=== PATIENT | male | born 1985 | race Caucasian/White ===

== ENCOUNTER 2016-12-19 21:46 | Observation (INO) | payer OTHER ==
[~2016-12-19] VITALS: Ht 175.3 cm; Wt 110.2 kg
[2016-12-19] MEDS ORDERED: ONDANSETRON 8 MG/54 ML D5W IV STA (22:19)
[2016-12-19] MEDS ORDERED: SODIUM CHLORIDE 0.9% 1000ML 1,000 ML IV STA (22:19)
[2016-12-19] MEDS ORDERED: MoRPHine SULFATE 4 MG/ML 1 ML CARP\\VIAL IV STA (22:19)
--- NOTE | 2016-12-19 22:21 | EMERGENCY ROOM VISIT NOTE ---
History Report prepared by Opal: Leonard Bowens Under the Supervision of: Alber JimenezO. First contact with patient: 22:02 Chief Complaint: ABDOMINAL PAIN Stated Complaint: ABD PAIN, GUARDING, EMESIS X4 History of Present Illness The patient is a 31 year old male who presents to the Emergency Room with complaints of worsening, waxing and waning right lower quadrant abdominal pain that started last night which has become constant today. He states that it is cramping and squeezing, and it feels like a 10/10 in severity. The patient states that he has never had pain like this in the past, and nothing makes it better or worse. The patient states that the pain does not go into his back. The patient denies any history of surgery, urinary symptoms, change in bowel movements, fevers, or chills. He additionally notes that this morning he vomited four times, and he kyle not take any medications. Pt denies headache, change in vision, fevers, chest pain, shortness of breath, diarrhea, and melena. Source of History: patient Onset: last night Position: abdomen (RLQ) Symptom Intensity: Quality: cramping, other (squeezing) Timing: constant Associated Symptoms: + nausea, + vomiting, No urinary symptoms Review of Systems See HPI for pertinent positives & negatives. A total of 10 systems reviewed and were otherwise negative. 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) Current/Historical Medications No Active Prescriptions or Reported Meds Allergies Coded Allergies: No Known Allergies (Unverified , 12/19/16) Physical Exam Vital Signs Date Time Temp Pulse Resp B/P (MAP) Pulse Ox O2 Delivery O2 Flow Rate FiO2 12/20/16 00:37 38.8 104 17 176/86 98 Room Air 12/20/16 00:33 12/19/16 23:50 93 17 151/88 96 Room Air 12/19/16 21:53 37.1 89 18 158/95 94 Room Air Physical Exam GENERAL: alert, well appearing, well nourished, no distress, non-toxic EYE EXAM: normal conjunctiva, PERRL and EOM's grossly intact OROPHARYNX: no exudate, no erythema, lips, buccal mucosa, and tongue normal and mucous membranes are moist NECK: supple, no nuchal rigidity, no adenopathy, non-tender LUNGS: Clear to auscultation. Normal chest wall mechanics HEART: no murmurs, S1 normal and S2 normal ABDOMEN: Right lower quadrant tenderness. \Abdomen soft, normo-active bowel sounds, no masses, no rebound or guarding. BACK: Back is symmetrical on inspection and there is no deformity, no midline tenderness, no CVA tenderness. SKIN: no rashes and no bruising UPPER EXTREMITIES: upper extremities are grossly normal. LOWER EXTREMITIES: No pitting edema. NEURO EXAM: Deaf Normal sensorium, cranial nerves II-XII grossly intact, no gross weakness of arms, no gross weakness of legs. Medical Decision & Procedures ER Provider Diagnostic Interpretation: Radiology results have been interpreted by the radiologist and reviewed by me. CT ABDOMEN & PELVIS: The appendix is dilated to 1.2 cm in caliber. There is wall thickening. Periappendiceal edema is present. A small appendicolith is noted. The combination of findings is compatible with acute appendicitis. No definite evidence for perforation or abscess in this noncontrast examination. Trace free fluid in the pelvis. Questionable 1.3 cm nodule in the first image at the medial right lower lobe. This is incompletely imaged. Follow-up with nonemergent/outpatient CT chest. Remainder of noncontrast study shows no definite evidence for an additional acute inflammatory process. Radiologist: Orlando Delong M.D. Laboratory Results 12/19/16 22:31 Red Blood Count 5.63, Mean Corpuscular Volume 88.3, Mean Corpuscular Hemoglobin 30.2, Mean Corpuscular Hemoglobin Concent 34.2, Mean Platelet Volume 9.7, Neutrophils (%) (Auto) 78.2, Lymphocytes (%) (Auto) 13.4, Monocytes (%) (Auto) 7.7, Eosinophils (%) (Auto) 0.2, Basophils (%) (Auto) 0.1, Neutrophils # (Auto) 14.19, Lymphocytes # (Auto) 2.44, Monocytes # (Auto) 1.40, Eosinophils # (Auto) 0.03, Basophils # (Auto) 0.02 12/19/16 22:31 Test 12/19/16 22:31 White Blood Count 18.16 K/uL (4.8-10.8) Red Blood Count 5.63 M/uL (4.7-6.1) Hemoglobin 17.0 g/dL (14.0-18.0) Hematocrit 49.7 % (42-52) Mean Corpuscular Volume 88.3 fL (80-100) Mean Corpuscular Hemoglobin 30.2 pg (25-34) Mean Corpuscular Hemoglobin Concent 34.2 g/dl (32-36) Platelet Count 290 K/uL (130-400) Mean Platelet Volume 9.7 fL (7.4-10.4) Neutrophils (%) (Auto) 78.2 % Lymphocytes (%) (Auto) 13.4 % Monocytes (%) (Auto) 7.7 % Eosinophils (%) (Auto) 0.2 % Basophils (%) (Auto) 0.1 % Neutrophils # (Auto) 14.19 K/uL (1.4-6.5) Lymphocytes # (Auto) 2.44 K/uL (1.2-3.4) Monocytes # (Auto) 1.40 K/uL (0.11-0.59) Eosinophils # (Auto) 0.03 K/uL (0-0.5) Basophils # (Auto) 0.02 K/uL (0-0.2) RDW Standard Deviation 44.5 fL (36.4-46.3) RDW Coefficient of Variation 13.7 % (11.5-14.5) Immature Granulocyte % (Auto) 0.4 % Immature Granulocyte # (Auto) 0.08 K/uL (0.00-0.02) Anion Gap 6.0 mmol/L (3-11) Estimated GFR () 127.1 Estimated GFR (Non- 109.7 BUN/Creatinine Ratio 8.4 (10-20) Calcium Level 9.8 mg/dl (8.5-10.1) Total Bilirubin 0.8 mg/dl (0.2-1) Aspartate Amino Transf (AST/SGOT) 11 U/L (15-37) Alanine Aminotransferase (ALT/SGPT) 29 U/L (12-78) Alkaline Phosphatase 99 U/L (45-117) Total Protein 8.2 gm/dl (6.4-8.2) Albumin 4.3 gm/dl (3.4-5.0) Globulin 3.9 gm/dl (2.5-4.0) Albumin/Globulin Ratio 1.1 (0.9-2) Lipase 45 U/L (73-393) Laboratory results per my review. Medications Administered Medications (Trade) Dose Ordered Sig/Chau Route Start Time Stop Time Status Last Admin Dose Admin Sodium Chloride 1,000 ml @ 200 mls/hr Q5H STAT IV 12/19/16 22:19 12/20/16 03:18 12/19/16 23:12 200 MLS/HR Morphine Sulfate (MoRPHine SULFATE INJ) 4 mg NOW STAT IV 12/19/16 22:19 12/19/16 22:20 DC 12/19/16 23:12 4 MG Ondansetron HCl (Zofran 8mg Iv) 8 mg NOW STAT IV 12/19/16 22:19 12/19/16 22:21 DC 12/19/16 23:12 8 MG Morphine Sulfate (MoRPHine SULFATE INJ) 4 mg NOW STAT IV 12/20/16 00:01 12/20/16 00:02 DC 12/20/16 00:18 4 MG ED Course 2202: The patient was evaluated in room C5. A complete history and physical exam was performed. 2219: Zofran 8mg IV, Morphine Sulfate 4mg IV, Sodium Chloride 1000 ml @ 200 mls/ hr IV 2345: I reevaluated the patient using the junior designer. I discussed the treatment plan with the patient, and he was agreeable to the plan. 2351: I reviewed the patient's case with Dr. Shaw. He will evaluate the patient for further management. Medical Decision Differential diagnosis: Etiologies such as appendicitis, diverticulitis, PUD, biliary pathology, UTI, pancreatitis, obstruction, mesenteric ischemia, aortic pathology, infections, inflammatory bowel disease, renal colic, as well as others were entertained. Patient well-appearing here, acute appendicitis confirmed on CAT scan, no perforation or abscess. Patient leukocytosis secondary to appendicitis, doubt additional occult infectious etiology. Doubt bacteremia/sepsis. Patient aware of all results was agreeable with plan. Discussed case with Dr. Shaw. I'll bedside discussions performed using junior designer via iPAD. Medication Reconcilliation Current Medication List: was personally reviewed by me Blood Pressure Screening Patient's blood pressure: Elevated blood pressure Blood pressure disposition: Elevated BP felt to be situational Consults Time Called: [phone] Consulting Physician: Dr. Shaw, Surgery Returned Call: [phone] I reviewed the patient's case with Dr. Shaw, Surgery. He will evaluate the patient for further management. Impression Primary Impression: Appendicitis Scribe Attestation The scribe's documentation has been prepared under my direction and personally reviewed by me in its entirety. I confirm that the note above accurately reflects all work, treatment, procedures, and medical decision making performed by me. Departure Information Dispostion Being Evaluated By Surgeon Prescriptions No Active Prescriptions or Reported Meds Patient Instructions My [facility] Problem Qualifiers Primary Impression: Appendicitis Appendicitis type: acute appendicitis Acute appendicitis type: with localized peritonitis Qualified Codes: K35.3 - Acute appendicitis with localized peritonitis
[2016-12-19 23:00] LABS: BASO % 0.1 %; BASO ABS # 0.02 K/uL (0-0.2); COMPLETE YES; EOS % 0.2 %; HEMATOCRIT 49.7 % (42-52); IG% 0.4 %; LYMPH % 13.4 %; LYMPH ABS # 2.44 K/uL (1.2-3.4); MEAN CELL VOLUME 88.3 fL (80-100); MEAN CORPUSCULAR HEMOGLOBIN 30.2 pg (25-34); MEAN CORPUSCULAR HGB CONC 34.2 g/dl (32-36); MEAN PLATELET VOLUME 9.7 fL (7.4-10.4); MONO % 7.7 %; NEUT % 78.2 %; PLATELET COUNT 290 K/uL (130-400); RED BLOOD COUNT 5.63 M/uL (4.7-6.1); WHITE BLOOD COUNT 18.16 K/uL (4.8-10.8)
[2016-12-19 23:20] LABS: ALT/SGPT 29 U/L (12-78); BLOOD UREA NITROGEN 8 mg/dl (7-18); BUN/CREATININE RATIO 8.4 (10-20); CALCIUM 9.8 mg/dl (8.5-10.1); CARBON DIOXIDE 29 mmol/L (21-32); CHLORIDE 103 mmol/L (98-107); CREATININE 0.92 mg/dl (0.60-1.40); GLUCOSE 107 mg/dl (70-99); SODIUM 138 mmol/L (136-145)
[2016-12-19 23:23] LABS: ALB/GLOB RATIO 1.1 (0.9-2); ALKALINE PHOSPHATASE 99 U/L (45-117); AST/SGOT 11 U/L (15-37)
[2016-12-20] VITALS (8 sets, daily range): BP systolic 115–129; BP diastolic 65–74; PULSE 62–116; TEMP 37–38.1; O2SAT 93–96; Ht 175.3 cm; Wt 110.2 kg
[2016-12-20] MEDS ORDERED: MoRPHine SULFATE 4 MG/ML 1 ML CARP\\VIAL IV STA (00:01)
[2016-12-20] MEDS ORDERED: BUPIVACAINE 0.5 % 5 MG/1 ML MPF 30ML VIAL ONE (00:27)
--- NOTE | 2016-12-20 00:31 | History and Physical ---
History & Physical Date & Time of Service: Dec 20, 2016 at 00:26 Chief Complaint: Abd Pain, Guarding, Emesis X4 Primary Care Physician: No Doctor, Assigned History of Present Illness Source: patient 31 yr old inmate presents with right lower quadrant pain of 1 days duration. Crampy, sharp, very severe (10/10), no radiation. Started earlier today, constant, worsening. No relation to activity. No relieving factors. Vomited earlier today. No fevers. Last meal was a small amount of rice at dinner, not hungry. No prior similar symptoms. Pt is deaf and a page designer was used. Past Medical/Surgical History Deaf. No other medical issues. No prior surgical procedures. 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 (prisoner) Allergies Coded Allergies: No Known Allergies (Unverified , 12/19/16) Home Medications No Active Prescriptions or Reported Meds Review of Systems Constitutional: No problem reported Eyes: No problem reported ENT: + hearing loss (pt is deaf), + problem reported Respiratory: No problem reported Cardiovascular: No problem reported Abdomen: + pain, + vomiting Musculoskeletal: No problem reported Genitourinary - Male: No problem reported Neurologic: No problem reported Endocrine: No problem reported Hematologic / Lymphatic: No problem reported Integumentary: No problem reported Allergic / Immunologic: No problem reported Physical Exam Vital Signs Date Time Temp Pulse Resp B/P (MAP) Pulse Ox O2 Delivery O2 Flow Rate FiO2 12/19/16 23:50 93 17 151/88 96 Room Air 12/19/16 21:53 37.1 89 18 158/95 94 Room Air General Appearance: WD/WN, no apparent distress Head: normocephalic, atraumatic Eyes: normal inspection, PERRL ENT: normal ENT inspection Neck: supple, no JVD Respiratory/Chest: lungs clear, normal breath sounds, no respiratory distress Cardiovascular: regular rate, rhythm, no JVD, no murmur Abdomen/GI: normal bowel sounds, soft, no organomegaly, + tenderness (over McBurney's point), + guarding Back: normal inspection, no muscle spasm Extremities/Musculoskelatal: no calf tenderness, no pedal edema Neurologic/Psych: alert, normal mood/affect, normal reflexes, oriented x 3 Skin: normal color, warm/dry Diagnostics Laboratory Results Results Past 24 Hours Test 9/8/17 22:31 Range/Units White Blood Count 18.16 4.8-10.8 K/uL Red Blood Count 5.63 4.7-6.1 M/uL Hemoglobin 17.0 14.0-18.0 g/dL Hematocrit 49.7 42-52 % Mean Corpuscular Volume 88.3 80-100 fL Mean Corpuscular Hemoglobin 30.2 25-34 pg Mean Corpuscular Hemoglobin Concent 34.2 32-36 g/dl Platelet Count 290 130-400 K/uL Mean Platelet Volume 9.7 7.4-10.4 fL Neutrophils (%) (Auto) 78.2 % Lymphocytes (%) (Auto) 13.4 % Monocytes (%) (Auto) 7.7 % Eosinophils (%) (Auto) 0.2 % Basophils (%) (Auto) 0.1 % Neutrophils # (Auto) 14.19 1.4-6.5 K/uL Lymphocytes # (Auto) 2.44 1.2-3.4 K/uL Monocytes # (Auto) 1.40 0.11-0.59 K/uL Eosinophils # (Auto) 0.03 0-0.5 K/uL Basophils # (Auto) 0.02 0-0.2 K/uL RDW Standard Deviation 44.5 36.4-46.3 fL RDW Coefficient of Variation 13.7 11.5-14.5 % Immature Granulocyte % (Auto) 0.4 % Immature Granulocyte # (Auto) 0.08 0.00-0.02 K/uL Sodium Level 138 136-145 mmol/L Potassium Level 4.0 3.5-5.1 mmol/L Chloride Level 103 98-107 mmol/L Carbon Dioxide Level 29 21-32 mmol/L Anion Gap 6.0 3-11 mmol/L Blood Urea Nitrogen 8 7-18 mg/dl Creatinine 0.92 0.60-1.40 mg/dl Estimated GFR () 127.1 Estimated GFR (Non- 109.7 BUN/Creatinine Ratio 8.4 10-20 Random Glucose 107 70-99 mg/dl Calcium Level 9.8 8.5-10.1 mg/dl Total Bilirubin 0.8 0.2-1 mg/dl Aspartate Amino Transf (AST/SGOT) 11 15-37 U/L Alanine Aminotransferase (ALT/SGPT) 29 12-78 U/L Alkaline Phosphatase 99 45-117 U/L Total Protein 8.2 6.4-8.2 gm/dl Albumin 4.3 3.4-5.0 gm/dl Globulin 3.9 2.5-4.0 gm/dl Albumin/Globulin Ratio 1.1 0.9-2 Lipase 45 73-393 U/L Diagnostic Radiology CT scan showed a 1.3 cm dilated appendix with periappendiceal stranding and appendicolith c/w acute appendicitis Impression Assessment and Plan 31 yr old man with acute appendicitis. Discussed laparoscopic appendectomy with risks of bleeding, infection, conversion to open, postop abscess. Expected overnight hospital stay and 1-2 wk recovery period reviewed. Postop instructions reviewed. Consent signed. For OR tonight.
[2016-12-20] MEDS ORDERED: CEFOXITIN 2000MG/60 ML D5W IV STA (00:44)
[2016-12-20] MEDS ORDERED: FENTANYL CITRATE INJ 50 MCG/1 ML 2 ML VIAL ONE ×3 (01:03→02:33)
[2016-12-20] MEDS ORDERED: PROPOFOL IV EMULSION 10 MG/ML 20 ML VIAL IV ONE (01:38)
[2016-12-20] MEDS ORDERED: LIDOCAINE HCL 2% 2 ML VIAL (20MG/ML) ONE (01:39)
[2016-12-20] MEDS ORDERED: DEXAMETHASONE SOD INJ 4 MG/ML VIAL ONE (01:40)
[2016-12-20] MEDS ORDERED: ONDANSETRON INJ 2 MG/ML 2 ML VIAL ONE ×2 (01:40→02:33)
[2016-12-20] MEDS ORDERED: ROCURONIUM BROMIDE 10 MG/ML 5 ML VIAL IV ONE (01:40)
[2016-12-20] MEDS ORDERED: CEFOXITIN SOD 1 GM VIAL ONE (01:43)
--- NOTE | 2016-12-20 02:13 | [facility] Post Operative Brief Note ---
Immediate Operative Summary Operative Date Dec 20, 2016. Pre-Operative Diagnosis Acute Appendicitis Post-Operative Diagnosis Acute Appendicitis Procedure(s) Performed Laparoscopic Appendectomy Surgeon Dr. Marie Shaw Quotation Checker Surgeon(s) None Estimated Blood Loss 5 cc Findings very dilated inflamed appendix with inflammation very difficult to enter abdomen - air was insufflated into the preperitoneal space Fluids (cc crystalloids) 1000 cc Specimens Per Surgeon A: Appendix Drains none Anesthesia GET Complication(s) None Disposition Recovery Room / PACU
[2016-12-20] MEDS ORDERED: MoRPHine SULFATE 2 MG/ML CARP IV PRN ×2 (02:15)
[2016-12-20] MEDS ORDERED: ACETAMINOPHEN 325 MG TAB PO PRN (02:15)
[2016-12-20] MEDS ORDERED: ONDANSETRON INJ 2 MG/ML 2 ML VIAL IV PRN ×2 (02:15→02:45)
[2016-12-20] MEDS ORDERED: OXYCODONE/ACETAMINOPHEN 5-325 TAB PO PRN ×2 (02:15)
[2016-12-20] MEDS ORDERED: IV FLUIDS COMPLETED PRN (02:30)
[2016-12-20] MEDS ORDERED: MEPERIDINE HCL 25 MG/ML CARP IV PRN (02:45)
[2016-12-20] MEDS ORDERED: HYDROmorphone INJ 1 MG/ML SYR IV PRN (02:45)
[2016-12-20] MEDS ORDERED: FENTANYL CITRATE INJ 50 MCG/1 ML 2 ML VIAL IV PRN (02:45)
[2016-12-20] MEDS ORDERED: EpHEDrine SULFATE INJ 50 MG/ML AMP IV PRN (02:45)
[2016-12-20] MEDS ORDERED: LABETALOL HCL IV 5 MG/ML 20ML IV PRN (02:45)
[2016-12-20] MEDS ORDERED: ATROPINE SULFATE 0.1 MG/ML 5ML SYR IV PRN (02:45)
--- NOTE | 2016-12-20 02:55 | Anesthesiology Progress Note ---
Anesthesia Post Op Note Date & Time Dec 20, 2016 at 02:54 Vital Signs Pain Intensity: 0 Vital Signs Past 12 Hours Date Time Temp Pulse Resp B/P (MAP) Pulse Ox O2 Delivery O2 Flow Rate FiO2 12/20/16 02:45 100 15 146/80 98 Nasal Cannula 2 12/20/16 02:35 99 15 160/87 99 Oxymask 10 12/20/16 02:25 86 18 161/79 99 Oxymask 10 12/20/16 02:17 36.4 86 17 156/90 100 Oxymask 10 12/20/16 00:37 38.8 104 17 176/86 98 Room Air 12/20/16 00:33 12/19/16 23:50 93 17 151/88 96 Room Air 12/19/16 21:53 37.1 89 18 158/95 94 Room Air Notes Mental Status: alert / awake / arousable, participated in evaluation Pt Amnestic to Procedure: Yes Nausea / Vomiting: adequately controlled Pain: adequately controlled Airway Patency, RR, SpO2: stable & adequate BP & HR: stable & adequate Hydration State: stable & adequate Anesthetic Complications: no major complications apparent
[2016-12-20] MEDS: D5W AND 1/2NSS + 20MEQ KCL 1,000 ML IV SCH ×2 (04:08→11:41)
[2016-12-20] MEDS: MoRPHine SULFATE 4 MG/ML 1 ML CARP\\VIAL IV PRN ×3 (05:13→09:10)
--- NOTE | 2016-12-20 05:49 | OPERATIVE REPORT ---
DATE OF OPERATION: 12/20/2016 PREOPERATIVE DIAGNOSIS: Acute appendicitis. POSTOPERATIVE DIAGNOSIS: Acute suppurative appendicitis. PROCEDURE: Laparoscopic appendectomy. SURGEON: Dr. Marie Shaw. COLORIST: None. ANESTHESIA: General endotracheal anesthesia. ESTIMATED BLOOD LOSS: 5 mL IV FLUIDS: 1000 mL SPECIMENS: Appendix. COMPLICATIONS: None. OPERATIVE FINDINGS: Suppurative inflamed appendix, very difficult to enter abdomen. Air was injected into the preperitoneal space on 3 separate attempts and this led to subcutaneous air tracking into his groin and scrotum. INDICATIONS: Mr. Cheema is a 31-year-old gentleman, who presented with acute appendicitis. He was consented regarding laparoscopic appendectomy. He had no prior surgical procedures. OPERATION AND FINDINGS: The patient received cefoxitin preoperatively. After the induction of general endotracheal anesthesia, he had placement of sequential compression devices. His abdomen was clipped and then sterilely prepped and draped. A supraumbilical incision was made. A Veress needle was attempted to be placed into the peritoneal cavity. This was tested with the saline drop test and pneumoperitoneum was attached. Initial pressure was 6 mmHg. For this reason, the Veress needle was removed and another attempt was made to reinsert the Veress again. This was tested with the saline drop test. Pneumoperitoneum was again connected. The pressure at this point was 7. The Veress needle was removed and the incision extended. An attempt was made to grasp the fascia. He had a significant amount of subcutaneous tissue over this with unusual elasticity to it. Again, a Veress needle was inserted. Attempt was made at insufflation after the saline drop test, appeared to be okay, but the pressure was again too high. Thus, the incision was again extended and carried all the way down. The fascia was finally visualized directly and grasped and the Veress needle placed into the peritoneal cavity and pneumoperitoneum taken to 15 mmHg and a 5 mm trocar placed. Inspection of the abdomen revealed that all the other attempts had never actually entered the abdominal cavity. He did have evidence of air in the abdominal wall. A 5 mm was placed in the left lower quadrant. The 5 mm at the umbilicus was changed to a 12 mm and another 5 mm placed in the midline pubic area. The appendix was noted to have suppurative changes and was attached to the sidewall. Inflammatory adhesions to it were taken down. The appendix was peeled off the sidewall. A window was created at the base of the appendix on the cecum and the appendix was divided off the cecum with a firing of the ASHLEY 45 purple load stapler. The appendiceal mesentery was taken with a second firing of the ASHLEY vascular load stapler. The appendix was placed in an Endobag and removed through the umbilical incision. The abdomen was irrigated and suctioned clear. The pneumoperitoneum was released. 30 mL of 0.5% Marcaine had been used for local anesthesia throughout the procedure. The fascia of the umbilicus was closed with 0 Vicryl stitches placed anteriorly. The skin of all 3 incisions was closed with running subcuticular 4-0 Vicryl sutures. Steri-Strips and sterile dressings were applied. At this point, it was noted that the patient's scrotum appeared to be swollen. This was inspected and it was just consistent with air within the subcutaneous spaces and his groin and scrotum. He was awakened from anesthesia and taken to recovery in stable condition. I attest to the content of the Intraoperative Record and any orders documented therein. Any exception s are noted below.
--- NOTE | 2016-12-20 06:01 | DIAGNOSTIC IMAGING REPORT ---
ABD/PELVIS NO IV OR ORAL CONT CT DOSE: 958.96 mGy.cm HISTORY: Pain. Nausea. RLA pain TECHNIQUE: Multiaxial CT images of the abdomen and pelvis were performed without contrast. A dose lowering technique was utilized adhering to the principles of ALARA. COMPARISON STUDY: None. FINDINGS: Lung bases are clear. Liver spleen and pancreas appear unremarkable. Kidneys negative for hydronephrosis. Spleen is uniform. The appendix is distended to 12 mm. There is moderate periappendiceal infiltrative change. There is no evidence for abscess collection or obstruction. There is a small 5 mm appendicolith. No evidence for drainable abscess or collection. Small amount of free fluid within the pelvic cul-de-sac. IMPRESSION: Acute appendicitis. No evidence for abscess collection or obstruction change. The above report was generated using voice recognition software. It may contain grammatical, syntax or spelling errors. Electronically signed by: Ángel Ignacio M.D. 12/20/2016 6:00 AM Dictated Date/Time: 12/20/2016 5:50 AM
--- NOTE | 2016-12-20 08:27 | Surgery Progress Note ---
Surgery Progress Note Date of Service Dec 20, 2016. Subjective Post OP Day: 1 + feeling well, + pain controlled (but is sore), No nausea Objective Vital Signs: Date Time Temp Pulse Resp B/P (MAP) Pulse Ox O2 Delivery O2 Flow Rate FiO2 12/20/16 06:15 37.4 104 18 115/65 (82) 93 Room Air 12/20/16 05:23 94 Room Air 12/20/16 05:15 37.6 116 18 123/72 (89) 96 Room Air 12/20/16 04:15 37.9 111 18 119/70 (86) 96 Room Air 12/20/16 03:45 37.4 62 16 129/69 (89) 94 Nasal Cannula 2.0 12/20/16 03:15 Nasal Cannula 2.0 12/20/16 03:15 95 Nasal Cannula 2.0 12/20/16 03:15 38.1 116 16 126/74 95 Nasal Cannula 2.0 12/20/16 03:05 113 16 133/70 96 Nasal Cannula 2 12/20/16 02:55 37.8 109 17 128/68 96 Nasal Cannula 2 12/20/16 02:45 100 15 146/80 98 Nasal Cannula 2 12/20/16 02:35 99 15 160/87 99 Oxymask 10 12/20/16 02:25 86 18 161/79 99 Oxymask 10 12/20/16 02:17 36.4 86 17 156/90 100 Oxymask 10 12/20/16 00:37 38.8 104 17 176/86 98 Room Air 12/20/16 00:33 12/19/16 23:50 93 17 151/88 96 Room Air 12/19/16 21:53 37.1 89 18 158/95 94 Room Air General Appearance: WD/WN, no apparent distress Respiratory/Chest: no respiratory distress, no accessory muscle use Abdomen: normal bowel sounds, non distended, soft, + tenderness (RLQ) Incision(s): clean, dry, intact Laboratory Results: Results Past 24 Hours Test 12/19/16 22:31 Range/Units White Blood Count 18.16 4.8-10.8 K/uL Red Blood Count 5.63 4.7-6.1 M/uL Hemoglobin 17.0 14.0-18.0 g/dL Hematocrit 49.7 42-52 % Mean Corpuscular Volume 88.3 80-100 fL Mean Corpuscular Hemoglobin 30.2 25-34 pg Mean Corpuscular Hemoglobin Concent 34.2 32-36 g/dl Platelet Count 290 130-400 K/uL Mean Platelet Volume 9.7 7.4-10.4 fL Neutrophils (%) (Auto) 78.2 % Lymphocytes (%) (Auto) 13.4 % Monocytes (%) (Auto) 7.7 % Eosinophils (%) (Auto) 0.2 % Basophils (%) (Auto) 0.1 % Neutrophils # (Auto) 14.19 1.4-6.5 K/uL Lymphocytes # (Auto) 2.44 1.2-3.4 K/uL Monocytes # (Auto) 1.40 0.11-0.59 K/uL Eosinophils # (Auto) 0.03 0-0.5 K/uL Basophils # (Auto) 0.02 0-0.2 K/uL RDW Standard Deviation 44.5 36.4-46.3 fL RDW Coefficient of Variation 13.7 11.5-14.5 % Immature Granulocyte % (Auto) 0.4 % Immature Granulocyte # (Auto) 0.08 0.00-0.02 K/uL Sodium Level 138 136-145 mmol/L Potassium Level 4.0 3.5-5.1 mmol/L Chloride Level 103 98-107 mmol/L Carbon Dioxide Level 29 21-32 mmol/L Anion Gap 6.0 3-11 mmol/L Blood Urea Nitrogen 8 7-18 mg/dl Creatinine 0.92 0.60-1.40 mg/dl Estimated GFR () 127.1 Estimated GFR (Non- 109.7 BUN/Creatinine Ratio 8.4 10-20 Random Glucose 107 70-99 mg/dl Calcium Level 9.8 8.5-10.1 mg/dl Total Bilirubin 0.8 0.2-1 mg/dl Aspartate Amino Transf (AST/SGOT) 11 15-37 U/L Alanine Aminotransferase (ALT/SGPT) 29 12-78 U/L Alkaline Phosphatase 99 45-117 U/L Total Protein 8.2 6.4-8.2 gm/dl Albumin 4.3 3.4-5.0 gm/dl Globulin 3.9 2.5-4.0 gm/dl Albumin/Globulin Ratio 1.1 0.9-2 Lipase 45 73-393 U/L Microbiology Results 12/20/16 MRSA DNA Surveillance Screen, Received Pending Assessment & Plan s/p lap appendectomy. Doing well. [facility] if he can tolerate diet.
--- NOTE | 2016-12-20 08:30 | Discharge Instructions ---
Discharge Instructions Date of Service Dec 20, 2016. Admission Reason for Admission: Appendicitis Discharge Discharge Diagnosis / Problem: acute appendicitis Discharge Goals Goal(s): Decrease discomfort Activity Recommendations Activity Limitations: resume your previous activity (walking/ stairs are OK) Lifting Limitations: no more than 10 pounds (for 2 wks) Exercise/Sports Limitations: gradually increase as tolerated (limit for 2 wks) Shower/Bathe: tomorrow (remove outer gauze dressings first, leave steristrips x 7-10 days) . Current Hospital Diet Patient's current hospital diet: Clear Liquid Diet Discharge Diet Recommended Diet: Regular Diet (soups/ liquids if bloating persists) Procedures Procedures Performed: Laparoscopic Appendectomy Pending Studies Studies pending at discharge: no Medical Emergencies . Who to Call and When: Medical Emergencies: If at any time you feel your situation is an emergency, please call 911 immediately. . Non-Emergent Contact Non-Emergency issues call your: Surgeon Contact Number: [phone] Call Non-Emergent contact if: temperature is above 101.5, your pain is not controlled, your pain is worsening . "Provider Documentation" section prepared by Marie Shaw. . VTE Core Measure Inpt VTE Proph given/why not?: SCD's [place] Drug Monitoring Program Search Results: patient reviewed within database
--- NOTE | 2016-12-20 08:32 | Discharge Summary ---
Discharge Summary Date of Service Dec 20, 2016. Admission Date/Reason Dec 20, 2016 at 02:15 Appendicitis. Discharge Date/Disposition Dec 20, 2016 Home (correctional facility) Diagnosis Principal Diagnosis: acute appendicitis Procedure(s) Performed laparoscopic appendectomy Medication Reconciliation Medication Profile: No Active Prescriptions or Reported Meds Admission Physical Exam As per Admitting History & Physical. Hospital Course Underwent an uncomplicated laparoscopic appendectomy. Diet advanced. Discharged back to correctional facility. Discharge Instructions Please refer to the electronic Patient Visit Report (Discharge Instructions) for additional information.
[2016-12-20] MEDS: CEFOXITIN IV 1,000 MG in DEXTROSE 5% 50ML 50 ML IV SCH ×2 (09:09→13:48)
[2016-12-21] MEDS ORDERED: TYLOTC500 PO (11:43)
[2017-01-18] MEDS ORDERED: IBUP-1459 PO (13:37)
== END 2016-12-20 14:42 | disposition home or self-care (01) ==
LOC: C.EDB 21:48 → C.MSW 12-20 02:15 → ENRESERV 12-20 03:10
PROVIDERS: ADMIT Surgery; ATTEND Surgery
DX: K35.80 Unspecified acute appendicitis (principal); H91.90 Unspecified hearing loss, unspecified ear; F17.200 Nicotine dependence, unspecified, uncomplicated

== ENCOUNTER 2016-12-21 10:08 | Inpatient (IN) | payer OTHER ==
[2016-12-21] VITALS (7 sets, daily range): BP systolic 129–149; BP diastolic 79–91; PULSE 97–119; TEMP 36.8–38.1; O2SAT 90–95; Ht 175.3 cm; Wt 110.0 kg
[~2016-12-21] VITALS: Ht 175.3 cm; Wt 110.0 kg
[2016-12-21] MEDS ORDERED: SODIUM CHLORIDE 0.9% 1000ML 1,000 ML IV STA (10:42)
[2016-12-21] MEDS ORDERED: SODIUM CHLORIDE 0.9% 1000ML 2,000 ML IV STA (10:42)
[2016-12-21] MEDS ORDERED: ONDANSETRON INJ 2 MG/ML 2 ML VIAL IV STA (10:42)
[2016-12-21] MEDS ORDERED: OPTIRAY 320 IV PRN (10:45)
[2016-12-21 11:04] LABS: BASO ABS # 0.01 K/uL (0-0.2); COMPLETE YES; HEMATOCRIT 42.7 % (42-52); IG% 0.4 %; LYMPH % 7.6 %; LYMPH ABS # 1.57 K/uL (1.2-3.4); MEAN CORPUSCULAR HEMOGLOBIN 30.5 pg (25-34); MEAN CORPUSCULAR HGB CONC 34.7 g/dl (32-36); MEAN PLATELET VOLUME 9.6 fL (7.4-10.4); MONO % 8.3 %; NEUT % 83.7 %; PLATELET COUNT 215 K/uL (130-400); RED BLOOD COUNT 4.85 M/uL (4.7-6.1); WHITE BLOOD COUNT 20.73 K/uL (4.8-10.8)
[2016-12-21] MEDS: HYDROmorphone INJ 1 MG/ML SYR IV PRN ×2 (11:05→11:46)
[2016-12-21 11:22] LABS: BLOOD UREA NITROGEN 7 mg/dl (7-18); CREATININE 0.83 mg/dl (0.60-1.40); GLUCOSE 99 mg/dl (70-99)
[2016-12-21 11:23] LABS: ALT/SGPT 19 U/L (12-78); BUN/CREATININE RATIO 8.6 (10-20); CALCIUM 9.4 mg/dl (8.5-10.1); CARBON DIOXIDE 29 mmol/L (21-32); CHLORIDE 103 mmol/L (98-107); POTASSIUM 3.7 mmol/L (3.5-5.1); SODIUM 138 mmol/L (136-145)
[2016-12-21 11:25] LABS: ALKALINE PHOSPHATASE 72 U/L (45-117); AST/SGOT 8 U/L (15-37)
[2016-12-21] MEDS ORDERED: TYLOTC500 PO (11:43)
[2016-12-21] MEDS ORDERED: OXYCODONE/ACETAMINOPHEN 5-325 TAB PO PRN (11:45)
[2016-12-21] MEDS ORDERED: MoRPHine SULFATE 2 MG/ML CARP IV PRN (11:45)
[2016-12-21] MEDS ORDERED: ACETAMINOPHEN 325 MG TAB PO PRN (11:45)
--- NOTE | 2016-12-21 11:47 | History and Physical ---
History & Physical Date & Time of Service: Dec 21, 2016 at 11:38 Chief Complaint: Appendectomy Yesterday - Possible Infection Primary Care Physician: [facility] History of Present Illness Source: patient 31 yr old man s/p lap appy early Sat am. Intraoperatively, it was difficult to access abdomen and a significant amount of air had been insufflated into the subcutaneous space. Once abdomen was entered, the appendectomy was uncomplicated. He was discharged back to the skilled nursing the same day but presents today with diffuse abdominal pain, worse if he lays down, feels it difficult to take a deep breath, nauseated. No vomiting. Did have a bowel movement. Pain is 10/10 in severity, radiates up to his diaphragm, right shoulder, arm. [place] chilled. Unable to get any sleep or rest. Past Medical/Surgical History deafness Social History Smoking Status: Unknown if Ever Smoked Marital Status: single Occupational Status: other Allergies Coded Allergies: No Known Allergies (Unverified , 12/19/16) Home Medications No Active Prescriptions or Reported Meds Review of Systems ROS otherwise negative Physical Exam Vital Signs Date Time Temp Pulse Resp B/P (MAP) Pulse Ox O2 Delivery O2 Flow Rate FiO2 12/21/16 11:19 98 12/21/16 11:08 94 20 140/89 94 Room Air 12/21/16 10:12 37.2 115 18 144/88 96 Room Air General Appearance: WD/WN, no apparent distress Head: normocephalic, atraumatic Eyes: normal inspection ENT: + 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, 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) Respiratory/Chest: lungs clear, normal breath sounds Cardiovascular: + tachycardia Abdomen/GI: normal bowel sounds (hypoactive), soft, + tenderness (diffusely with guarding), + distended (mild), + pertinent finding (incisions clean and intact) Extremities/Musculoskelatal: no pedal edema Neurologic/Psych: alert, oriented x 3 Skin: normal color, warm/dry Diagnostics Laboratory Results Results Past 24 Hours Test 12/21/16 10:55 Range/Units White Blood Count 20.73 4.8-10.8 K/uL Red Blood Count 4.85 4.7-6.1 M/uL Hemoglobin 14.8 14.0-18.0 g/dL Hematocrit 42.7 42-52 % Mean Corpuscular Volume 88.0 80-100 fL Mean Corpuscular Hemoglobin 30.5 25-34 pg Mean Corpuscular Hemoglobin Concent 34.7 32-36 g/dl Platelet Count 215 130-400 K/uL Mean Platelet Volume 9.6 7.4-10.4 fL Neutrophils (%) (Auto) 83.7 % Lymphocytes (%) (Auto) 7.6 % Monocytes (%) (Auto) 8.3 % Eosinophils (%) (Auto) 0.0 % Basophils (%) (Auto) 0.0 % Neutrophils # (Auto) 17.33 1.4-6.5 K/uL Lymphocytes # (Auto) 1.57 1.2-3.4 K/uL Monocytes # (Auto) 1.72 0.11-0.59 K/uL Eosinophils # (Auto) 0.01 0-0.5 K/uL Basophils # (Auto) 0.01 0-0.2 K/uL RDW Standard Deviation 46.4 36.4-46.3 fL RDW Coefficient of Variation 14.3 11.5-14.5 % Immature Granulocyte % (Auto) 0.4 % Immature Granulocyte # (Auto) 0.09 0.00-0.02 K/uL Sodium Level 138 136-145 mmol/L Potassium Level 3.7 3.5-5.1 mmol/L Chloride Level 103 98-107 mmol/L Carbon Dioxide Level 29 21-32 mmol/L Anion Gap 6.0 3-11 mmol/L Blood Urea Nitrogen 7 7-18 mg/dl Creatinine 0.83 0.60-1.40 mg/dl Estimated GFR () 134.9 Estimated GFR (Non- 116.4 BUN/Creatinine Ratio 8.6 10-20 Random Glucose 99 70-99 mg/dl Calcium Level 9.4 8.5-10.1 mg/dl Total Bilirubin 1.1 0.2-1 mg/dl Direct Bilirubin 0.4 0-0.2 mg/dl Aspartate Amino Transf (AST/SGOT) 8 15-37 U/L Alanine Aminotransferase (ALT/SGPT) 19 12-78 U/L Alkaline Phosphatase 72 45-117 U/L Total Protein 7.1 6.4-8.2 gm/dl Albumin 3.3 3.4-5.0 gm/dl Lipase 41 73-393 U/L Impression Assessment and Plan 31 yr old man s/p lap appy early Sat am presents with poor pain control likely due to extensive subcutaneous air insufflated during the multiple attempts to access his abdomen. He will require IV pain medications, IVF. Will give IV abx given his persistent leukocytosis. Explained that the subcutaneous air will resolve but this will take a few days. They are going to find out if it is possible to do narcotics for oral pain control in the skilled nursing. Await CT results but expectation is of a significant amount of subcutaneous emphysema. VTE Prophylaxis VTE Risk Assessment Done? Y/N: Yes Risk Level: Low
[2016-12-21 12:03] LABS: URINE APPEARANCE CLEAR (CLEAR); URINE BILIRUBIN NEG (NEG); URINE COLOR DK YELLOW; URINE EPITHELIAL CELL AUTO >30 /lpf (0-5); URINE NITRITE NEG (NEG); URINE PH 7.5 (4.5-7.5); URINE SPECIFIC GRAVITY 1.018 (1.000-1.030); UROBILINOGEN NEG (NEG); ZZUR CULT IF INDIC CLEAN CATCH YES
[2016-12-21 12:04] LABS: MANUAL MICROSCOPIC REQUIRED? NO; REVIEW REQ? NO
[2016-12-21 12:06] LABS: SULFASALICYLIC ACID NEG (NEG)
[2016-12-21] MEDS ORDERED: PATIENT'S HEIGHT AND/OR WEIGHT NEEDED SCH (12:45)
[2016-12-21 13:39] LABS: INR 1.1 (0.9-1.1); PARTIAL THROMBOPLASTIN RATIO 1.2; PROTHROMBIN TIME (PATIENT) 11.9 SECONDS (9.0-12.0)
[2016-12-21] MEDS: LACTATED RINGER'S 1000ML 1,000 ML IV SCH ×2 (13:50→21:35)
[2016-12-21] MEDS: CEFOXITIN IV 2,000 MG in DEXTROSE 5% 50ML 50 ML IV SCH ×3 (13:50→23:41)
[2016-12-21] MEDS ORDERED: IV FLUIDS COMPLETED PRN (14:00)
--- NOTE | 2016-12-21 14:02 | DIAGNOSTIC IMAGING REPORT ---
ABD/PELVIS IV AND ORAL CONT CT DOSE: 1115.11 mGy.cm HISTORY: Pain severe abd pain, recent appy TECHNIQUE: Multiaxial CT images of the abdomen and pelvis were performed following the use of intravenous and oral contrast. A dose lowering technique was utilized adhering to the principles of ALARA. COMPARISON STUDY: 12/19/2016 FINDINGS: interval segmental atelectasis right base. Minimal dependent bibasilar atelectasis. Free intra-abdominal air scattered throughout the abdomen and pelvis. Trace amount of retroperitoneal air as well as retroperitoneal areas distribution. Liver spleen and pancreas remain unremarkable. Postoperative changes involving the subcutaneous fat left lower anterior abdominal wall as well as periumbilical region. Air is scattered throughout the abdominal and pelvic as well as left inguinal regions regions most likely a postoperative basis. Interval appendectomy. Minimal infiltrative change in the region of the appendiceal location most likely postoperative. No evidence for abscess collection or obstruction. Trace free fluid within the pelvic cul-de-sac. Slight infiltrative change of the perirectal region again most likely postoperative. Bowel pattern again is nonobstructive. Mild/moderate small bowel distention possibly on the basis of a post operative ileus. Mild nonobstructive reactive colonic ileus. IMPRESSION: 1. Interval surgical appendectomy with minimal infiltrative/fibrotic change at the appendiceal resection site. This appears to be unremarkable on a postoperative basis. 2. No evidence for abscess collection or obstruction. 3. Scattered air within the abdomen, pelvic, left inguinal, and incisional site, . This appears to be postoperative. 4. Reactive small bowel as well as colonic ileus. 5. Segmental atelectasis right base with mild bibasilar dependent atelectasis. The above report was generated using voice recognition software. It may contain grammatical, syntax or spelling errors. Electronically signed by: Ángel Ignacio M.D. 12/21/2016 2:01 PM Dictated Date/Time: 12/21/2016 1:52 PM
[2016-12-21] MEDS: ENOXAPARIN 40 MG/0.4 ML SYR SQ SCH (14:14)
[2016-12-21] MEDS: OXYCODONE/ACETAMINOPHEN 5-325 TAB PO PRN ×3 (14:15→23:40)
[2016-12-21] MEDS: KETOROLAC TROMETHAMINE 15 MG/ML VIAL IV PRN (16:00)
--- NOTE | 2016-12-21 16:19 | EMERGENCY ROOM VISIT NOTE ---
History Report prepared by Opal: Dianne Narayan Under the Supervision of: Dr. Jacob Patton M.D. First contact with patient: 10:20 Chief Complaint: INFECTION Stated Complaint: APPENDECTOMY YESTERDAY - POSSIBLE INFECTION Nursing Triage Summary: Appendectomy yesterday performed at [facility], D/C'd yesterday at 1430, last night around 2140 diffuse abdominal pain started 12/21. History of Present Illness The patient is a 31 year old male who presents to the Emergency Room with complaints of an infection today. The patient reports having an appendectomy yesterday. He also complains of right-sided abdominal pain and back pain. He states that he was unable to sleep last night due to the pain and that laying down and deep breathing exacerbate the pain. The patient also has had dysuria, fevers, and chills. The patient reports taking Tylenol today which did not help. Pt denies LOC, headache, diaphoresis, visual changes, neck pain, chest pain, breathing difficulties, nausea, vomiting, melena, hematochezia, numbness, weakness, lymphadenopathy, rash, or other complaints. Source of History: patient Onset: today Position: abdomen Quality: other (infection ) Modifying Factors (Worsening): other (laying down , deep breathing ) Associated Symptoms: + fevers, + chills, + abdominal pain, + back pain, + urinary symptoms (dysuria), No chest pain Review of Systems See HPI for pertinent positives and negatives. A total of ten systems were reviewed and were otherwise negative. Past Medical & Surgical Medical Problems: (1) Abdominal pain (2) Deaf Family History No pertinent family history stated. Social History Smoking Status: Unknown if Ever Smoked Marital Status: single Housing Status: other Occupation Status: other Current/Historical Medications Scheduled Acetaminophen (Tylenol), 1,000 MG PO TID Allergies Coded Allergies: NO KNOWN DRUG ALLERGIES (Verified Allergy, Unknown, none, 12/21/16) Physical Exam Vital Signs Date Time Temp Pulse Resp B/P (MAP) Pulse Ox O2 Delivery O2 Flow Rate FiO2 12/21/16 11:19 98 12/21/16 11:08 94 20 140/89 94 Room Air 12/21/16 10:12 37.2 115 18 144/88 96 Room Air Physical Exam GENERAL: Awake, alert, uncomfortable appearing, in no distress HENT: Normocephalic, atraumatic. Oropharynx unremarkable. EYES: Normal conjunctiva. Sclera non-icteric. NECK: Supple. No nuchal rigidity. FROM. No JVD. RESPIRATORY: Clear to auscultation. CARDIAC: Regular rate, normal rhythm. Extremities warm and well perfused. Pulses equal. ABDOMEN: Diffuse tenderness that is worse on the right. Rebound and guarding present. Tenderness to percussion. RECTAL: Deferred. MUSCULOSKELETAL: Chest examination reveals no tenderness. The back is symmetrical on inspection without obvious abnormality. There is no CVA tenderness to palpation. No joint edema. LOWER EXTREMITIES: Calves are equal size bilaterally and non-tender. No edema. No discoloration. NEURO: Normal sensorium. No sensory or motor deficits noted. SKIN: No rash or jaundice noted. Medical Decision & Procedures ER Provider Diagnostic Interpretation: Radiology results as stated below per my review and radiologist interpretation: ABD/PELVIS IV AND ORAL CONT CT DOSE: 1115.11 mGy.cm HISTORY: Pain severe abd pain, recent appy TECHNIQUE: Multiaxial CT images of the abdomen and pelvis were performed following the use of intravenous and oral contrast. A dose lowering technique was utilized adhering to the principles of ALARA. COMPARISON STUDY: 12/19/2016 FINDINGS: interval segmental atelectasis right base. Minimal dependent bibasilar atelectasis. Free intra-abdominal air scattered throughout the abdomen and pelvis. Trace amount of retroperitoneal air as well as retroperitoneal areas distribution. Liver spleen and pancreas remain unremarkable. Postoperative changes involving the subcutaneous fat left lower anterior abdominal wall as well as periumbilical region. Air is scattered throughout the abdominal and pelvic as well as left inguinal regions regions most likely a postoperative basis. Interval appendectomy. Minimal infiltrative change in the region of the appendiceal location most likely postoperative. No evidence for abscess collection or obstruction. Trace free fluid within the pelvic cul-de-sac. Slight infiltrative change of the perirectal region again most likely postoperative. Bowel pattern again is nonobstructive. Mild/moderate small bowel distention possibly on the basis of a post operative ileus. Mild nonobstructive reactive colonic ileus. IMPRESSION: 1. Interval surgical appendectomy with minimal infiltrative/fibrotic change at the appendiceal resection site. This appears to be unremarkable on a postoperative basis. 2. No evidence for abscess collection or obstruction. 3. Scattered air within the abdomen, pelvic, left inguinal, and incisional site, . This appears to be postoperative. 4. Reactive small bowel as well as colonic ileus. 5. Segmental atelectasis right base with mild bibasilar dependent atelectasis. The above report was generated using voice recognition software. It may contain grammatical, syntax or spelling errors. Electronically signed by: Ángel Ignacio M.D. 12/21/2016 2:01 PM Dictated Date/Time: 12/21/2016 1:52 PM Laboratory Results 12/21/16 10:55 Red Blood Count 4.85, Mean Corpuscular Volume 88.0, Mean Corpuscular Hemoglobin 30.5, Mean Corpuscular Hemoglobin Concent 34.7, Mean Platelet Volume 9.6, Neutrophils (%) (Auto) 83.7, Lymphocytes (%) (Auto) 7.6, Monocytes (%) (Auto) 8.3, Eosinophils (%) (Auto) 0.0, Basophils (%) (Auto) 0.0, Neutrophils # (Auto) 17.33, Lymphocytes # (Auto) 1.57, Monocytes # (Auto) 1.72, Eosinophils # (Auto) 0.01, Basophils # (Auto) 0.01 12/21/16 10:55 Test 12/21/16 10:55 White Blood Count 20.73 K/uL (4.8-10.8) Red Blood Count 4.85 M/uL (4.7-6.1) Hemoglobin 14.8 g/dL (14.0-18.0) Hematocrit 42.7 % (42-52) Mean Corpuscular Volume 88.0 fL (80-100) Mean Corpuscular Hemoglobin 30.5 pg (25-34) Mean Corpuscular Hemoglobin Concent 34.7 g/dl (32-36) Platelet Count 215 K/uL (130-400) Mean Platelet Volume 9.6 fL (7.4-10.4) Neutrophils (%) (Auto) 83.7 % Lymphocytes (%) (Auto) 7.6 % Monocytes (%) (Auto) 8.3 % Eosinophils (%) (Auto) 0.0 % Basophils (%) (Auto) 0.0 % Neutrophils # (Auto) 17.33 K/uL (1.4-6.5) Lymphocytes # (Auto) 1.57 K/uL (1.2-3.4) Monocytes # (Auto) 1.72 K/uL (0.11-0.59) Eosinophils # (Auto) 0.01 K/uL (0-0.5) Basophils # (Auto) 0.01 K/uL (0-0.2) RDW Standard Deviation 46.4 fL (36.4-46.3) RDW Coefficient of Variation 14.3 % (11.5-14.5) Immature Granulocyte % (Auto) 0.4 % Immature Granulocyte # (Auto) 0.09 K/uL (0.00-0.02) Anion Gap 6.0 mmol/L (3-11) Estimated GFR () 134.9 Estimated GFR (Non- 116.4 BUN/Creatinine Ratio 8.6 (10-20) Calcium Level 9.4 mg/dl (8.5-10.1) Total Bilirubin 1.1 mg/dl (0.2-1) Direct Bilirubin 0.4 mg/dl (0-0.2) Aspartate Amino Transf (AST/SGOT) 8 U/L (15-37) Alanine Aminotransferase (ALT/SGPT) 19 U/L (12-78) Alkaline Phosphatase 72 U/L (45-117) Total Protein 7.1 gm/dl (6.4-8.2) Albumin 3.3 gm/dl (3.4-5.0) Lipase 41 U/L (73-393) Laboratory results reviewed by me Medications Administered Medications (Trade) Dose Ordered Sig/Chau Route Start Time Stop Time Status Last Admin Dose Admin Sodium Chloride 1,000 ml @ 125 mls/hr Q8H STAT IV 12/21/16 10:42 12/21/16 11:53 DC 12/21/16 11:00 125 MLS/HR Sodium Chloride 2,000 ml @ 999 mls/hr Q2H1M STAT IV 12/21/16 10:42 12/21/16 12:35 DC 12/21/16 10:59 999 MLS/HR Hydromorphone HCl (Dilaudid Inj) 1 mg Q15M PRN IV 12/21/16 10:45 12/21/16 11:54 DC 12/21/16 11:46 1 MG Ondansetron HCl (Zofran Inj) 4 mg NOW STAT IV 12/21/16 10:42 12/21/16 10:44 DC 12/21/16 11:04 4 MG Lactated Ringer's 1,000 ml @ 100 mls/hr Q10H IV 12/21/16 11:34 01/20/17 11:33 12/21/16 13:50 100 MLS/HR ED Course 1029: The patient was evaluated in room A11B. A complete history and physical exam was performed. 1042: Ordered Ondansetron HCl 4 mg IV, Sodium Chloride 2,000 ml @ 999 mls/hr IV , Sodium Chloride 1,000 ml @ 125 mls/hr IV. 1045: Ordered Dilaudid Inj 1 mg IV. 1100: Dr. Shaw agreed with the imaging and she noted that he had a lot of error insufflated for the procedure. She tried to prescribe pain medication for him, but the long-term wouldn't accept the prescription. 1150: Upon reexamination, the patient was resting. I discussed the test results and treatment plan with him. The patient will be evaluated for further management. Medical Decision Triage Nursing notes reviewed. The patient's presentation and history were concerning for Postoperative abdominal pain. Etiologies such as postoperative pain, perforation, diverticulitis, obstruction , inflammatory bowel disease, renal colic, PUD, biliary pathology, pancreatitis , mesenteric ischemia, aortic pathology, infections, genitourinary, UTI, perforated viscus, as well as others were entertained. The patient was evaluated. A transiting service was utilized as the patient is deaf and uses sign language. This went smoothly. The patient was treated with normal saline, Zofran, and Dilaudid. He was quite uncomfortable. The patient was prepped for CT imaging. He had a fairly significant leukocytosis. Chemistries and urinalysis were unremarkable otherwise. Consultation was made shortly after arrival with general surgery. The patient was evaluated by Dr. Shaw in the emergency department and she will admit him for further management. Please see her notes for further details. Medication Reconcilliation Current Medication List: was personally reviewed by me Blood Pressure Screening Patient's blood pressure: Elevated blood pressure Blood pressure disposition: Elevated BP felt to be situational Consults Time Called: 1050 Consulting Physician: Dr. Oleary Returned Call: 1100 Dr. Shaw agreed with the imaging and she noted that he had a lot of air insufflated for the procedure. She tried to prescribe pain medication for him, but the long-term wouldn't accept the prescription. Given the finding she will admit him to the hospital for further management. Impression Primary Impression: Generalized abdominal pain Scribe Attestation The scribe's documentation has been prepared under my direction and personally reviewed by me in its entirety. I confirm that the note above accurately reflects all work, treatment, procedures, and medical decision making performed by me. Departure Information Dispostion Being Evaluated By Surgeon Referrals [facility] (PCP) Patient Instructions [facility]
[2016-12-21] MEDS: ONDANSETRON INJ 2 MG/ML 2 ML VIAL IV PRN (20:55)
[2016-12-21] MEDS: MoRPHine SULFATE 2 MG/ML CARP IV PRN (20:55)
[2016-12-22 00:33] VITALS: BP 140/92; PULSE 108; TEMP 37
[2016-12-22] MEDS: OXYCODONE/ACETAMINOPHEN 5-325 TAB PO PRN ×4 (04:37→23:50)
[2016-12-22] MEDS: CEFOXITIN IV 2,000 MG in DEXTROSE 5% 50ML 50 ML IV SCH ×3 (05:40→19:18)
[2016-12-22 07:06] LABS: HEMATOCRIT 41.8 % (42-52); MEAN CELL VOLUME 88.4 fL (80-100); MEAN CORPUSCULAR HEMOGLOBIN 30.4 pg (25-34); MEAN CORPUSCULAR HGB CONC 34.4 g/dl (32-36); PLATELET COUNT 219 K/uL (130-400); RED BLOOD COUNT 4.73 M/uL (4.7-6.1); WHITE BLOOD COUNT 18.67 K/uL (4.8-10.8)
[2016-12-22 07:07] VITALS: BP 136/85; PULSE 96; TEMP 37; O2SAT 94
[2016-12-22 07:32] LABS: BUN/CREATININE RATIO 5.4 (10-20); CALCIUM 8.7 mg/dl (8.5-10.1); CREATININE 1.4 mg/dl (0.60-1.40); POTASSIUM 3.9 mmol/L (3.5-5.1)
[2016-12-22] MEDS: MoRPHine SULFATE 2 MG/ML CARP IV PRN ×3 (07:58→22:11)
[2016-12-22] MEDS: LACTATED RINGER'S 1000ML 1,000 ML IV SCH ×2 (08:09→18:13)
--- NOTE | 2016-12-22 09:35 | Surgery Progress Note ---
Surgery Progress Note Date of Service Dec 22, 2016. Subjective Post OP Day: 2 + complaints (pain about the same), + flatus, + diet (regular), No nausea, No vomiting Objective Vital Signs: Date Time Temp Pulse Resp B/P (MAP) Pulse Ox O2 Delivery O2 Flow Rate FiO2 12/22/16 08:00 Room Air 12/22/16 07:07 37.0 96 19 136/85 (102) 94 Room Air 12/22/16 00:33 37.0 108 18 140/92 (108) 12/21/16 23:45 Nasal Cannula 1.5 12/21/16 23:00 37.4 118 16 131/84 (100) 95 Nasal Cannula 2.0 12/21/16 22:04 36.9 117 18 149/91 (110) 90 Room Air 12/21/16 20:49 38.1 119 18 146/87 (106) 92 Room Air 12/21/16 20:00 94 Room Air 12/21/16 15:49 36.8 97 16 129/79 94 Room Air 12/21/16 15:46 Room Air 12/21/16 15:00 36.8 117 16 133/79 (97) 95 Room Air 12/21/16 12:30 36.8 97 16 129/79 (96) 94 Room Air 12/21/16 12:13 98 20 140/89 94 12/21/16 11:19 98 12/21/16 11:08 94 20 140/89 94 Room Air 12/21/16 10:12 37.2 115 18 144/88 96 Room Air General Appearance: WD/WN, no apparent distress Head: normocephalic, atraumatic Neck: supple, trachea midline Respiratory/Chest: chest non-tender, lungs clear Cardiovascular: regular rate, rhythm Abdomen: normal bowel sounds, non distended, soft, + tenderness (incisional) Incision(s): clean, dry, intact Extremities: non-tender, no pedal edema Laboratory Results: Results Past 24 Hours Test 12/21/16 10:55 12/21/16 11:50 12/21/16 12:48 12/22/16 06:23 Range/Units White Blood Count 20.73 18.67 4.8-10.8 K/uL Red Blood Count 4.85 4.73 4.7-6.1 M/uL Hemoglobin 14.8 14.4 14.0-18.0 g/dL Hematocrit 42.7 41.8 42-52 % Mean Corpuscular Volume 88.0 88.4 80-100 fL Mean Corpuscular Hemoglobin 30.5 30.4 25-34 pg Mean Corpuscular Hemoglobin Concent 34.7 34.4 32-36 g/dl Platelet Count 215 219 130-400 K/uL Mean Platelet Volume 9.6 10.0 7.4-10.4 fL Neutrophils (%) (Auto) 83.7 % Lymphocytes (%) (Auto) 7.6 % Monocytes (%) (Auto) 8.3 % Eosinophils (%) (Auto) 0.0 % Basophils (%) (Auto) 0.0 % Neutrophils # (Auto) 17.33 1.4-6.5 K/uL Lymphocytes # (Auto) 1.57 1.2-3.4 K/uL Monocytes # (Auto) 1.72 0.11-0.59 K/uL Eosinophils # (Auto) 0.01 0-0.5 K/uL Basophils # (Auto) 0.01 0-0.2 K/uL RDW Standard Deviation 46.4 47.0 36.4-46.3 fL RDW Coefficient of Variation 14.3 14.4 11.5-14.5 % Immature Granulocyte % (Auto) 0.4 % Immature Granulocyte # (Auto) 0.09 0.00-0.02 K/uL Sodium Level 138 137 136-145 mmol/L Potassium Level 3.7 3.9 3.5-5.1 mmol/L Chloride Level 103 103 98-107 mmol/L Carbon Dioxide Level 29 29 21-32 mmol/L Anion Gap 6.0 5.0 3-11 mmol/L Blood Urea Nitrogen 7 7 7-18 mg/dl Creatinine 0.83 1.40 0.60-1.40 mg/dl Estimated GFR () 134.9 76.5 Estimated GFR (Non- 116.4 66.0 BUN/Creatinine Ratio 8.6 5.4 10-20 Random Glucose 99 134 70-99 mg/dl Calcium Level 9.4 8.7 8.5-10.1 mg/dl Total Bilirubin 1.1 0.2-1 mg/dl Direct Bilirubin 0.4 0-0.2 mg/dl Aspartate Amino Transf (AST/SGOT) 8 15-37 U/L Alanine Aminotransferase (ALT/SGPT) 19 12-78 U/L Alkaline Phosphatase 72 45-117 U/L Total Protein 7.1 6.4-8.2 gm/dl Albumin 3.3 3.4-5.0 gm/dl Lipase 41 73-393 U/L Urine Color DK YELLOW Urine Appearance CLEAR CLEAR Urine pH 7.5 4.5-7.5 Urine Specific [place] 1.018 1.000-1.030 Urine Protein NEG NEG Urine Glucose (UA) NEG NEG Urine Ketones NEG NEG Urine Occult Blood TRACE NEG Urine Nitrite NEG NEG Urine Bilirubin NEG NEG Urine Urobilinogen NEG NEG Urine Leukocyte Esterase MODERATE NEG Urine WBC (Auto) >30 0-5 /hpf Urine RBC (Auto) 0-4 0-4 /hpf Urine Hyaline Casts (Auto) 1-5 0-5 /lpf Urine Epithelial Cells (Auto) >30 0-5 /lpf Urine Bacteria (Auto) NEG NEG Prothrombin Time 11.9 9.0-12.0 SECONDS Prothromb Time International Ratio 1.1 0.9-1.1 Activated Partial Thromboplast Time 29.9 21.0-31.0 SECONDS Partial Thromboplastin Ratio 1.2 Est Creatinine Clear Calc Drug Dose 92.6 ml/min Microbiology Results 12/21/16 MRSA DNA Surveillance Screen - Final, Complete Specimen Negative for MRSA by DNA Probe 12/21/16 Urine Culture, Received Pending Assessment & Plan s/p lap appendectomy with poor pain control -WBC down to 18 -taking po well -vitals stable -con't IV abx till tomorrow or Thursday
[2016-12-22] MEDS: KETOROLAC TROMETHAMINE 15 MG/ML VIAL IV PRN (10:05)
[2016-12-22] MEDS: ENOXAPARIN 40 MG/0.4 ML SYR SQ SCH (14:24)
[2016-12-22 15:32] VITALS: BP 141/83; PULSE 93; TEMP 37.1; O2SAT 91
[2016-12-22] MEDS: ONDANSETRON INJ 2 MG/ML 2 ML VIAL IV PRN (20:29)
[2016-12-22 22:57] VITALS: BP 141/95; PULSE 107; TEMP 36.8; O2SAT 92
[2016-12-23] MEDS: CEFOXITIN IV 2,000 MG in DEXTROSE 5% 50ML 50 ML IV SCH ×4 (01:27→19:29)
[2016-12-23] MEDS: MoRPHine SULFATE 2 MG/ML CARP IV PRN ×2 (02:42→05:13)
[2016-12-23] MEDS: LACTATED RINGER'S 1000ML 1,000 ML IV SCH ×3 (03:15→23:01)
[2016-12-23] MEDS: ONDANSETRON INJ 2 MG/ML 2 ML VIAL IV PRN ×3 (05:12→16:44)
[2016-12-23 06:31] LABS: BASO % 0.1 %; BASO ABS # 0.01 K/uL (0-0.2); COMPLETE YES; EOS % 0.5 %; HEMATOCRIT 42.4 % (42-52); IG% 0.5 %; LYMPH % 5.2 %; LYMPH ABS # 0.79 K/uL (1.2-3.4); MEAN CORPUSCULAR HEMOGLOBIN 29.9 pg (25-34); MEAN PLATELET VOLUME 9.9 fL (7.4-10.4); MONO % 7.1 %; NEUT % 86.6 %; PLATELET COUNT 235 K/uL (130-400); RED BLOOD COUNT 4.82 M/uL (4.7-6.1); WHITE BLOOD COUNT 15.25 K/uL (4.8-10.8)
[2016-12-23 07:10] VITALS: BP 145/89; PULSE 95; TEMP 36.9; O2SAT 94
[2016-12-23] MEDS: MoRPHine SULFATE 4 MG/ML 1 ML CARP\\VIAL IV PRN ×3 (07:57→19:25)
--- NOTE | 2016-12-23 08:16 | Surgery Progress Note ---
Surgery Progress Note Date of Service Dec 23, 2016. Subjective Continued pain. Feels like he has to have a bowel movement but it hurts to push. Vomited last night. Objective Vital Signs: Date Time Temp Pulse Resp B/P (MAP) Pulse Ox O2 Delivery O2 Flow Rate FiO2 12/23/16 07:10 36.9 95 18 145/89 (107) 94 Room Air 12/23/16 00:00 Room Air 12/22/16 22:57 36.8 107 16 141/95 (110) 92 Room Air 12/22/16 15:40 Room Air 12/22/16 15:32 37.1 93 17 141/83 (102) 91 Room Air General Appearance: WD/WN, no apparent distress Respiratory/Chest: lungs clear, normal breath sounds Cardiovascular: regular rate, rhythm Abdomen: normal bowel sounds, soft, + distended (mild), + tenderness (diffusely ) Incision(s): clean, dry, intact Laboratory Results: Results Past 24 Hours Test 12/23/16 05:59 Range/Units White Blood Count 15.25 4.8-10.8 K/uL Red Blood Count 4.82 4.7-6.1 M/uL Hemoglobin 14.4 14.0-18.0 g/dL Hematocrit 42.4 42-52 % Mean Corpuscular Volume 88.0 80-100 fL Mean Corpuscular Hemoglobin 29.9 25-34 pg Mean Corpuscular Hemoglobin Concent 34.0 32-36 g/dl Platelet Count 235 130-400 K/uL Mean Platelet Volume 9.9 7.4-10.4 fL Neutrophils (%) (Auto) 86.6 % Lymphocytes (%) (Auto) 5.2 % Monocytes (%) (Auto) 7.1 % Eosinophils (%) (Auto) 0.5 % Basophils (%) (Auto) 0.1 % Neutrophils # (Auto) 13.22 1.4-6.5 K/uL Lymphocytes # (Auto) 0.79 1.2-3.4 K/uL Monocytes # (Auto) 1.09 0.11-0.59 K/uL Eosinophils # (Auto) 0.07 0-0.5 K/uL Basophils # (Auto) 0.01 0-0.2 K/uL RDW Standard Deviation 47.0 36.4-46.3 fL RDW Coefficient of Variation 14.4 11.5-14.5 % Immature Granulocyte % (Auto) 0.5 % Immature Granulocyte # (Auto) 0.07 0.00-0.02 K/uL Assessment & Plan s/p lap appy with persistent pain, leukocytosis, mild ileus. CT with postop changes only. Will continue IV abx, start laxatives. Back diet off to full liquids until bowels are functioning.
[2016-12-23] MEDS: POLYETHYLENE (MIRALAX) 17 GM PACK PO SCH (10:39)
[2016-12-23] MEDS: ENOXAPARIN 40 MG/0.4 ML SYR SQ SCH (14:50)
[2016-12-23 14:54] VITALS: BP 143/91; PULSE 104; TEMP 37.6; O2SAT 92
[2016-12-23 23:03] VITALS: BP 162/93; PULSE 90; TEMP 37; O2SAT 93
[2016-12-24] MEDS: CEFOXITIN IV 2,000 MG in DEXTROSE 5% 50ML 50 ML IV SCH ×2 (01:05→07:51)
[2016-12-24] MEDS: MoRPHine SULFATE 4 MG/ML 1 ML CARP\\VIAL IV PRN ×3 (02:09→09:11)
[2016-12-24 04:00] VITALS: BP 148/92
[2016-12-24 06:52] VITALS: BP 139/89; PULSE 92; TEMP 37; O2SAT 90
[2016-12-24 07:36] LABS: HEMATOCRIT 42.2 % (42-52); MEAN CELL VOLUME 88.8 fL (80-100); MEAN CORPUSCULAR HEMOGLOBIN 30.5 pg (25-34); MEAN CORPUSCULAR HGB CONC 34.4 g/dl (32-36); MEAN PLATELET VOLUME 9.6 fL (7.4-10.4); PLATELET COUNT 253 K/uL (130-400); RED BLOOD COUNT 4.75 M/uL (4.7-6.1); WHITE BLOOD COUNT 10.31 K/uL (4.8-10.8)
[2016-12-24] MEDS: POLYETHYLENE (MIRALAX) 17 GM PACK PO SCH (09:00)
[2016-12-24] MEDS: ONDANSETRON INJ 2 MG/ML 2 ML VIAL IV PRN (09:10)
[2016-12-24] MEDS: LACTATED RINGER'S 1000ML 1,000 ML IV SCH ×2 (09:14→19:31)
--- NOTE | 2016-12-24 12:07 | Surgery Progress Note ---
Surgery Progress Note Date of Service Dec 24, 2016. Subjective Post OP Day: 4 (s/p lap appy) Not feeling to well today, feels bloated and abdominal pain still rated an 8/10 Not passing flatus or bowel movement Slight nausea today, had small emesis less than 20 cc Per nursing staff, had burning on urination this morning and cloudy murky urine Objective Vital Signs: Date Time Temp Pulse Resp B/P (MAP) Pulse Ox O2 Delivery O2 Flow Rate FiO2 12/24/16 08:00 Room Air 12/24/16 06:52 37.0 92 18 139/89 (106) 90 Room Air 12/24/16 04:00 148/92 (110) 12/23/16 23:03 37.0 90 16 162/93 (116) 93 Room Air 12/23/16 19:45 Room Air 12/23/16 14:54 37.6 104 18 143/91 (108) 92 Room Air General Appearance: no apparent distress (sleeping on encounter), + obese Head: normocephalic, atraumatic Neck: trachea midline Respiratory/Chest: no respiratory distress, no accessory muscle use Abdomen: soft, + distended (mildy distended), + tenderness (tenderness to lower abdomen bilaterally, appropriate post op, no peritonitis, rigidity, or involuntary guarding) Incision(s): clean, dry, intact, erythema (around supraumbilical incision however no signs of infection) Laboratory Results: Results Past 24 Hours Test 12/24/16 07:05 Range/Units White Blood Count 10.31 4.8-10.8 K/uL Red Blood Count 4.75 4.7-6.1 M/uL Hemoglobin 14.5 14.0-18.0 g/dL Hematocrit 42.2 42-52 % Mean Corpuscular Volume 88.8 80-100 fL Mean Corpuscular Hemoglobin 30.5 25-34 pg Mean Corpuscular Hemoglobin Concent 34.4 32-36 g/dl RDW Standard Deviation 47.2 36.4-46.3 fL RDW Coefficient of Variation 14.3 11.5-14.5 % Platelet Count 253 130-400 K/uL Mean Platelet Volume 9.6 7.4-10.4 fL Assessment & Plan POD # 4 s/p Laparoscopic Appendectomy, Post operative Ileus -Leukocytosis resolved -NGT with 700 cc in 8 hour shift, bilious - abdomen distended, soft, tender, no peritonitis - Urine cloudy/murky with dysuria Plan: Continue Pain management as needed IV Morphine Continue NPO and NGT to LIS until return of bowel function Encouraged OOB to chair and ambulation in the room, may clamp NGT for short periods to allow ambulation, resume to suction if nauseated Continue IV fluids UA and culture if indicated repeat am labs Continue Lovenox and SCDs Pt seen and examined. Leukocytosis is resolved. Has a profound ileus - likely due to large doses of narcotics. Explained the need to minimize narcotics, increase ambulation. Will try toradol and cut morphine dose down to 2 mg.
[2016-12-24 12:54] LABS: URINE APPEARANCE TURBID (CLEAR); URINE COLOR DK YELLOW; URINE EPITHELIAL CELL AUTO 0-5 /lpf (0-5); URINE NITRITE NEG (NEG); URINE PH >= 9.0 (4.5-7.5); URINE SPECIFIC GRAVITY 1.022 (1.000-1.030); UROBILINOGEN NEG (NEG); ZZUR CULT IF INDIC CLEAN CATCH YES
[2016-12-24 13:04] LABS: MANUAL MICROSCOPIC REQUIRED? NO; REVIEW REQ? NO
[2016-12-24 13:15] LABS: SULFASALICYLIC ACID NEG (NEG); URINE BILIRUBIN NEG (NEG)
[2016-12-24] MEDS: ENOXAPARIN 40 MG/0.4 ML SYR SQ SCH (14:30)
[2016-12-24] MEDS: KETOROLAC TROMETHAMINE 15 MG/ML VIAL IV PRN (14:59)
[2016-12-24 16:07] VITALS: BP 133/76; PULSE 102; TEMP 37.2; O2SAT 90
[2016-12-24] MEDS: MoRPHine SULFATE 2 MG/ML CARP IV PRN ×3 (19:32→23:56)
[2016-12-24] MEDS: OXYCODONE/ACETAMINOPHEN 5-325 TAB PO PRN (22:21)
[2016-12-24 23:50] VITALS: BP 131/82; PULSE 109; TEMP 37.6; O2SAT 92
[2016-12-25] MEDS: LACTATED RINGER'S 1000ML 1,000 ML IV SCH ×2 (04:36→15:31)
[2016-12-25] MEDS: POLYETHYLENE (MIRALAX) 17 GM PACK PO SCH (07:11)
[2016-12-25 07:18] VITALS: BP 148/87; PULSE 105; TEMP 37.4; O2SAT 91
[2016-12-25] MEDS: KETOROLAC TROMETHAMINE 15 MG/ML VIAL IV PRN (07:34)
[2016-12-25 08:06] LABS: HEMATOCRIT 41.7 % (42-52); MEAN CELL VOLUME 89.3 fL (80-100); MEAN CORPUSCULAR HEMOGLOBIN 29.6 pg (25-34); MEAN CORPUSCULAR HGB CONC 33.1 g/dl (32-36); MEAN PLATELET VOLUME 9.5 fL (7.4-10.4); PLATELET COUNT 234 K/uL (130-400); RED BLOOD COUNT 4.67 M/uL (4.7-6.1); WHITE BLOOD COUNT 7.25 K/uL (4.8-10.8)
[2016-12-25 08:41] LABS: BUN/CREATININE RATIO 23.7 (10-20); CALCIUM 8.7 mg/dl (8.5-10.1); CREATININE 0.68 mg/dl (0.60-1.40); POTASSIUM 3.6 mmol/L (3.5-5.1)
--- NOTE | 2016-12-25 10:46 | Surgery Progress Note ---
Surgery Progress Note Date of Service Dec 25, 2016. Subjective Post OP Day: 5 (s/p lap appendectomy) Feeling slightly better today, less bloated, passing gas (per information security architect pt had bowel movement after walking hallways however nurse states she did not see) , Pain still moderate 8 1/2 on a scale of 10, per nursing staff he is ringing every hour for pain medication Walked some this morning Objective Vital Signs: Date Time Temp Pulse Resp B/P (MAP) Pulse Ox O2 Delivery O2 Flow Rate FiO2 12/25/16 07:30 Room Air 12/25/16 07:18 37.4 105 19 148/87 (107) 91 Room Air 12/25/16 00:00 Room Air 12/24/16 23:50 37.6 109 16 131/82 (98) 92 Room Air 12/24/16 20:00 Room Air 12/24/16 16:07 37.2 102 18 133/76 (95) 90 Room Air Physical Exam: nasogastric drainage (dark changed from bilious to dark brown to red.) General Appearance: no apparent distress (sleeping on encounter), + obese Head: normocephalic, atraumatic Neck: trachea midline Respiratory/Chest: no respiratory distress, no accessory muscle use Abdomen: soft, + distended (less distended today, very minimal), + tenderness ( moderate and generalized on light palpation) Incision(s): clean, dry, intact, no drainage, erythema (midline supraumbilical incision, no signs of infection) Laboratory Results: Results Past 24 Hours Test 12/24/16 12:30 12/25/16 07:08 Range/Units Urine Color DK YELLOW Urine Appearance TURBID CLEAR Urine pH >= 9.0 4.5-7.5 Urine Specific [place] 1.022 1.000-1.030 Urine Protein NEG NEG Urine Glucose (UA) NEG NEG Urine Ketones 1+ NEG Urine Occult Blood NEG NEG Urine Nitrite NEG NEG Urine Bilirubin NEG NEG Urine Urobilinogen NEG NEG Urine Leukocyte Esterase MODERATE NEG Urine WBC (Auto) >30 0-5 /hpf Urine RBC (Auto) 0-4 0-4 /hpf Urine Hyaline Casts (Auto) 5-10 0-5 /lpf Urine Epithelial Cells (Auto) 0-5 0-5 /lpf Urine Bacteria (Auto) NEG NEG White Blood Count 7.25 4.8-10.8 K/uL Red Blood Count 4.67 4.7-6.1 M/uL Hemoglobin 13.8 14.0-18.0 g/dL Hematocrit 41.7 42-52 % Mean Corpuscular Volume 89.3 80-100 fL Mean Corpuscular Hemoglobin 29.6 25-34 pg Mean Corpuscular Hemoglobin Concent 33.1 32-36 g/dl RDW Standard Deviation 47.2 36.4-46.3 fL RDW Coefficient of Variation 14.3 11.5-14.5 % Platelet Count 234 130-400 K/uL Mean Platelet Volume 9.5 7.4-10.4 fL Sodium Level 137 136-145 mmol/L Potassium Level 3.6 3.5-5.1 mmol/L Chloride Level 100 98-107 mmol/L Carbon Dioxide Level 30 21-32 mmol/L Anion Gap 7.0 3-11 mmol/L Blood Urea Nitrogen 16 7-18 mg/dl Creatinine 0.68 0.60-1.40 mg/dl Est Creatinine Clear Calc Drug Dose 190.7 ml/min Estimated GFR () 146.5 Estimated GFR (Non- 126.4 BUN/Creatinine Ratio 23.7 10-20 Random Glucose 68 70-99 mg/dl Calcium Level 8.7 8.5-10.1 mg/dl Microbiology Results 12/24/16 Urine Culture, Received Pending Assessment & Plan POD # 5 s/p Laparoscopic Appendectomy, Post operative Ileus -Leukocytosis resolved -NGT with 250 cc since 11 pm, output dark and red - H&H stable - abdomen distended but vastly improved compared to yesterday, soft, tender, no peritonitis Plan: Pain management, will change Toradol to 30 IV q 6 hours, try to reduce amount of narcotics Continue NPO and NGT to LIS until return of bowel function gastric Hemoccult NGT output, may need to start IV PPI based on Hemoccult results Encouraged OOB to chair and ambulation in the room, may clamp NGT for short periods to allow ambulation, resume to suction if nauseated Continue IV fluids Urine culture pending Continue Lovenox and SCDs Pt seen and examined. Still with narcotic induced ileus although guard reports bowel movement. He is resting comfortably. NG in place. Abdomen less distended. Will decrease narcotics. Likely d/c ng tomorrow. Encourage ambulation.
[2016-12-25 13:10] LABS: GASTRIC OCCULT BLOOD NEG (NEG)
[2016-12-25 13:11] LABS: GASTRIC OCCULT BLOOD PH 3
[2016-12-25] MEDS: PANTOprazole INJ 40 MG in SYRINGE 0 ML IV SCH (13:44)
[2016-12-25] MEDS: KETOROLAC TROMETHAMINE 30 MG/ML VIAL IV PRN ×2 (13:44→20:55)
[2016-12-25] MEDS: ENOXAPARIN 40 MG/0.4 ML SYR SQ SCH (13:45)
[2016-12-25 14:59] VITALS: BP 141/84; PULSE 108; TEMP 37.1; O2SAT 94
[2016-12-25 21:57] VITALS: BP 143/85; PULSE 102; TEMP 36.7; O2SAT 91
[2016-12-25 23:27] VITALS: BP 135/74; PULSE 86; TEMP 37.2; O2SAT 92
[2016-12-25] MEDS: MoRPHine SULFATE 2 MG/ML CARP IV PRN (23:28)
[2016-12-26] MEDS: LACTATED RINGER'S 1000ML 1,000 ML IV SCH ×3 (01:26→20:33)
[2016-12-26] MEDS: ONDANSETRON INJ 2 MG/ML 2 ML VIAL IV PRN (03:47)
[2016-12-26] MEDS: KETOROLAC TROMETHAMINE 30 MG/ML VIAL IV PRN ×2 (03:48→20:33)
[2016-12-26 07:03] VITALS: BP 119/72; PULSE 90; TEMP 36.6; O2SAT 92
[2016-12-26] MEDS: POLYETHYLENE (MIRALAX) 17 GM PACK PO SCH (08:03)
[2016-12-26] MEDS: MoRPHine SULFATE 2 MG/ML CARP IV PRN ×5 (08:09→23:53)
[2016-12-26] MEDS: PANTOprazole INJ 40 MG in SYRINGE 0 ML IV SCH (10:32)
--- NOTE | 2016-12-26 12:22 | Surgery Progress Note ---
Surgery Progress Note Date of Service Dec 26, 2016. Subjective Post OP Day: POD # 6 s/p emmanuel eason States he did not feel well last night dizziness and abdominal pain Abdominal pain still rated 8/10 Had bowel movements yesterday and passed flatus Belly less bloated Walking the hallways Objective Vital Signs: Date Time Temp Pulse Resp B/P (MAP) Pulse Ox O2 Delivery O2 Flow Rate FiO2 12/26/16 08:15 Room Air 12/26/16 07:03 36.6 90 16 119/72 (88) 92 Room Air 12/25/16 23:45 Room Air 12/25/16 23:27 37.2 86 16 135/74 (94) 92 Room Air 12/25/16 21:57 36.7 102 18 143/85 (104) 91 Room Air 12/25/16 15:15 Room Air 12/25/16 14:59 37.1 108 18 141/84 (103) 94 Room Air General Appearance: WD/WN, no apparent distress (sleeping on encounter) Head: normocephalic, atraumatic Neck: trachea midline Respiratory/Chest: no respiratory distress, no accessory muscle use Abdomen: non distended, soft, + tenderness (there is tenderness in the RLQ and LLQ on palpation, no rigidity, peritionitis, or rebound) Incision(s): clean, dry, intact, no drainage, erythema (no change in erythema of supraumbilical incision) Assessment & Plan POD # 6 s/p Laparoscopic Appendectomy, Post operative Ileus -Leukocytosis resolved -NGT with 50 cc since 11 pm - abdomen soft and nondistended, vastly improved - urine culture negative - gastric occult negative Plan: Pain management, continue Toradol to 30 IV q 6 hours, try to reduce amount of narcotics Remove NGT and start sips of clears and ice chips Change IV Protonix to PO daily Encouraged OOB to chair and ambulation in the room Continue IV fluids 100 mls/hr Continue Lovenox and SCDs Dr. Roberts to cover this weekend Dr. Camara has seen and examined patient, agrees with above
[2016-12-26] MEDS: ENOXAPARIN 40 MG/0.4 ML SYR SQ SCH (14:18)
[2016-12-26 15:03] VITALS: BP 143/82; PULSE 78; TEMP 37; O2SAT 94
--- NOTE | 2016-12-26 15:32 | Discharge Instructions ---
Discharge Instructions Date of Service Dec 26, 2016. Admission Reason for Admission: Abdominal Pain Discharge Discharge Diagnosis / Problem: Post op Ileus Discharge Goals Goal(s): Decrease discomfort, Improve function Activity Recommendations Activity Limitations: as noted below No heavy lifting over 10 pounds for 2 weeks No strenuous activity until cleared by surgeon Walking and light activity is encouraged No submerging incisions underwater for 2 weeks (no bathing) . Instructions / Follow-Up Instructions / Follow-Up You may shower You do not need to keep incisions covered, if steri strips are still present in 3 more days you may remove them Follow-up in surgical office in 1-2 weeks, please call office at [phone] to make an appointment Current Hospital Diet Patient's current hospital diet: Clear Liquid Diet Discharge Diet Recommended Diet: Regular Diet Pending Studies Studies pending at discharge: no Medical Emergencies . Who to Call and When: Medical Emergencies: If at any time you feel your situation is an emergency, please call 911 immediately. . Non-Emergent Contact Non-Emergency issues call your: Primary Care Provider, Surgeon Call Non-Emergent contact if: you have a fever, temperature is above 101.5, your pain is not controlled, your pain is worsening, wound has increased drainage, wound has increased redness, wound has increased pain . "Provider Documentation" section prepared by Savannah Melendez. . Water Pump Servicer Recommendations Water Pump Servicer Recommendations: OK to use tylenol #3 or ultram for pain control. VTE Core Measure Inpt VTE Proph given/why not?: Enoxaparin (Lovenox)SQ, SCD's [place] Drug Monitoring Program Search Results: patient reviewed within database, no issues identified
[2016-12-26] MEDS ORDERED: TRAM-10 PO (17:37)
[2016-12-26 23:26] VITALS: BP 141/75; PULSE 81; TEMP 37.1; O2SAT 92
[2016-12-27] MEDS: MoRPHine SULFATE 2 MG/ML CARP IV PRN ×4 (04:33→16:07)
[2016-12-27] MEDS: LACTATED RINGER'S 1000ML 1,000 ML IV SCH ×2 (05:49→16:01)
[2016-12-27 08:10] VITALS: BP 135/78; PULSE 79; TEMP 36.7; O2SAT 93
[2016-12-27] MEDS: POLYETHYLENE (MIRALAX) 17 GM PACK PO SCH (09:00)
[2016-12-27] MEDS: PANTOprazole SOD 40 MG TAB PO SCH (09:44)
--- NOTE | 2016-12-27 12:27 | Surgery Progress Note ---
Surgery Progress Note Date of Service Dec 27, 2016. Subjective Status post laparoscopic appendectomy with post operative ileus. Patient hard of hearing and communicates with writing. Some bowel movements and flatus this morning. Nausea last night and some scant emesis. Feels a little better, still with pain. Objective Vital Signs: Date Time Temp Pulse Resp B/P (MAP) Pulse Ox O2 Delivery O2 Flow Rate FiO2 12/27/16 08:10 36.7 79 16 135/78 (97) 93 Room Air 12/27/16 08:00 Room Air 12/26/16 23:47 Room Air 12/26/16 23:26 37.1 81 16 141/75 (97) 92 Room Air 12/26/16 15:30 Room Air 12/26/16 15:03 37.0 78 17 143/82 (102) 94 Room Air General Appearance: WD/WN, no apparent distress Head: normocephalic, atraumatic Neck: supple, no adenopathy, thyroid normal, no JVD, no carotid bruits, trachea midline Respiratory/Chest: chest non-tender, lungs clear, normal breath sounds, no respiratory distress, no accessory muscle use Cardiovascular: regular rate, rhythm, no edema, no gallop, no JVD, no murmur Abdomen: normal bowel sounds, non distended, soft, no organomegaly, no pulsatile mass, + tenderness (RLQ) Incision(s): clean, dry, intact, no erythema, no drainage Extremities: normal range of motion, non-tender, normal inspection, no pedal edema, no calf tenderness, normal capillary refill, pelvis stable Assessment & Plan s/p lap appendectomy with post op ileus, resolving. Plan: advance diet to clear liquids keep IV TKO promote oral meds, avoid IV if possible. Alber Roberts, DO
[2016-12-27] MEDS: ENOXAPARIN 40 MG/0.4 ML SYR SQ SCH (13:42)
[2016-12-27 16:00] VITALS: BP 137/82; PULSE 77; TEMP 36.8; O2SAT 94
[2016-12-27] MEDS: OXYCODONE/ACETAMINOPHEN 5-325 TAB PO PRN (19:00)
[2016-12-27 23:33] VITALS: BP 114/73; PULSE 68; TEMP 37.3; O2SAT 95
[2016-12-28] MEDS: OXYCODONE/ACETAMINOPHEN 5-325 TAB PO PRN ×3 (00:31→22:08)
[2016-12-28] MEDS: LACTATED RINGER'S 1000ML 1,000 ML IV SCH ×2 (02:12→13:11)
[2016-12-28 07:01] LABS: HEMATOCRIT 38.3 % (42-52); MEAN CELL VOLUME 88.7 fL (80-100); MEAN CORPUSCULAR HEMOGLOBIN 29.6 pg (25-34); MEAN CORPUSCULAR HGB CONC 33.4 g/dl (32-36); MEAN PLATELET VOLUME 9.2 fL (7.4-10.4); PLATELET COUNT 269 K/uL (130-400); RED BLOOD COUNT 4.32 M/uL (4.7-6.1); WHITE BLOOD COUNT 11.76 K/uL (4.8-10.8)
[2016-12-28 07:25] LABS: CREATININE 0.69 mg/dl (0.60-1.40)
[2016-12-28 07:30] VITALS: BP 131/86; PULSE 84; TEMP 37.1; O2SAT 92
[2016-12-28] MEDS: ONDANSETRON INJ 2 MG/ML 2 ML VIAL IV PRN (08:12)
[2016-12-28] MEDS: MoRPHine SULFATE 2 MG/ML CARP IV PRN ×3 (08:13→20:19)
[2016-12-28] MEDS: PANTOprazole SOD 40 MG TAB PO SCH (10:15)
[2016-12-28] MEDS: POLYETHYLENE (MIRALAX) 17 GM PACK PO SCH (10:16)
--- NOTE | 2016-12-28 10:46 | Surgery Progress Note ---
Surgery Progress Note Date of Service Dec 28, 2016. Subjective Status post laparoscopic appendectomy with post operative ileus. Patient hard of hearing and communicates with writing. Some bowel movements and flatus yesterday, but denies flatus this AM. Still with nausea but no emesis, appears to tolerate clears. Still with pain. Objective Vital Signs: Date Time Temp Pulse Resp B/P (MAP) Pulse Ox O2 Delivery O2 Flow Rate FiO2 12/28/16 07:30 37.1 84 16 131/86 (101) 92 Room Air 12/28/16 00:30 Room Air 12/27/16 23:33 37.3 68 16 114/73 (87) 95 Room Air 12/27/16 16:40 Room Air 12/27/16 16:00 36.8 77 16 137/82 (100) 94 Room Air General Appearance: WD/WN, no apparent distress Head: normocephalic, atraumatic Neck: supple, no adenopathy, thyroid normal, no JVD, no carotid bruits, trachea midline Respiratory/Chest: chest non-tender, lungs clear, normal breath sounds, no respiratory distress, no accessory muscle use Cardiovascular: regular rate, rhythm, no edema, no gallop, no JVD, no murmur Abdomen: normal bowel sounds, non distended, soft, no organomegaly, no pulsatile mass, + tenderness (RLQ tenderness, voluntary guarding) Incision(s): clean, dry, intact, no erythema, no drainage Extremities: normal range of motion, non-tender, normal inspection, no pedal edema, no calf tenderness, normal capillary refill, pelvis stable Laboratory Results: Results Past 24 Hours Test 12/28/16 06:33 Range/Units White Blood Count 11.76 4.8-10.8 K/uL Red Blood Count 4.32 4.7-6.1 M/uL Hemoglobin 12.8 14.0-18.0 g/dL Hematocrit 38.3 42-52 % Mean Corpuscular Volume 88.7 80-100 fL Mean Corpuscular Hemoglobin 29.6 25-34 pg Mean Corpuscular Hemoglobin Concent 33.4 32-36 g/dl RDW Standard Deviation 46.3 36.4-46.3 fL RDW Coefficient of Variation 14.2 11.5-14.5 % Platelet Count 269 130-400 K/uL Mean Platelet Volume 9.2 7.4-10.4 fL Creatinine 0.69 0.60-1.40 mg/dl Est Creatinine Clear Calc Drug Dose 187.9 ml/min Estimated GFR () 145.6 Estimated GFR (Non- 125.6 Assessment & Plan s/p lap appendectomy with post op ileus, appeared to be resolving but leukocytosis this AM. Plan: advance diet to full liquids keep IV TKO promote oral meds, avoid IV if possible. Repeat WBC in AM, if continues to rise then may need CT to rule out abscess Dr. Shaw/[facility] surgery will resume care tomorrow D. Sebastian Roberts, DO
[2016-12-28] MEDS: ENOXAPARIN 40 MG/0.4 ML SYR SQ SCH ×2 (14:00→14:42)
[2016-12-28 15:17] VITALS: BP 137/81; PULSE 74; TEMP 36.8; O2SAT 94
[2016-12-28 23:18] VITALS: BP 128/81; PULSE 73; TEMP 36.9; O2SAT 94
[2016-12-29] MEDS: MoRPHine SULFATE 2 MG/ML CARP IV PRN ×2 (02:02→08:13)
[2016-12-29] MEDS: OXYCODONE/ACETAMINOPHEN 5-325 TAB PO PRN ×3 (06:23→23:34)
[2016-12-29 07:12] VITALS: BP 126/75; PULSE 67; TEMP 36.8; O2SAT 92
[2016-12-29 07:49] LABS: HEMATOCRIT 40.1 % (42-52); MEAN CELL VOLUME 90.7 fL (80-100); MEAN CORPUSCULAR HEMOGLOBIN 29.9 pg (25-34); MEAN CORPUSCULAR HGB CONC 32.9 g/dl (32-36); MEAN PLATELET VOLUME 9.1 fL (7.4-10.4); PLATELET COUNT 325 K/uL (130-400); RED BLOOD COUNT 4.42 M/uL (4.7-6.1); WHITE BLOOD COUNT 12.34 K/uL (4.8-10.8)
[2016-12-29] MEDS: POLYETHYLENE (MIRALAX) 17 GM PACK PO SCH (08:09)
[2016-12-29] MEDS: PANTOprazole SOD 40 MG TAB PO SCH (08:13)
--- NOTE | 2016-12-29 11:29 | Surgery Progress Note ---
Surgery Progress Note Date of Service Dec 29, 2016. Subjective Post OP Day: POD # 9 s/p lap appendectomy, post op ileus patient deaf, communicates via writing When asked about how he is feeling states he is not feeling good, but looks comfortable. Slight Nausea no vomiting Having diarrhea, loose, explosive stools Pain still an 8/10 more on the right side and right lower quadrant Tolerating full liquids Objective Vital Signs: Date Time Temp Pulse Resp B/P (MAP) Pulse Ox O2 Delivery O2 Flow Rate FiO2 17 07:15 Room Air 17 07:12 36.8 67 17 126/75 (92) 92 Room Air 12/29/16 00:45 Room Air 12/28/16 23:18 36.9 73 16 128/81 (97) 94 Room Air 12/28/16 15:50 Room Air 12/28/16 15:17 36.8 74 18 137/81 (99) 94 Room Air General Appearance: WD/WN, no apparent distress (sitting comfortably in bed on encounter) Head: normocephalic, atraumatic Neck: trachea midline Respiratory/Chest: no respiratory distress, no accessory muscle use Abdomen: non distended, soft, + tenderness (RLQ on mild palpation, slight guarding, no peritonitis, or rigidity) Incision(s): clean, dry, intact, no erythema, no drainage Laboratory Results: Results Past 24 Hours Test 17 07:26 Range/Units White Blood Count 12.34 4.8-10.8 K/uL Red Blood Count 4.42 4.7-6.1 M/uL Hemoglobin 13.2 14.0-18.0 g/dL Hematocrit 40.1 42-52 % Mean Corpuscular Volume 90.7 80-100 fL Mean Corpuscular Hemoglobin 29.9 25-34 pg Mean Corpuscular Hemoglobin Concent 32.9 32-36 g/dl RDW Standard Deviation 48.3 36.4-46.3 fL RDW Coefficient of Variation 14.6 11.5-14.5 % Platelet Count 325 130-400 K/uL Mean Platelet Volume 9.1 7.4-10.4 fL Assessment & Plan POD # 9 s/p Laparoscopic Appendectomy, Post operative Ileus - slight increase in Leukocytosis 12.34K today (11.76K yesterday) - has been afebrile, vitals stable - abdomen soft and nondistended, RLQ tenderness on palpation, still rating pain 8/ - urine culture negative - gastric occult negative Plan: Pain management, continue Toradol to 30 IV q 6 hours, try to reduce amount of narcotics, advised nurse and patient to take only Oral pain medication and not IV morphine Continue PO Protonix daily Encouraged OOB to chair and ambulation in the room Will test for C. diff given diarrhea and leukocytosis Advance diet to low fiber diet Ct scan of abd/pelvis with IV and oral contrast, rule out post op abscess given increasing leukocytosis and continued pain Continue Lovenox and SCDs Will wait to restart IV antibiotics based on CT scan results If CT scan unremarkable, hopeful discharge tomorrow Dr. Nye has seen and examined patient, agrees with above
[2016-12-29] MEDS ORDERED: TRAMADOL HCL 50 MG TAB PO PRN (11:30)
[2016-12-29] MEDS ORDERED: OPTIRAY 320 IV PRN (12:30)
[2016-12-29] MEDS: ENOXAPARIN 40 MG/0.4 ML SYR SQ SCH (13:40)
[2016-12-29 14:50] VITALS: BP 143/83; PULSE 83; TEMP 36.7; O2SAT 93
--- NOTE | 2016-12-29 16:01 | DIAGNOSTIC IMAGING REPORT ---
ADDENDUM Addendum: Upon further review, note is made of a tiny rim-enhancing central pelvic fluid collection that measures 2.5 x 1.1 cm. This may reflect a tiny developing abscess. This is not amenable to percutaneous drainage given its small size and central location within the pelvis. Electronically signed by: Ernesto Rdz M.D. 12/30/2016 8:47 AM Dictated Date/Time: 12/30/2016 8:[address] OF THE ABDOMEN AND PELVIS WITH CONTRAST CLINICAL HISTORY: POD # 9 laparoscopic appendectomy, increasing leukocytosis, continuous abdominal pain. COMPARISON STUDY: CT of the abdomen and pelvis December 21, 2016. TECHNIQUE: Following IV administration of 94 mL of Optiray-[id number], axial images of the abdomen and pelvis were obtained from the lung bases to the proximal femurs. Images were reviewed in the axial, sagittal, and coronal planes. IV contrast was administered without complication. A dose lowering technique was utilized adhering to the principles of ALARA. CT DOSE: 1193.33 mGycm FINDINGS: Visualized portions of the lower chest demonstrate bilateral lower lobe opacities which favor atelectasis. There are multiple small indeterminate pulmonary nodules within the lungs. A small amount of pneumoperitoneum is noted. This has decreased since CT of December 21, 2016. There is gas within the left inguinal canal which has decreased. Anasarca is noted. A small amount of abdominal and pelvic ascites is noted. There is no fluid collection to suggest an abscess. The liver, spleen, adrenal glands, kidneys and pancreas are normal. There is no biliary or pancreatic ductal dilatation. Small bowel is fluid-filled and moderately dilated. The terminal ileum is decompressed. However, the colon is not decompressed. A possible transition point within the terminal ileum shown on image 389 of 546 is noted. Major vasculature of the abdomen and pelvis is patent. IMPRESSION: 1. Moderate small bowel dilatation with possible transition point within the distal ileum and decompressed terminal ileum. The colon is not decompressed and therefore a postoperative ileus is favored. However, a small bowel obstruction would be difficult to exclude and could appear similar. 2. Small amount of ascites and generalized anasarca with mesenteric infiltration. No rim-enhancing fluid collection to suggest abscess. 3. Small amount of pneumoperitoneum which has decreased since exam of December 21, 2016. This is slightly more than expected 9 days following appendectomy but is probably postsurgical. Electronically signed by: Ernesto Rdz M.D. 12/29/2016 4:00 PM Dictated Date/Time: 12/29/2016 3:47 PM
[2016-12-29] MEDS: KETOROLAC TROMETHAMINE 30 MG/ML VIAL IV PRN (19:06)
[2016-12-29 23:02] VITALS: BP 140/88; PULSE 79; TEMP 36.8; O2SAT 97
[2016-12-30 06:59] LABS: HEMATOCRIT 41.3 % (42-52); MEAN CELL VOLUME 90.2 fL (80-100); MEAN CORPUSCULAR HEMOGLOBIN 29.9 pg (25-34); MEAN CORPUSCULAR HGB CONC 33.2 g/dl (32-36); MEAN PLATELET VOLUME 9.2 fL (7.4-10.4); PLATELET COUNT 346 K/uL (130-400); RED BLOOD COUNT 4.58 M/uL (4.7-6.1); WHITE BLOOD COUNT 15.09 K/uL (4.8-10.8)
[2016-12-30 07:01] VITALS: BP 117/75; PULSE 86; TEMP 37.3; O2SAT 94
[2016-12-30] MEDS: OXYCODONE/ACETAMINOPHEN 5-325 TAB PO PRN ×3 (07:46→21:08)
[2016-12-30] MEDS: PANTOprazole SOD 40 MG TAB PO SCH (07:46)
--- NOTE | 2016-12-30 09:11 | Surgery Progress Note ---
Surgery Progress Note Date of Service Dec 30, 2016. Subjective Post OP Day: POD # 10 s/p lap appy, post op ileus Communication via writing Patient states he is still not feeling good, pain still a 7-8/10, controlled with oral pain pills however, has not received dose of IV Morphine since yesterday morning Still having some loose stools Slight nausea, no vomiting tolerated regular diet Objective Vital Signs: Date Time Temp Pulse Resp B/P (MAP) Pulse Ox O2 Delivery O2 Flow Rate FiO2 12/30/16 07:01 37.3 86 17 117/75 (89) 94 Room Air 12/29/16 23:40 Room Air 12/29/16 23:02 36.8 79 18 140/88 (105) 97 Room Air 12/29/16 16:34 Room Air 12/29/16 14:50 36.7 83 18 143/83 (103) 93 Room Air General Appearance: WD/WN, no apparent distress Head: normocephalic, atraumatic Neck: trachea midline Respiratory/Chest: no respiratory distress, no accessory muscle use Abdomen: non distended, soft, + guarding (voluntary in RLQ), + tenderness (RLQ and LUQ, improving, no rigidity, rebound, or peritonitis) Incision(s): clean, dry, intact, no drainage, ecchymosis (of the abdominal wall at site of Lovenox injection) Laboratory Results: Results Past 24 Hours Test 12/30/16 06:26 Range/Units White Blood Count 15.09 4.8-10.8 K/uL Red Blood Count 4.58 4.7-6.1 M/uL Hemoglobin 13.7 14.0-18.0 g/dL Hematocrit 41.3 42-52 % Mean Corpuscular Volume 90.2 80-100 fL Mean Corpuscular Hemoglobin 29.9 25-34 pg Mean Corpuscular Hemoglobin Concent 33.2 32-36 g/dl RDW Standard Deviation 47.8 36.4-46.3 fL RDW Coefficient of Variation 14.5 11.5-14.5 % Platelet Count 346 130-400 K/uL Mean Platelet Volume 9.2 7.4-10.4 fL Microbiology Results 12/29/16 C.difficile Toxin B Gene (PCR) - Final, Complete No C. difficile toxin B gene detected Diagnostic Interpretation: ADDENDUM Addendum: Upon further review, note is made of a tiny rim-enhancing central pelvic fluid collection that measures 2.5 x 1.1 cm. This may reflect a tiny developing abscess. This is not amenable to percutaneous drainage given its small size and central location within the pelvis. Electronically signed by: Ernesto Rdz M.D. 12/30/2016 8:47 AM Dictated Date/Time: 12/30/2016 8:[address] OF THE ABDOMEN AND PELVIS WITH CONTRAST CLINICAL HISTORY: POD # 9 laparoscopic appendectomy, increasing leukocytosis, continuous abdominal pain. COMPARISON STUDY: CT of the abdomen and pelvis December 21, 2016. TECHNIQUE: Following IV administration of 94 mL of Optiray-320, axial images of the abdomen and pelvis were obtained from the lung bases to the proximal femurs. Images were reviewed in the axial, sagittal, and coronal planes. IV contrast was administered without complication. A dose lowering technique was utilized adhering to the principles of ALARA. CT DOSE: 1193.33 mGycm FINDINGS: Visualized portions of the lower chest demonstrate bilateral lower lobe opacities which favor atelectasis. There are multiple small indeterminate pulmonary nodules within the lungs. A small amount of pneumoperitoneum is noted. This has decreased since CT of December 21, 2016. There is gas within the left inguinal canal which has decreased. Anasarca is noted. A small amount of abdominal and pelvic ascites is noted. There is no fluid collection to suggest an abscess. The liver, spleen, adrenal glands, kidneys and pancreas are normal. There is no biliary or pancreatic ductal dilatation. Small bowel is fluid-filled and moderately dilated. The terminal ileum is decompressed. However, the colon is not decompressed. A possible transition point within the terminal ileum shown on image 389 of 546 is noted. Major vasculature of the abdomen and pelvis is patent. IMPRESSION: 1. Moderate small bowel dilatation with possible transition point within the distal ileum and decompressed terminal ileum. The colon is not decompressed and therefore a postoperative ileus is favored. However, a small bowel obstruction would be difficult to exclude and could appear similar. 2. Small amount of ascites and generalized anasarca with mesenteric infiltration. No rim-enhancing fluid collection to suggest abscess. 3. Small amount of pneumoperitoneum which has decreased since exam of December 21, 2016. This is slightly more than expected 9 days following appendectomy but is probably postsurgical. Assessment & Plan POD # 10 s/p Laparoscopic Appendectomy, Post operative Ileus - slight increase in Leukocytosis 15.09K today (12.34K yesterday) - has been afebrile, vitals stable - abdomen soft and nondistended, RLQ tenderness on palpation, still rating pain 8/10 - urine culture negative - gastric occult negative - c.diff negative - Repeat CT scan with oral and IV contrast showing no evidence of intra- abdominal abscess post op. There is some small bowel dilatation and some free air most likely post operative. Addendum to CT scan just reviewed: tiny rim-enhancing central pelvic fluid collection that measures 2.5 x 1.1 cm. This may reflect a tiny developing abscess. This is not amenable to percutaneous drainage given its small size and central location within the pelvis. Plan: Pain management, continue Toradol to 30 IV q 6 hours, try to reduce amount of narcotics, advised nurse and patient to take only Oral pain medication and not IV morphine Will start on IV Zosyn 3.375 gm IV q 6 hours to cover for possible intra- abdominal infection Repeat labs in am to trend WBC Continue PO Protonix daily Encouraged OOB to chair and ambulation in the room Continue low fiber diet Continue Lovenox and SCDs Dr. Shirley has seen and examined patient, agrees with above
[2016-12-30] MEDS ORDERED: PIPERACILL/TAZOBAC IV 3.375 GM in DEXTROSE 5% 100ML 100 ML IV SCH (09:15)
[2016-12-30] MEDS ORDERED: PIPERACILL/TAZOBAC IV 3.375 GM in DEXTROSE 5% 100ML IV ONE (09:30)
[2016-12-30] MEDS ORDERED: PIPERACILL/TAZOBAC CONSULT ACTIVE PRN (09:30)
[2016-12-30] MEDS: ENOXAPARIN 40 MG/0.4 ML SYR SQ SCH (13:22)
[2016-12-30 15:50] VITALS: BP 120/73; PULSE 75; TEMP 36.8; O2SAT 93
[2016-12-30] MEDS: PIPERACILL/TAZOBAC IV 4.5 GM in DEXTROSE 5% 100ML 100 ML IV SCH ×2 (16:20→23:53)
[2016-12-30] MEDS: MoRPHine SULFATE 2 MG/ML CARP IV PRN ×2 (16:21→23:57)
[2016-12-30 23:50] VITALS: BP 114/75; PULSE 60; TEMP 36.7; O2SAT 95
[2016-12-31] MEDS ORDERED: AMOX1TAB42 PO (00:31)
[2016-12-31 07:06] VITALS: BP 130/77; PULSE 76; TEMP 36.8; O2SAT 94
[2016-12-31 07:08] LABS: HEMATOCRIT 38.1 % (42-52); MEAN CELL VOLUME 89.9 fL (80-100); MEAN CORPUSCULAR HEMOGLOBIN 29.7 pg (25-34); MEAN CORPUSCULAR HGB CONC 33.1 g/dl (32-36); MEAN PLATELET VOLUME 9.1 fL (7.4-10.4); PLATELET COUNT 338 K/uL (130-400); RED BLOOD COUNT 4.24 M/uL (4.7-6.1)
[2016-12-31] MEDS: PANTOprazole SOD 40 MG TAB PO SCH (07:34)
[2016-12-31] MEDS: OXYCODONE/ACETAMINOPHEN 5-325 TAB PO PRN (07:34)
[2016-12-31] MEDS: PIPERACILL/TAZOBAC IV 4.5 GM in DEXTROSE 5% 100ML 100 ML IV SCH (07:34)
[2016-12-31 07:41] LABS: CREATININE 0.7 mg/dl (0.60-1.40)
--- NOTE | 2016-12-31 10:58 | Surgery Progress Note ---
Surgery Progress Note Date of Service Dec 31, 2016. Subjective Still complaining of pain - sharp, crampy, diffuse, worse in lower abdomen. However, was resting comfortably. No nausea or vomiting. Eating OK. Bowels are functioning. Objective Vital Signs: Date Time Temp Pulse Resp B/P (MAP) Pulse Ox O2 Delivery O2 Flow Rate FiO2 12/31/16 07:35 Room Air 12/31/16 07:06 36.8 76 17 130/77 (94) 94 Room Air 12/31/16 00:05 Room Air 12/30/16 23:50 36.7 60 18 114/75 (88) 95 Room Air 12/30/16 15:50 36.8 75 16 120/73 (89) 93 Room Air 12/30/16 15:45 Room Air General Appearance: WD/WN, no apparent distress Respiratory/Chest: no respiratory distress Cardiovascular: regular rate, rhythm, no murmur Abdomen: normal bowel sounds, non distended, soft, + tenderness Incision(s): clean, dry, intact Laboratory Results: Results Past 24 Hours Test 12/31/16 06:22 Range/Units White Blood Count 10.80 4.8-10.8 K/uL Red Blood Count 4.24 4.7-6.1 M/uL Hemoglobin 12.6 14.0-18.0 g/dL Hematocrit 38.1 42-52 % Mean Corpuscular Volume 89.9 80-100 fL Mean Corpuscular Hemoglobin 29.7 25-34 pg Mean Corpuscular Hemoglobin Concent 33.1 32-36 g/dl RDW Standard Deviation 48.1 36.4-46.3 fL RDW Coefficient of Variation 14.5 11.5-14.5 % Platelet Count 338 130-400 K/uL Mean Platelet Volume 9.1 7.4-10.4 fL Creatinine 0.70 0.60-1.40 mg/dl Est Creatinine Clear Calc Drug Dose 185.2 ml/min Estimated GFR () 144.7 Estimated GFR (Non- 124.9 Assessment & Plan s/p lap appy with postop ileus (narcotic related) and now with small 2 cm abscess in pelvis. Responded to IV antibiotics with normal WBC count today. Ileus has resolved. His pain may linger for a while longer - unclear why he still has such a high narcotic requirement. OK to discharge today on oral antibiotics and oral pain medications. Pt seen and examined. Still with narcotic induced ileus although guard reports bowel movement. He is resting comfortably. NG in place. Abdomen less distended. Will decrease narcotics. Likely d/c ng tomorrow. Encourage ambulation.
[2016-12-31] MEDS ORDERED: CDN15 PO (11:01)
[2016-12-31] MEDS ORDERED: AMOX875T PO (11:01)
[2016-12-31 11:31] VITALS: BP 130/77; PULSE 76; TEMP 36.8; O2SAT 94
--- NOTE | 2017-01-02 12:12 | Discharge Summary ---
Discharge Summary Dates Admission Date / Time: Dec 23, 2016 at 08:40 Discharge Date: Dec 31, 2016 Dispostion / Condition [facility]position: [facility] Condition at Discharge: Fair Principal Diagnosis (1) Postoperative ileus (2) S/P laparoscopic appendectomy (3) Abdominal pain Problem List (1) Abdominal pain (2) Postoperative ileus (3) S/P laparoscopic appendectomy Consultations / Procedures Consultations: None Procedures: None Medication Reconciliation New Medications: Amoxicillin & Pot Clavulanate (Augmentin 875-125 mg) 1 Tab Tab 875 MG PO BID, #14 TAB Codeine Sulfate (Codeine) 15 Mg Tab 15 MG PO Q4 PRN for Pain, #30 TAB Tramadol (Ultram) 50 Mg Tab 50 MG PO Q4H PRN for Pain, #30 TAB Continued Medications: Acetaminophen (Tylenol) 500 Mg Tab 1000 MG PO TID, TAB Admission HPI Per the Admitting provider: 31 yr old man s/p lap appy early Sat am. Intraoperatively, it was difficult to access abdomen and a significant amount of air had been insufflated into the subcutaneous space. Once abdomen was entered, the appendectomy was uncomplicated. [facility] but presents today with diffuse abdominal pain, worse if he lays down, feels it difficult to take a deep breath, nauseated. No vomiting. Did have a bowel movement. Pain is 10/10 in severity, radiates up to his diaphragm, right shoulder, arm. [place] chilled. Unable to get any sleep or rest. 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 He was started on IV antibiotics, IV fluids, Regular diet, IV pain management in form of Morphine, PO Percocet, and IV Toradol as needed for pain, Lovenox daily, activity as tolerated, and repeat in labs. Hospital day #1 and POD # 2 patients WBC decreased to 18k. He was tolerated regular diet without any issues. IV antibiotics were continued. POD # 3/HD # 2, abdominal pain persisted with some vomiting and resolving leukocytosis (15.25) Diet was decreased to Full liquids given vomiting and mild ileus. NGT was placed given nausea and vomiting. POD #4/HD # 3, leukocytosis resolved, still had no bowel function, small emesis, and slightly distended. NGT was continued and IV Morphine was decreased and limited narcotics. POD #5/HD # 4 , patient had a bowel movement with less distention. NGT with dark brown output, gastric occult collected and negative, IV Protonix was started and again IV Morphine dosage and frequency was decreased. POD # 6/HD # 5, patient had positive bowel function, less distention, NGT was removed and started on sips of clears and ice chips. POD # 7/HD # 6, diet was advanced to clear liquids, IV fluids TKO, slight nausea, recommended oral medications and avoid IV narcotics. POD # 8/HD # 7, slight nausea, tolerating clear liquids. Diet advanced to full liquids. Slight leukocytosis of 11.76k. POD # 9/HD # 8, patient had diarrhea and loose explosive stools. Pain persistent at 8/10, tolerating full liquids. Plan was to repeat CT scan with PO and IV contrast, test stool for c.diff, and advance diet to low fiber diet. POD # 10/HD #9 WBC 15.09. Patient was tolerating regular diet, still having nausea and having bowel movements. C. diff was negative. CT scan showed a tiny rim enhancing central pelvic fluid collection measuring 2.5 x 1.1 cm, may reflect tiny developing abscess, not amenable to drainage given size. Patient was started on IV Zosyn. POD # 11/HD # 10 patient was tolerating regular diet, pain still present but controlled, regular bowel function, and leukocytosis resolved on IV antibiotics. He was discharged on POD # 11/HD # 10 in stable condition back to [facility] facility with PO tramadol and Codeine and PO Antibiotics. (2) Postoperative ileus please refer to above (3) Abdominal pain please refer to above Discharge Instructions as given to patient Copies To Primary Care Provider: Hussein Barboza.
[2017-01-18] MEDS ORDERED: IBUP-1459 PO (13:37)
== END 2016-12-31 13:20 | DRG 388 ==
LOC: C.EDB 10:11 → C.MSN 11:38 → ENRESERV 12:00 → OBSVTOIN 12-23 08:40
PROVIDERS: ADMIT Surgery; ATTEND Surgery
DX: K56.7 Ileus, unspecified (principal); K65.1 Peritoneal abscess; H91.93 Unspecified hearing loss, bilateral; Z98.890 Other specified postprocedural states; D72.829 Elevated white blood cell count, unspecified; T40.605A Adverse effect of unspecified narcotics, initial encounter

== ENCOUNTER 2017-01-02 23:00 | Emergency (ER) | payer OTHER ==
[~2017-01-02] VITALS: Ht 172.7 cm; Wt 109.9 kg
[~2017-01-02 23:00] MED LIST: AMOX1TAB42 PO; AMOX875T PO; CDN15 PO; TRAM-10 PO; TYLOTC500 PO
[2017-01-02 23:07] VITALS: TEMP 36.8; Ht 172.7 cm; Wt 109.9 kg
[2017-01-02] MEDS ORDERED: ONDANSETRON INJ 2 MG/ML 2 ML VIAL IV STA (23:15)
[2017-01-02] MEDS ORDERED: SODIUM CHLORIDE 0.9% 1000ML 1,000 ML IV STA (23:15)
[2017-01-02] MEDS ORDERED: OPTIRAY 320 IV PRN (23:30)
[2017-01-02 23:47] LABS: BASO % 0.3 %; BASO ABS # 0.03 K/uL (0-0.2); COMPLETE YES; EOS % 1.6 %; HEMATOCRIT 43.5 % (42-52); IG% 0.8 %; LYMPH % 34.2 %; LYMPH ABS # 3.64 K/uL (1.2-3.4); MEAN CELL VOLUME 90.2 fL (80-100); MEAN CORPUSCULAR HEMOGLOBIN 29.5 pg (25-34); MEAN CORPUSCULAR HGB CONC 32.6 g/dl (32-36); MEAN PLATELET VOLUME 8.9 fL (7.4-10.4); MONO % 7.9 %; NEUT % 55.2 %; PLATELET COUNT 472 K/uL (130-400); RED BLOOD COUNT 4.82 M/uL (4.7-6.1); WHITE BLOOD COUNT 10.63 K/uL (4.8-10.8)
[2017-01-03 00:09] LABS: URINE APPEARANCE CLEAR (CLEAR); URINE BILIRUBIN NEG (NEG); URINE COLOR YELLOW; URINE EPITHELIAL CELL AUTO 0-5 /lpf (0-5); URINE NITRITE NEG (NEG); URINE PH 6.5 (4.5-7.5); URINE SPECIFIC GRAVITY 1.011 (1.000-1.030); UROBILINOGEN NEG (NEG); ZZUR CULT IF INDIC CLEAN CATCH NO
[2017-01-03 00:13] LABS: MANUAL MICROSCOPIC REQUIRED? NO; REVIEW REQ? NO
[2017-01-03 00:25] LABS: ALKALINE PHOSPHATASE 95 U/L (45-117); ALT/SGPT 42 U/L (12-78); AST/SGOT 28 U/L (15-37); BLOOD UREA NITROGEN 6 mg/dl (7-18); BUN/CREATININE RATIO 7.9 (10-20); CALCIUM 9.1 mg/dl (8.5-10.1); CARBON DIOXIDE 30 mmol/L (21-32); CHLORIDE 104 mmol/L (98-107); CREATININE 0.81 mg/dl (0.60-1.40); GLUCOSE 89 mg/dl (70-99); POTASSIUM 3.9 mmol/L (3.5-5.1); SODIUM 140 mmol/L (136-145)
[2017-01-03] MEDS ORDERED: TRAM-10 PO (00:30)
[2017-01-03] MEDS ORDERED: CDN15 PO (00:32)
[2017-01-03] MEDS ORDERED: KETOROLAC TROMETHAMINE 30 MG/ML VIAL IV STA (03:07)
--- NOTE | 2017-01-03 03:40 | EMERGENCY ROOM VISIT NOTE ---
History Report prepared by Opal: Aidan Horner Under the Supervision of: Dr. Kvng Peter D.O. First contact with patient: 23:10 Chief Complaint: ABDOMINAL PAIN Stated Complaint: ABD PAIN History of Present Illness The patient is a 31 year old male who presents to the Emergency Room with complaints of intermittent right-sided abdominal pain beginning last evening. He currently rates his discomfort an 8/10 in severity. The patient states he went to bed with his discomfort, and when he woke, his discomfort was still there. He reports it went away, and then it returned around 3.5 hours ago. The patient notes he has a history of an appendectomy 2 weeks ago, and his pain feels similar to before his procedure. He states last night he thought he was going to vomit, but he did not. The patient reports he is not sleeping well, and it hurts to breath in. He denies nausea, diarrhea, and fever. Source of History: patient Onset: last night Position: abdomen (right-sided) Symptom Intensity: 8/10 Timing: intermittent Modifying Factors (Worsening): breathing Associated Symptoms: No fevers, No nausea, No vomiting, No diarrhea Review of Systems See HPI for pertinent positives & negatives. A total of 10 systems reviewed and were otherwise negative. Past Medical & Surgical Medical Problems: (1) Abdominal pain (2) Deaf (3) Postoperative ileus Surgical Problems: (1) S/P laparoscopic appendectomy Family History Patient reports no known family medical history. Social History Smoking Status: Current Every Day Smoker Marital Status: single Housing Status: other Occupation Status: other Current/Historical Medications Scheduled Acetaminophen (Tylenol), 1,000 MG PO TID Amoxicillin & Pot Clavulanate (Amoxicillin/Clavulanate P), 1 TAB PO BID Scheduled PRN Codeine Sulfate (Codeine), 15 MG PO Q4 PRN for Pain Tramadol (Ultram), 50 MG PO Q4H PRN for Pain Allergies Coded Allergies: NO KNOWN DRUG ALLERGIES (Verified Allergy, Unknown, none, 01/03/17) Physical Exam Vital Signs Date Time Temp Pulse Resp B/P (MAP) Pulse Ox O2 Delivery O2 Flow Rate FiO2 01/03/17 03:42 71 18 142/80 99 Room Air 01/03/17 01:00 78 19 141/72 97 Room Air 01/02/17 23:07 36.8 73 18 171/104 97 Room Air Physical Exam CONSTITUTIONAL/VITAL SIGNS: Reviewed / noted above. GENERAL: Non-toxic in appearance. INTEGUMENTARY: Warm, dry, and [place]. HEAD: Normocephalic. EYES: without scleral icterus or trauma. ENT/OROPHARYNX: clear and moist. LYMPHADENOPATHY/NECK: Is supple without lymphadenopathy or meningismus. RESPIRATORY: Lungs clear and equal. CARDIOVASCULAR: Regular rate and rhythm. GI/ABDOMEN: Soft and tender to palpation the right side with an inconsistent exam noted during distraction. No organomegaly or pulsatile mass. No rebound or guarding. Normal bowel sounds. Post-surgical wounds are healing without signs of infection. EXTREMITIES: Warm and well perfused. BACK: No CVA tenderness. NEUROLOGICAL: Intact without focal deficits. PSYCHIATRIC: normal affect. MUSCULOSKELETAL: Normally developed with good muscle tone. Medical Decision & Procedures ER Provider Diagnostic Interpretation: Radiology results as stated below per my review and radiologist interpretation: One view chest x-ray: no pneumothorax, no pneumonia, no acute disease. CT ABDOMEN & PELVIS: Compared with 12/29/16 No obstructive uropathy. Normal renal cortical perfusion. Evidence of appendectomy. No free air, free fluid, or abscess. Mild soft tissue stranding at the right abdominal subcutaneous wall and umbilicus may be due to recent procedure. Distended small bowel loops without obstruction. Oral contrast reaches the cecum. Moderate stool in the ascending and transverse colon. Mild thickening of the descending and rectosigmoid colon may be due to underdistention, cannot exclude a mild colitis. Scattered colonic tics. Distended gallbladder. No CT evidence of pancreatitis. Mild bibasilar lung atelectasis. Radiologist: Estee Aguilar MD Study ready at 0227 and initial results transmitted at 9330. Laboratory Results 01/02/17 23:33 Red Blood Count 4.82, Mean Corpuscular Volume 90.2, Mean Corpuscular Hemoglobin 29.5, Mean Corpuscular Hemoglobin Concent 32.6, Mean Platelet Volume 8.9, Neutrophils (%) (Auto) 55.2, Lymphocytes (%) (Auto) 34.2, Monocytes (%) (Auto) 7.9, Eosinophils (%) (Auto) 1.6, Basophils (%) (Auto) 0.3, Neutrophils # (Auto) 5.87, Lymphocytes # (Auto) 3.64, Monocytes # (Auto) 0.84, Eosinophils # (Auto) 0.17, Basophils # (Auto) 0.03 01/02/17 23:33 Test 01/02/17 23:33 01/02/17 23:51 White Blood Count 10.63 K/uL (4.8-10.8) Red Blood Count 4.82 M/uL (4.7-6.1) Hemoglobin 14.2 g/dL (14.0-18.0) Hematocrit 43.5 % (42-52) Mean Corpuscular Volume 90.2 fL (80-100) Mean Corpuscular Hemoglobin 29.5 pg (25-34) Mean Corpuscular Hemoglobin Concent 32.6 g/dl (32-36) Platelet Count 472 K/uL (130-400) Mean Platelet Volume 8.9 fL (7.4-10.4) Neutrophils (%) (Auto) 55.2 % Lymphocytes (%) (Auto) 34.2 % Monocytes (%) (Auto) 7.9 % Eosinophils (%) (Auto) 1.6 % Basophils (%) (Auto) 0.3 % Neutrophils # (Auto) 5.87 K/uL (1.4-6.5) Lymphocytes # (Auto) 3.64 K/uL (1.2-3.4) Monocytes # (Auto) 0.84 K/uL (0.11-0.59) Eosinophils # (Auto) 0.17 K/uL (0-0.5) Basophils # (Auto) 0.03 K/uL (0-0.2) RDW Standard Deviation 48.1 fL (36.4-46.3) RDW Coefficient of Variation 14.5 % (11.5-14.5) Immature Granulocyte % (Auto) 0.8 % Immature Granulocyte # (Auto) 0.08 K/uL (0.00-0.02) Anion Gap 6.0 mmol/L (3-11) Est Creatinine Clear Calc Drug Dose 157.4 ml/min Estimated GFR () 136.3 Estimated GFR (Non- 117.6 BUN/Creatinine Ratio 7.9 (10-20) Calcium Level 9.1 mg/dl (8.5-10.1) Total Bilirubin 0.5 mg/dl (0.2-1) Direct Bilirubin mg/dl (0-0.2) Aspartate Amino Transf (AST/SGOT) 28 U/L (15-37) Alanine Aminotransferase (ALT/SGPT) 42 U/L (12-78) Alkaline Phosphatase 95 U/L (45-117) Total Protein 8.0 gm/dl (6.4-8.2) Albumin 3.5 gm/dl (3.4-5.0) Lipase 104 U/L (73-393) Chemistry Specimen Hemolysis Urine Color YELLOW Urine Appearance CLEAR (CLEAR) Urine pH 6.5 (4.5-7.5) Urine Specific [place] 1.011 (1.000-1.030) Urine Protein NEG (NEG) Urine Glucose (UA) NEG (NEG) Urine Ketones NEG (NEG) Urine Occult Blood NEG (NEG) Urine Nitrite NEG (NEG) Urine Bilirubin NEG (NEG) Urine Urobilinogen NEG (NEG) Urine Leukocyte Esterase TRACE (NEG) Urine WBC (Auto) 5-10 /hpf (0-5) Urine RBC (Auto) 0-4 /hpf (0-4) Urine Hyaline Casts (Auto) 0 /lpf (0-5) Urine Epithelial Cells (Auto) 0-5 /lpf (0-5) Urine Bacteria (Auto) NEG (NEG) Laboratory results as stated above per my review. Medications Administered Medications (Trade) Dose Ordered Sig/Chau Route Start Time Stop Time Status Last Admin Dose Admin Sodium Chloride 1,000 ml @ 999 mls/hr Q1H1M STAT IV 01/02/17 23:15 01/03/17 00:15 DC 01/02/17 23:29 999 MLS/HR Ondansetron HCl (Zofran Inj) 4 mg NOW STAT IV 01/02/17 23:15 01/02/17 23:18 DC 01/02/17 23:28 4 MG Ketorolac Tromethamine (Toradol Inj) 30 mg NOW STAT IV 01/03/17 03:07 01/03/17 03:08 DC 01/03/17 03:25 30 MG ED Course 2315: Ordered Ondansetron HCl 4mg IV, Sodium Chloride 1000 ml @ 999 mls/hr IV 2320: Previous medical records were reviewed. The patient was evaluated in room A03. A complete history and physical examination was performed. 0306: The nurse informed me the patient's symptoms are still present. 0307: Ordered Toradol Inj 30mg IV 0343: On reevaluation, the patient is feeling better. I discussed the results and findings with the patient. He verbalized agreement of the treatment plan. The patient was discharged. Medical Decision Differential considered: pancreatitis, hepatitis, or acute cholecystitis, AAA, UTI, pyelonephritis, kidney stones, appendicitis, diverticulitis, shingles, bowel obstruction mesenteric ischemia, intussusception, hernia, testicular torsion. Blood pressure Screening: Patient was found to have an elevated blood pressure and was referred to their primary doctor for recheck and further treatment. Medication Reconciliation: I attest that I have personally reviewed the patient' s current medication list. This is a 31-year-old male who presents to the ED with a chief complaint of abdominal pain. The patient had appendectomy earlier this month. He was admitted between the on the for postsurgical infection. The patient states that he was doing fine but developed pain last night and then seemed better today but the pain came back around 8 PM tonight. He came in for evaluation. His initial blood pressure was elevated. His physical exam revealed some tenderness on the right although with distraction his pain was inconsistent. His CBC is normal, urine did not show infection, chest x-ray was negative for acute disease, complete metabolic panel was unremarkable, CT scan of the abdomen and pelvis reveals some mild soft tissue stranding at the right abdominal subcutaneous wall and umbilicus that may be due to recent procedure. There is no clinical findings on physical exam to suggest cellulitis in that region. There is some mild thickening of the descending and rectosigmoid colon that may be due to under distention or and cannot exclude mild colitis. There is no tenderness on exam in that area. No other abnormal findings were noted. The patient was told results the test. The patient is felt to be stable for discharge. He was given IV Toradol, IV fluids and IV Zofran for his symptoms. Impression Primary Impression: Abdominal pain Scribe Attestation The scribe's documentation has been prepared under my direction and personally reviewed by me in its entirety. I confirm that the note above accurately reflects all work, treatment, procedures, and medical decision making performed by me. Departure Information Dispostion Home / Self-Care Referrals [facility] (PCP) Forms Call Back Authorization, HOME CARE DOCUMENTATION FORM, IMPORTANT VISIT INFORMATION Patient Instructions Abdominal Pain, My [facility] Additional Instructions Follow-up with your doctor for further care and evaluation in 1-2 days. Return to the emergency department for worsening or new symptoms or any concerns. You have been examined and treated today on an emergency basis only. This is not a substitute for, or an effort to provide, complete comprehensive medical care. It is impossible to recognize and treat all injuries or illnesses in a single emergency department visit. It is therefore important that you follow up closely with your doctor. Call as soon as possible for an appointment.
[2017-01-03 03:42] VITALS: BP 142/80; PULSE 71; O2SAT 99
--- NOTE | 2017-01-03 06:50 | DIAGNOSTIC IMAGING REPORT ---
ABDOMEN AND PELVIS CT WITH IV AND ORAL CONTRAST CT DOSE: 1173.95 mGy.cm HISTORY: Right-sided abdominal pain. TECHNIQUE: Multiaxial CT images of the abdomen and pelvis were performed following the use of intravenous and oral contrast. A dose lowering technique was utilized adhering to the principles of ALARA. COMPARISON STUDY: Abdomen and pelvis CT 12/29/2016. FINDINGS: Right basilar linear densities consistent with subsegmental atelectasis. A few punctate foci of pneumoperitoneum have improved. This is consistent with resolving postoperative change. The liver, spleen, gallbladder, adrenal glands, and pancreas are unremarkable. The kidneys enhance normally. No hydronephrosis. Prior appendectomy. Normal bladder. Mildly distended contrast-filled loops of small bowel have improved. Contrast reaches the cecum. Therefore, there is no evidence for bowel obstruction. No retroperitoneal lymphadenopathy. Mild fat stranding and small focal areas of phlegmon/resolving abscesses within the deep pelvis inferior to the sigmoid colon also slightly improved. This is best seen on image 82. Periumbilical fat stranding has slightly improved. IMPRESSION: 1. Overall, improvement in the expected postoperative changes as described above including improvement in the postoperative ileus and small areas of phlegmon/resolving abscesses within the deep pelvis. 2. Prior appendectomy. 3. No evidence for bowel obstruction. Electronically signed by: Arnaldo Trejo M.D. 01/03/2017 6:49 AM Dictated Date/Time: 01/03/2017 6:42 AM
--- NOTE | 2017-01-03 07:16 | DIAGNOSTIC IMAGING REPORT ---
CHEST ONE VIEW PORTABLE HISTORY: Generalized abdominal pain. COMPARISON: None. FINDINGS: The left lung is clear. A right midlung zone linear density. The heart is normal in size. No pleural effusions. No pneumothorax. IMPRESSION: Right midlung zone linear density favors atelectasis. Otherwise, the lungs are clear. Electronically signed by: Arnaldo Trejo M.D. 01/03/2017 7:15 AM Dictated Date/Time: 01/03/2017 7:14 AM
[2017-01-18] MEDS ORDERED: IBUP-1459 PO (13:37)
== END 2017-01-03 04:00 | disposition home or self-care (01) ==
LOC: C.EDB 23:01 → C.EDA 01-03 04:00
DX: R10.9 Unspecified abdominal pain (principal); H91.3 Deaf nonspeaking, not elsewhere classified; F17.200 Nicotine dependence, unspecified, uncomplicated

== ENCOUNTER 2017-01-16 14:32 | Observation (INO) | payer OTHER ==
[~2017-01-16] VITALS: Ht 175.3 cm; Wt 105.2 kg
[~2017-01-16 14:32] MED LIST changes: -AMOX875T PO
[2017-01-16] MEDS ORDERED: SODIUM CHLORIDE 0.9% 1000ML 1,000 ML IV STA (15:04)
[2017-01-16] MEDS ORDERED: MoRPHine SULFATE 4 MG/ML 1 ML CARP\\VIAL IV STA ×3 (15:04→20:44)
[2017-01-16] MEDS ORDERED: ONDANSETRON INJ 2 MG/ML 2 ML VIAL IV STA (15:04)
--- NOTE | 2017-01-16 15:26 | EMERGENCY ROOM VISIT NOTE ---
History First contact with patient: 14:43 Chief Complaint: ABDOMINAL PAIN Stated Complaint: HEART PAIN, STOMACH PAIN History of Present Illness The patient is a 31 year old male who presents to the Emergency Room from [facility] accompanied by 2 guards with complaints of abdominal pain and nausea that started 2 days ago. Patient states that the abdominal pain is in his lower abdomen, intermittent, but very severe when he has it, worse with movement, better with rest, currently 9/10. He has associated heart palpitations and nausea with the pain, as well as some occasional dizziness. He has had some dysuria, but denies urinary frequency, hesitancy, foul smelling urine, pain or swelling in the penis or scrotum. Patient had an appendectomy performed on December 21 at [facility] by Dr. Shaw, he states he has been doing well since the surgery until the past 2 days. He did complete a course of Augmentin for one week post surgery area. He denies any headache, shortness of breath, back pain , fevers or chills, changes in his bowel movements, and he has had a normal appetite. Review of Systems A complete 10 point review of systems was reviewed with the patient with pertinent positives and negatives as per history of present illness. All else were negative. Past Medical/Surgical History Medical Problems: (1) Abdominal pain (2) Deaf (3) Postoperative ileus Surgical Problems: (1) S/P laparoscopic appendectomy Family History Patient reports no known family medical history. Social History Smoking Status: Current Every Day Smoker Marital Status: single Housing Status: other Occupation Status: other Current/Historical Medications Scheduled PRN Ibuprofen (Motrin), 800 MG PO TID PRN for Pain Allergies Coded Allergies: NO KNOWN DRUG ALLERGIES (Verified Allergy, Unknown, none, 01/16/17) Physical Exam Vital Signs Date Time Temp Pulse Resp B/P (MAP) Pulse Ox O2 Delivery O2 Flow Rate FiO2 01/16/17 21:32 76 01/16/17 20:54 67 18 150/79 98 Room Air 01/16/17 17:54 78 16 98 Room Air 01/16/17 17:04 87 01/16/17 16:27 80 18 142/77 98 Room Air 01/16/17 14:38 36.5 71 16 153/90 99 Room Air Physical Exam CONSTITUTIONAL: No acute distress. Mildly dehydrated. Well appearing and well nourished. Alert and oriented X 4 with normal affect. HEENT: Normocephalic, atraumatic. Pupils equal, round and reactive to light, EOMI. TMs normal. Pharynx normal. Tacky mucous membranes. NECK: Supple, full active range of motion without discomfort. RESPIRATORY: Clear to auscultation bilaterally with no wheezing, crackles, rhonchi or stridor. Equal expansion bilaterally. CARDIOVASCULAR: Regular rate and rhythm with no murmurs, rubs or gallops. Normal peripheral perfusion. No edema. GASTROINTESTINAL: Severely tender in the right lower quadrant and suprapubic area of the abdomen. Positive guarding. Negative rebound. Soft, nondistended , obese. Bowel sounds present in all quadrants. No CVA tenderness. Laparoscopic surgical incisions noted to the abdomen, appeared to be healing well, no erythema, tenderness, or drainage noted. MUSCULOSKELETAL: Full range of motion of all joints without discomfort. INTEGUMENTARY: No rash or other significant dermatologic conditions noted. NEUROLOGIC: Cranial nerves II-XII grossly intact. No focal neurologic deficits noted. Medical Decision & Procedures ER Provider Diagnostic Interpretation: ABD/PELVIS IV CONTRAST ONLY CLINICAL HISTORY: 31 years-old Male presenting with RLQ pain, nausea, sweats. TECHNIQUE: Multidetector CT of the abdomen and pelvis was performed after the administration of intravenous contrast. IV contrast: 93 mL of Optiray 320. A dose lowering technique was used consistent with the principles of ALARA (as low as reasonably achievable). COMPARISON: 01/03/2017. CT DOSE (mGy.cm): The estimated cumulative dose is 876.21 mGy.cm. 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 Lung bases: Minimal dependent changes likely atelectasis. Mosaic attenuation at the lung bases could suggest small airways disease. Normal heart size. No pericardial or pleural effusion. Liver: Normal morphology. No liver lesion. Patent hepatic vasculature. Biliary: No intrahepatic or extrahepatic biliary ductal dilatation. Normal gallbladder. Pancreas: Moderate parenchymal atrophy. Spleen: Normal. Adrenal glands: Normal. Kidneys and ureters: Normal. No hydronephrosis. Bladder: Normal. Pelvic organs: Prostate and seminal vesicles normal. Bowel: Postsurgical changes of appendectomy. No bowel obstruction. Peritoneal cavity: A nodular focus persists in the rectum prostatic region (series 2 image 79), residual peritoneal thickening. Resolved additional phlegmonous regions in the left lower quadrant. Overall similar appearance of mild diffuse peritoneal thickening and mesenteric infiltration. Focal infiltrated fat along the anterior aspect of the right colon with central density (series 2 image 48), stable to slight interval increase from prior. Vasculature: Atherosclerosis of the normal caliber abdominal aorta. IVC patent. Lymph nodes: Scattered small lymph nodes likely reactive. No pathologically enlarged lymph nodes. Abdominal wall: Mild diffuse body wall edema. Musculoskeletal: Normal. IMPRESSION: 1. Continued interval evolution of postsurgical/postinflammatory changes with resolving phlegmon in the pelvis/left lower quadrant. No new abscess. 2. Stable to slight interval increase in focal infiltration of the fat along the right colon, which could suggest involving omental infarct. 3. Post surgical changes of appendectomy. Laboratory Results 01/16/17 15:27 Red Blood Count 4.96, Mean Corpuscular Volume 89.7, Mean Corpuscular Hemoglobin 30.6, Mean Corpuscular Hemoglobin Concent 34.2, Mean Platelet Volume 9.9, Neutrophils (%) (Auto) 60.7, Lymphocytes (%) (Auto) 31.0, Monocytes (%) (Auto) 6.7, Eosinophils (%) (Auto) 1.2, Basophils (%) (Auto) 0.3, Neutrophils # (Auto) 5.61, Lymphocytes # (Auto) 2.87, Monocytes # (Auto) 0.62, Eosinophils # (Auto) 0.11, Basophils # (Auto) 0.03 01/16/17 15:27 Test 01/16/17 15:27 01/16/17 15:46 01/16/17 16:35 01/16/17 18:49 White Blood Count 9.25 K/uL (4.8-10.8) Red Blood Count 4.96 M/uL (4.7-6.1) Hemoglobin 15.2 g/dL (14.0-18.0) Hematocrit 44.5 % (42-52) Mean Corpuscular Volume 89.7 fL (80-100) Mean Corpuscular Hemoglobin 30.6 pg (25-34) Mean Corpuscular Hemoglobin Concent 34.2 g/dl (32-36) Platelet Count 259 K/uL (130-400) Mean Platelet Volume 9.9 fL (7.4-10.4) Neutrophils (%) (Auto) 60.7 % Lymphocytes (%) (Auto) 31.0 % Monocytes (%) (Auto) 6.7 % Eosinophils (%) (Auto) 1.2 % Basophils (%) (Auto) 0.3 % Neutrophils # (Auto) 5.61 K/uL (1.4-6.5) Lymphocytes # (Auto) 2.87 K/uL (1.2-3.4) Monocytes # (Auto) 0.62 K/uL (0.11-0.59) Eosinophils # (Auto) 0.11 K/uL (0-0.5) Basophils # (Auto) 0.03 K/uL (0-0.2) RDW Standard Deviation 46.9 fL (36.4-46.3) RDW Coefficient of Variation 14.2 % (11.5-14.5) Immature Granulocyte % (Auto) 0.1 % Immature Granulocyte # (Auto) 0.01 K/uL (0.00-0.02) Est Creatinine Clear Calc Drug Dose 157.6 ml/min Estimated GFR () 136.3 Estimated GFR (Non- 117.6 BUN/Creatinine Ratio 10.7 (10-20) Calcium Level 8.9 mg/dl (8.5-10.1) Total Bilirubin 0.5 mg/dl (0.2-1) Direct Bilirubin 0.2 mg/dl (0-0.2) Aspartate Amino Transf (AST/SGOT) 12 U/L (15-37) Alanine Aminotransferase (ALT/SGPT) 35 U/L (12-78) Alkaline Phosphatase 82 U/L (45-117) Total Protein 7.5 gm/dl (6.4-8.2) Albumin 3.8 gm/dl (3.4-5.0) Lipase 88 U/L (73-393) Bedside Hemoglobin 15.6 g/dl (14.0-18.0) Bedside Hematocrit 46 % (42-52) Bedside Sodium 142 mEq/L (135-144) Bedside Potassium 3.8 mEq/L (3.3-5.0) Bedside Chloride 102 mEq/L (101-112) Bedside Total CO2 28 mEq/l (24-31) Anion Gap 17.0 mmol/L (16-25) Bedside Blood Urea Nitrogen 8 mg/dl (7-18) Bedside Creatinine 0.8 mg/dl (0.6-1.3) Bedside Glucose (other) 75 mg/dl (70-99) Bedside Ionized Calcium ([place]) 1.20 mmol/l (1.12-1.32) Urine Color YELLOW Urine Appearance CLEAR (CLEAR) Urine pH 6.5 (4.5-7.5) Urine Specific [place] 1.011 (1.000-1.030) Urine Protein NEG (NEG) Urine Glucose (UA) NEG (NEG) Urine Ketones NEG (NEG) Urine Occult Blood NEG (NEG) Urine Nitrite NEG (NEG) Urine Bilirubin NEG (NEG) Urine Urobilinogen NEG (NEG) Urine Leukocyte Esterase NEG (NEG) Bedside Lactic Acid Venous 0.54 mmol/L (0.90-1.70) Medications Administered Medications (Trade) Dose Ordered Sig/Chau Route Start Time Stop Time Status Last Admin Dose Admin Morphine Sulfate (MoRPHine SULFATE INJ) 4 mg NOW STAT IV 01/16/17 15:04 01/16/17 15:10 DC 01/16/17 15:42 4 MG Ondansetron HCl (Zofran Inj) 4 mg NOW STAT IV 01/16/17 15:04 01/16/17 15:10 DC 01/16/17 15:41 4 MG Sodium Chloride 1,000 ml @ 999 mls/hr Q1H1M STAT IV 01/16/17 15:04 01/16/17 16:15 DC 01/16/17 15:41 999 MLS/HR Morphine Sulfate (MoRPHine SULFATE INJ) 4 mg NOW STAT IV 01/16/17 16:33 01/16/17 16:34 DC 01/16/17 16:36 4 MG Morphine Sulfate (MoRPHine SULFATE INJ) 4 mg NOW STAT IV 01/16/17 20:44 01/16/17 20:45 DC 01/16/17 20:52 4 MG ECG Indication: palpitations Rate (beats per minute): 67 Rhythm: normal sinus Findings: no acute ischemic change, no ectopy Comparison ECG Date: no prior available Medical Decision CC: Patient presenting with complaint of abdominal pain Interpretation of Labs: No leukocytosis, no anemia, no significant only joint abnormality, normal renal function, normal liver enzymes and lipase, UA negative. Normal lactic acid. Differential Diagnosis: Includes, but not limited to intra-abdominal abscess/ infection, surgical complication, bowel perforation, reactive adenopathy, UTI, musculoskeletal pain, gastroenteritis, small bowel obstruction, among others. Medication Reconciliation: I attest that I have personally reviewed the patient' s current medication list. Vital signs review: I reviewed the patient's vital signs and interpret them as follows: T: Afebrile; BP: Hypertensive; HR: Within normal limits; RR: Within normal limits; Pulse Ox: Within normal limits on room air. Blood pressure screening: The patient was found to have an elevated blood pressure, which was felt to be situational. Summary: Patient was evaluated at bedside, history of physical exam performed. Patient is alert and in no acute distress, but does appear in some pain, resting comfortably in the stretcher. Drill Grinder tablet used for Samoan sign language, as the patient is deaf. Patient has significant tenderness of his right lower quadrant suprapubic area of the abdomen, positive guarding. The abdomen is otherwise nontender. Orders were placed at bedside for labs, UA, IV fluids for hydration, IV morphine for pain, IV Zofran for nausea, CT abdomen/pelvis with IV contrast to evaluate for intra-abdominal infection or postsurgical comp patient. Patient discussed with Dr. Cardenas, who agrees with my assessment and plan. Labs reviewed as above, no significant abnormalities. EKG shows normal sinus rhythm with no ischemic changes or ectopy. CT abdomen/pelvis shows persistent inflammatory changes which may be postsurgical versus possible developing infection, as well as concern for any evolving omental infarct, which may account for patient's severe pain. I spoke with Dr. Camara, general surgery, who reviewed the patient's CT results and does not feel there is anything surgical to be done at this time. Of note, patient did have development of postop ileus and abscess after his appendectomy requiring a prolonged hospital stay. Patient reassessed multiple times throughout ED stay, he continues to complain of 10/10 pain and has received multiple doses of IV morphine. On repeat abdominal exam, he continues to be very tender in the right lower quadrant. Given his recent surgery with some postop complications, and persistent severe pain, I feel the patient would benefit from at least an observational stay for pain management and serial exams. I spoke with Pina Spencer PA-C with hospitalist service, who agrees to admit the patient. Patient stable at time of admission. Impression Primary Impression: Right lower quadrant pain Additional Impression: Omental infarction Departure Information Dispostion Admitted as an inpatient Condition [facility] (PCP) Patient Instructions My [facility] Problem Qualifiers
[2017-01-16] MEDS ORDERED: OPTIRAY 320 IV PRN (15:30)
[2017-01-16] MEDS ORDERED: IBUP-1459 PO (15:46)
[2017-01-16 15:47] LABS: BASO % 0.3 %; BASO ABS # 0.03 K/uL (0-0.2); COMPLETE YES; EOS % 1.2 %; HEMATOCRIT 44.5 % (42-52); IG% 0.1 %; LYMPH ABS # 2.87 K/uL (1.2-3.4); MEAN CELL VOLUME 89.7 fL (80-100); MEAN CORPUSCULAR HEMOGLOBIN 30.6 pg (25-34); MEAN CORPUSCULAR HGB CONC 34.2 g/dl (32-36); MEAN PLATELET VOLUME 9.9 fL (7.4-10.4); MONO % 6.7 %; NEUT % 60.7 %; PLATELET COUNT 259 K/uL (130-400); RED BLOOD COUNT 4.96 M/uL (4.7-6.1); WHITE BLOOD COUNT 9.25 K/uL (4.8-10.8)
[2017-01-16 15:57] LABS: ISTAT CREATININE 0.8 mg/dl (0.6-1.3); ISTAT HEMOGLOBIN 15.6 g/dl (14.0-18.0); ISTAT IONIZED CALCIUM 1.2 mmol/l (1.12-1.32)
[2017-01-16 16:05] LABS: BUN/CREATININE RATIO 10.7 (10-20); CALCIUM 8.9 mg/dl (8.5-10.1); CREATININE 0.81 mg/dl (0.60-1.40); POTASSIUM 3.8 mmol/L (3.5-5.1)
[2017-01-16 16:57] LABS: URINE APPEARANCE CLEAR (CLEAR); URINE BILIRUBIN NEG (NEG); URINE COLOR YELLOW; URINE NITRITE NEG (NEG); URINE PH 6.5 (4.5-7.5); URINE SPECIFIC GRAVITY 1.011 (1.000-1.030); UROBILINOGEN NEG (NEG); ZZUR CULT IF INDIC CLEAN CATCH NO
[2017-01-16 17:01] LABS: MANUAL MICROSCOPIC REQUIRED? NO; REVIEW REQ? NO
--- NOTE | 2017-01-16 17:38 | DIAGNOSTIC IMAGING REPORT ---
ABD/PELVIS IV CONTRAST ONLY CLINICAL HISTORY: 31 years-old Male presenting with RLQ pain, nausea, sweats. TECHNIQUE: Multidetector CT of the abdomen and pelvis was performed after the administration of intravenous contrast. IV contrast: 93 mL of Optiray 320. A dose lowering technique was used consistent with the principles of ALARA (as low as reasonably achievable). COMPARISON: 01/03/2017. CT DOSE (mGy.cm): The estimated cumulative dose is 876.21 mGy.cm. 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 Lung bases: Minimal dependent changes likely atelectasis. Mosaic attenuation at the lung bases could suggest small airways disease. Normal heart size. No pericardial or pleural effusion. Liver: Normal morphology. No liver lesion. Patent hepatic vasculature. Biliary: No intrahepatic or extrahepatic biliary ductal dilatation. Normal gallbladder. Pancreas: Moderate parenchymal atrophy. Spleen: Normal. Adrenal glands: Normal. Kidneys and ureters: Normal. No hydronephrosis. Bladder: Normal. Pelvic organs: Prostate and seminal vesicles normal. Bowel: Postsurgical changes of appendectomy. No bowel obstruction. Peritoneal cavity: A nodular focus persists in the rectum prostatic region (series 2 image 79), residual peritoneal thickening. Resolved additional phlegmonous regions in the left lower quadrant. Overall similar appearance of mild diffuse peritoneal thickening and mesenteric infiltration. Focal infiltrated fat along the anterior aspect of the right colon with central density (series 2 image 48), stable to slight interval increase from prior. Vasculature: Atherosclerosis of the normal caliber abdominal aorta. IVC patent. Lymph nodes: Scattered small lymph nodes likely reactive. No pathologically enlarged lymph nodes. Abdominal wall: Mild diffuse body wall edema. Musculoskeletal: Normal. IMPRESSION: 1. Continued interval evolution of postsurgical/postinflammatory changes with resolving phlegmon in the pelvis/left lower quadrant. No new abscess. 2. Stable to slight interval increase in focal infiltration of the fat along the right colon, which could suggest involving omental infarct. 3. Post surgical changes of appendectomy. Electronically signed by: Gal Miguel M.D. 01/16/2017 5:37 PM Dictated Date/Time: 01/16/2017 5:29 PM
[2017-01-16] MEDS ORDERED: ONDANSETRON INJ 2 MG/ML 2 ML VIAL IV PRN (21:45)
[2017-01-16] MEDS ORDERED: ACETAMINOPHEN 325 MG TAB PO PRN (21:45)
--- NOTE | 2017-01-16 21:56 | History and Physical ---
History & Physical Date & Time of Service: Jan 16, 2017 at 21:45 Chief Complaint: Heart Pain, Stomach Pain Primary Care Physician: [facility], [facility] History of Present Illness Source: patient This is a 31yo M with a PMH of tobacco use disorder who presents from [facility] with abdominal pain and nausea that started 3 days ago. Patient had an appendectomy performed at [facility] on 12/[address] Shaw with post-op course complicated by an ileus. Was discharged on 12/31 and completed a one week post-op course of Augmentin. States that since the surgery he has felt back to normal, endorsing a normal PO intake and regular bowel movements. Three days ago, patient started to experience intermittent, severe, 10/10 RLQ abdominal pain with radiation to his epigastrium and chest. Describes pain as sharp and throbbing. Is made worse with movement and better with rest. Has been taking ibuprofen PRN without relief. States that pain has progressively worsened over the past few days, from 8/10 to 10/10 today. Has been nauseous and experiencing acid reflux but not vomiting. Endorses some lightheadedness, chills, palpitations and dysuria in addition to his pain. Denies fever, headache , dyspnea, SOB, diarrhea, constipation, LE pain or swelling. Also denies other urinary symptoms such as increased frequency, hematuria, flank pain. Had 2 bowel movements this morning of normal color and caliber. Of note, patient is hearing impaired and interview took place with the help of a ux visual designer. Family History Family history was reviewed; no changes noted. 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 Allergies Coded Allergies: NO KNOWN DRUG ALLERGIES (Verified Allergy, Unknown, none, 01/16/17) Home Medications Scheduled PRN Ibuprofen (Motrin), 800 MG PO TID PRN for Pain Review of Systems Constitutional- See HPI. Eyes- no acute visual changes ENT- no sinus drainage; no pharyngitis Pulmonary- no cough, no wheezing, no shortness of breath Cardiac- See HPI. GI- See HPI. - no dysuria, no hematuria Musculoskeletal- no arthralgias, no myalgias Derm- no rashes, no new skin lesions, no changing skin lesions Hematologic- no unusual bruising, no unusual bleeding Lymphatics- no adenopathy Endocrine- no polyuria or polydipsia; no heat or cold intolerance Neuro- no headaches, no focal neurologic symptoms Psych- no anxiety, no depression Physical Exam Vital Signs Date Time Temp Pulse Resp B/P (MAP) Pulse Ox O2 Delivery O2 Flow Rate FiO2 01/16/17 21:32 76 01/16/17 20:54 67 18 150/79 98 Room Air 01/16/17 17:54 78 16 98 Room Air 01/16/17 17:04 87 01/16/17 16:27 80 18 142/77 98 Room Air 01/16/17 14:38 36.5 71 16 153/90 99 Room Air General Appearance: WD/WN, + mild distress Head: normocephalic, atraumatic Eyes: normal inspection, PERRL ENT: + pertinent finding (Deaf) Neck: supple, no adenopathy, trachea midline Respiratory/Chest: chest non-tender, lungs clear, normal breath sounds, no respiratory distress, no accessory muscle use Cardiovascular: regular rate, rhythm, no murmur, normal peripheral pulses Abdomen/GI: soft, no organomegaly, no pulsatile mass, + tenderness (Mild TTP in epigastrium. TTP in RLQ with guarding.), + abnormal bowel sounds (Hypoactive but present in all 4 quadrants.) Extremities/Musculoskelatal: normal inspection, no calf tenderness, no pedal edema Neurologic/Psych: alert, normal mood/affect, oriented x 3 Skin: normal color, warm/dry, no rash Diagnostics Laboratory Results Results Past 24 Hours Test 01/16/17 15:27 01/16/17 15:46 01/16/17 16:35 01/16/17 18:49 Range/Units White Blood Count 9.25 4.8-10.8 K/uL Red Blood Count 4.96 4.7-6.1 M/uL Hemoglobin 15.2 14.0-18.0 g/dL Hematocrit 44.5 42-52 % Mean Corpuscular Volume 89.7 80-100 fL Mean Corpuscular Hemoglobin 30.6 25-34 pg Mean Corpuscular Hemoglobin Concent 34.2 32-36 g/dl Platelet Count 259 130-400 K/uL Mean Platelet Volume 9.9 7.4-10.4 fL Neutrophils (%) (Auto) 60.7 % Lymphocytes (%) (Auto) 31.0 % Monocytes (%) (Auto) 6.7 % Eosinophils (%) (Auto) 1.2 % Basophils (%) (Auto) 0.3 % Neutrophils # (Auto) 5.61 1.4-6.5 K/uL Lymphocytes # (Auto) 2.87 1.2-3.4 K/uL Monocytes # (Auto) 0.62 0.11-0.59 K/uL Eosinophils # (Auto) 0.11 0-0.5 K/uL Basophils # (Auto) 0.03 0-0.2 K/uL RDW Standard Deviation 46.9 36.4-46.3 fL RDW Coefficient of Variation 14.2 11.5-14.5 % Immature Granulocyte % (Auto) 0.1 % Immature Granulocyte # (Auto) 0.01 0.00-0.02 K/uL Sodium Level 142 136-145 mmol/L Potassium Level 3.8 3.5-5.1 mmol/L Chloride Level 107 98-107 mmol/L Carbon Dioxide Level 29 21-32 mmol/L Anion Gap 6.0 17.0 16-25 mmol/L Blood Urea Nitrogen 9 7-18 mg/dl Creatinine 0.81 0.60-1.40 mg/dl Est Creatinine Clear Calc Drug Dose 157.6 ml/min Estimated GFR () 136.3 Estimated GFR (Non- 117.6 BUN/Creatinine Ratio 10.7 10-20 Random Glucose 75 70-99 mg/dl Calcium Level 8.9 8.5-10.1 mg/dl Total Bilirubin 0.5 0.2-1 mg/dl Direct Bilirubin 0.2 0-0.2 mg/dl Aspartate Amino Transf (AST/SGOT) 12 15-37 U/L Alanine Aminotransferase (ALT/SGPT) 35 12-78 U/L Alkaline Phosphatase 82 45-117 U/L Total Protein 7.5 6.4-8.2 gm/dl Albumin 3.8 3.4-5.0 gm/dl Lipase 88 73-393 U/L Bedside Hemoglobin 15.6 14.0-18.0 g/dl Bedside Hematocrit 46 42-52 % Bedside Sodium 142 135-144 mEq/L Bedside Potassium 3.8 3.3-5.0 mEq/L Bedside Chloride 102 101-112 mEq/L Bedside Total CO2 28 24-31 mEq/l Bedside Blood Urea Nitrogen 8 7-18 mg/dl Bedside Creatinine 0.8 0.6-1.3 mg/dl Bedside Glucose (other) 75 70-99 mg/dl Bedside Ionized Calcium ([place]) 1.20 1.12-1.32 mmol/l Urine Color YELLOW Urine Appearance CLEAR CLEAR Urine pH 6.5 4.5-7.5 Urine Specific [place] 1.011 1.000-1.030 Urine Protein NEG NEG Urine Glucose (UA) NEG NEG Urine Ketones NEG NEG Urine Occult Blood NEG NEG Urine Nitrite NEG NEG Urine Bilirubin NEG NEG Urine Urobilinogen NEG NEG Urine Leukocyte Esterase NEG NEG Bedside Lactic Acid Venous 0.54 0.90-1.70 mmol/L Diagnostic Radiology CT Abd/pelvis: IMPRESSION: 1. Continued interval evolution of postsurgical/postinflammatory changes with resolving phlegmon in the pelvis/left lower quadrant. No new abscess. 2. Stable to slight interval increase in focal infiltration of the fat along the right colon, which could suggest involving omental infarct. 3. Post surgical changes of appendectomy. Normal EKG Impression Assessment and Plan This is a 31yo M with a PMH of tobacco use disorder who presents from [facility] with abdominal pain and nausea that started 3 days ago. RLQ abdominal pain: -Endorses 12/21 pain after morphine -Afebrile, stable VS, no leukocytosis, UA wnl -CT abd pelvis with continued evolution of post-surgical/postinflammatory changes with resolving phlegmon in the pelvis/left lower quadrant. No new abscess. Slight increase in focal infiltration of the fat along the right colon, which could suggest involving omental infarct. -Consulted general surgery -CT abd/pelvis with findings consistent with a resolving post-surgical process -No indication for surgery or antibiotics at this time -Pain management, IVF -Tolerating a regular diet Tobacco abuse: counseled on recommendation to quit smoking. Epigastric pain, atypical chest pain: -RLQ pain with radiation to epigastrium -Started on IV Pepcid for acid reflux symptoms -EKG with NSR, CXR pending DVT Ppx: SCDs Code status: FULL [facility] Dispo: Plan to return to intermediate once medically stable ADDENDUM: Pt describes abdominal pain as never fully resolving since surgery on 12/21 and has gotten progressively worse over that past 3-4 days. The pain is worse with movement like walking, when he initially stands up or when he stretches out into a cat stretch. Abdomen is soft and non-distended per my exam with exquisitely tender RLQ to palpation. He also endorses intermittent dysuria. He is tolerating PO, no surgical indications at this time with goal of pain control. Question possibility of STD? May benefit testicular evaluation and urine GC testing? For now, will control pain with Tramadol and Tylenol scheduled. Of note the patient is hearing impaired and a court interpreter was used for ,my interview. Aashish, DO Level of Care Med/Surg Resuscitation Status FULL RESUSCITATION VTE Prophylaxis VTE Risk Assessment Done? Y/N: Yes Risk Level: Low Given or contraindicated: SCD's
[2017-01-16] MEDS ORDERED: POLYETHYLENE (MIRALAX) 17 GM PACK PO PRN (22:15)
[2017-01-16 22:25] VITALS: BP 135/80; PULSE 63; TEMP 36.8; O2SAT 98
[2017-01-16] MEDS ORDERED: FAMOTIDINE IV INJ 20 MG in DEXTROSE 5% 100ML 100 ML IV SCH (22:30)
--- NOTE | 2017-01-16 22:31 | Surgery Consultation ---
Consultation Date of Consultation: Jan 16, 2017. Attending Physician: History of Present Illness Johnny Cheema is a 31 year old man who underwent a laparoscopic appendectomy on 12/21/16. The appendix was not reported to be ruptured, and there were no issues with the operation; he was discharged back to [facility] the same day, but was subsequently readmitted with an ileus, which eventually resolved with non operative management. Today, he presents to the ED with the complaint of 2 days of RLQ pain. Pain is constant, but intermittently crampy and worse; seems to radiate up into his chest. While having the pain, patient has palpitations and feels like his heart is racing. Also reports burning with urination. Reports going back and forth between being hot and cold, but no true fevers reported. Last BM was approximately 2 days ago, he has not noticed any changes in his usual bowel habits. Denies headaches, dizziness, vision changes, shortness of breath, cough, nausea or vomiting, appetite changes, constipation or diarrhea, melena / hematochezia, pain / numbness / swelling / tingling in extremities. Past Medical/Surgical History Medical Problems: (1) Appendicitis Status: Acute (2) Generalized abdominal pain Status: Acute (3) Omental infarction Status: Acute (4) Right lower quadrant pain Status: Acute Family History Patient reports no known family medical history. Social History Smoking Status: Current Every Day Smoker Marital Status: single Housing Status: other Occupation Status: other Allergies Coded Allergies: NO KNOWN DRUG ALLERGIES (Verified Allergy, Unknown, none, 01/16/17) Home Medications Scheduled PRN Ibuprofen (Motrin), 800 MG PO TID PRN for Pain Current Inpatient Medications Current Inpatient Medications Medications (Trade) Dose Ordered Sig/Chau Route Start Time Stop Time Status Last Admin Dose Admin Ioversol (Optiray 320) 125 ml UD PRN IV 01/16/17 15:30 01/20/17 15:29 Acetaminophen (Tylenol Tab) 650 mg Q4H PRN PO 01/16/17 21:45 02/15/17 21:44 Ondansetron HCl (Zofran Inj) 4 mg Q6H PRN IV 01/16/17 21:45 02/15/17 21:44 Sodium Chloride 1,000 ml @ 150 mls/hr Q6H40M IV 01/16/17 22:15 01/17/17 11:34 UNV Morphine Sulfate (MoRPHine SULFATE INJ) 4 mg Q4 PRN IV 01/16/17 22:15 01/30/17 22:14 Polyethylene (Miralax Powder Packet) 17 gm DAILY PRN PO 01/16/17 22:15 02/15/17 22:14 Review of Systems Constitutional: No fever, No chills Eyes: No worsening of vision ENT: + hearing loss (baseline) Respiratory: No cough, No wheezing, No shortness of breath Cardiovascular: + chest pain (with abdominal pain) Abdomen: + pain, No nausea, No vomiting, No diarrhea, No constipation, No GI bleeding Genitourinary - Male: + dysuria (burning with urination) Physical Exam Date Time Temp Pulse Resp B/P (MAP) Pulse Ox O2 Delivery O2 Flow Rate FiO2 01/16/17 22:13 68 18 138/80 98 01/16/17 21:32 76 01/16/17 20:54 67 18 150/79 98 Room Air 01/16/17 17:54 78 16 98 Room Air 01/16/17 17:04 87 01/16/17 16:27 80 18 142/77 98 Room Air 01/16/17 14:38 36.5 71 16 153/90 99 Room Air General Appearance: WD/WN, no apparent distress Head: normocephalic, atraumatic Eyes: normal inspection Neck: supple Respiratory/Chest: lungs clear, normal breath sounds, no respiratory distress Cardiovascular: regular rate, rhythm, no edema Abdomen/GI: normal bowel sounds, soft (non distended), + tenderness (tender to palpation in RLQ, no rebound tenderness), + pertinent finding (incisions healing well, no erythema / swelling or signs of infection) Neurologic/Psych: alert, normal mood/affect, oriented x 3 Skin: normal color, warm/dry, no rash Laboratory Results Last 24 Hours Test 01/16/17 15:27 01/16/17 15:46 01/16/17 16:35 01/16/17 18:49 White Blood Count 9.25 K/uL Red Blood Count 4.96 M/uL Hemoglobin 15.2 g/dL Hematocrit 44.5 % Mean Corpuscular Volume 89.7 fL Mean Corpuscular Hemoglobin 30.6 pg Mean Corpuscular Hemoglobin Concent 34.2 g/dl Platelet Count 259 K/uL Mean Platelet Volume 9.9 fL Neutrophils (%) (Auto) 60.7 % Lymphocytes (%) (Auto) 31.0 % Monocytes (%) (Auto) 6.7 % Eosinophils (%) (Auto) 1.2 % Basophils (%) (Auto) 0.3 % Neutrophils # (Auto) 5.61 K/uL Lymphocytes # (Auto) 2.87 K/uL Monocytes # (Auto) 0.62 K/uL Eosinophils # (Auto) 0.11 K/uL Basophils # (Auto) 0.03 K/uL RDW Standard Deviation 46.9 fL RDW Coefficient of Variation 14.2 % Immature Granulocyte % (Auto) 0.1 % Immature Granulocyte # (Auto) 0.01 K/uL Sodium Level 142 mmol/L Potassium Level 3.8 mmol/L Chloride Level 107 mmol/L Carbon Dioxide Level 29 mmol/L Anion Gap 6.0 mmol/L 17.0 mmol/L Blood Urea Nitrogen 9 mg/dl Creatinine 0.81 mg/dl Est Creatinine Clear Calc Drug Dose 157.6 ml/min Estimated GFR () 136.3 Estimated GFR (Non- 117.6 BUN/Creatinine Ratio 10.7 Random Glucose 75 mg/dl Calcium Level 8.9 mg/dl Total Bilirubin 0.5 mg/dl Direct Bilirubin 0.2 mg/dl Aspartate Amino Transf (AST/SGOT) 12 U/L Alanine Aminotransferase (ALT/SGPT) 35 U/L Alkaline Phosphatase 82 U/L Total Protein 7.5 gm/dl Albumin 3.8 gm/dl Lipase 88 U/L Bedside Hemoglobin 15.6 g/dl Bedside Hematocrit 46 % Bedside Sodium 142 mEq/L Bedside Potassium 3.8 mEq/L Bedside Chloride 102 mEq/L Bedside Total CO2 28 mEq/l Bedside Blood Urea Nitrogen 8 mg/dl Bedside Creatinine 0.8 mg/dl Bedside Glucose (other) 75 mg/dl Bedside Ionized Calcium ([place]) 1.20 mmol/l Urine Color YELLOW Urine Appearance CLEAR Urine pH 6.5 Urine Specific [place] 1.011 Urine Protein NEG Urine Glucose (UA) NEG Urine Ketones NEG Urine Occult Blood NEG Urine Nitrite NEG Urine Bilirubin NEG Urine Urobilinogen NEG Urine Leukocyte Esterase NEG Bedside Lactic Acid Venous 0.54 mmol/L 01/16/17 CT Abd / Pelvis with IV contrast (no PO): IMPRESSION: 1. Continued interval evolution of postsurgical/postinflammatory changes with resolving phlegmon in the pelvis/left lower quadrant. No new abscess. 2. Stable to slight interval increase in focal infiltration of the fat along the right colon, which could suggest involving omental infarct. 3. Post surgical changes of appendectomy. Assessment & Plan Johnny Cheema is a 31 year old man who is s/p lap appy on 12/21/16 for non- perforated appendicitis with subsequent ileus (resolved non operatively) who presents with 2 days of RLQ / pelvic pain. Afebrile, hemodynamically stable and normal. No leukocytosis or other lab abnormalities. UA is negative for UTI. 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 No abscesses or drainable collections, no signs of obstruction or perforation. Also notes pain radiates up into his chest and causes palpitations / tachycardia. -No acute surgical intervention indicated at this time -Unclear source of pain - no abscesses to drain, no obstruction / perforation -Burning with urination, but UA negative -CXR / EKG per medicine team for cardiac workup -IVF, pain control as needed -OK for clear liquids from surgical standpoint, reassess tomorrow morning for advancement of diet -Would give stool softeners, has been a few days since last BM and now getting narcotic pain medications -Rest of plan per primary team -Will continue to follow Basia Camara MD 01/16/17
[2017-01-16] MEDS: SODIUM CHLORIDE 0.9% 1000ML 1,000 ML IV SCH (22:47)
--- NOTE | 2017-01-16 22:52 | DIAGNOSTIC IMAGING REPORT ---
CHEST ONE VIEW PORTABLE CLINICAL HISTORY: 31 years-old Male presenting with epigastric pain . TECHNIQUE: Portable upright AP view of the chest was obtained. COMPARISON: 01/02/2017. FINDINGS: Cardiomediastinal silhouette normal. Interval resolution of right midlung atelectasis. Mildly low lung volumes. This may result in the prominent appearance of the tarah. Lungs and pleural spaces clear. Osseous structures normal. Upper abdomen normal. IMPRESSION: 1. Mildly low lung volumes with hypoventilatory changes. No focal infiltrate. Electronically signed by: Gal Miguel M.D. 01/16/2017 10:50 PM Dictated Date/Time: 01/16/2017 10:49 PM
[2017-01-17] VITALS (9 sets, daily range): BP systolic 118–135; BP diastolic 63–88; PULSE 52–63; TEMP 36.5–37.1; O2SAT 97–100; Ht 175.3 cm; Wt 105.2 kg
[2017-01-17] MEDS ORDERED: IV FLUIDS COMPLETED PRN (00:30)
[2017-01-17] MEDS: MoRPHine SULFATE 4 MG/ML 1 ML CARP\\VIAL IV PRN ×6 (00:58→22:53)
[2017-01-17] MEDS ORDERED: TRAMADOL HCL 50 MG TAB ONE (03:25)
[2017-01-17] MEDS ORDERED: ACETAMINOPHEN 500 MG TAB PO ONE (03:25)
[2017-01-17] MEDS: TRAMADOL HCL 50 MG TAB PO SCH ×3 (04:00→20:33)
[2017-01-17] MEDS: SODIUM CHLORIDE 0.9% 1000ML 1,000 ML IV SCH (05:11)
[2017-01-17] MEDS ORDERED: ACETAMINOPHEN 500 MG TAB PO SCH (06:00)
[2017-01-17] MEDS: OXYCODONE/ACETAMINOPHEN 5-325 TAB PO PRN (08:07)
--- NOTE | 2017-01-17 09:20 | Surgery Progress Note ---
Surgery Progress Note Date of Service Jan 17, 2017. Subjective Patient examined at bedside this morning. Afebrile, vitals stable overnight on room air, no acute events. Continues to have pain in RLQ, though seems a bit more comfortable on exam this morning. Continues to be tender to palpation. Continues to complain of heart racing and dizziness when ambulating / out of bed. EKG showed NSR, CXR did not show any acute abnormalities. Denies N/V. Has been having normal BMs, most recently yesterday morning. Voiding without difficulty, denies dysuria today (UA was negative). Objective Vital Signs: Date Time Temp Pulse Resp B/P (MAP) Pulse Ox O2 Delivery O2 Flow Rate FiO2 01/17/17 07:04 36.5 52 18 123/75 (91) 97 Room Air 01/17/17 03:34 36.6 60 16 118/63 (81) 97 Room Air 01/17/17 03:17 36.8 63 18 135/80 Room Air 01/17/17 00:57 Room Air 01/16/17 22:25 36.8 63 18 135/80 (98) 98 Room Air 01/16/17 22:13 68 18 138/80 98 01/16/17 21:32 76 01/16/17 20:54 67 18 150/79 98 Room Air 01/16/17 17:54 78 16 98 Room Air 01/16/17 17:04 87 01/16/17 16:27 80 18 142/77 98 Room Air 01/16/17 14:38 36.5 71 16 153/90 99 Room Air General Appearance: WD/WN, no apparent distress Head: normocephalic Neck: supple Respiratory/Chest: lungs clear, normal breath sounds, no respiratory distress Cardiovascular: regular rate, rhythm Abdomen: normal bowel sounds, non distended, soft, + tenderness (tender to palpation in RLQ) Incision(s): clean, dry, intact (healing well) Laboratory Results: Results Past 24 Hours Test 01/16/17 15:27 01/16/17 15:46 01/16/17 16:35 01/16/17 18:49 Range/Units White Blood Count 9.25 4.8-10.8 K/uL Red Blood Count 4.96 4.7-6.1 M/uL Hemoglobin 15.2 14.0-18.0 g/dL Hematocrit 44.5 42-52 % Mean Corpuscular Volume 89.7 80-100 fL Mean Corpuscular Hemoglobin 30.6 25-34 pg Mean Corpuscular Hemoglobin Concent 34.2 32-36 g/dl Platelet Count 259 130-400 K/uL Mean Platelet Volume 9.9 7.4-10.4 fL Neutrophils (%) (Auto) 60.7 % Lymphocytes (%) (Auto) 31.0 % Monocytes (%) (Auto) 6.7 % Eosinophils (%) (Auto) 1.2 % Basophils (%) (Auto) 0.3 % Neutrophils # (Auto) 5.61 1.4-6.5 K/uL Lymphocytes # (Auto) 2.87 1.2-3.4 K/uL Monocytes # (Auto) 0.62 0.11-0.59 K/uL Eosinophils # (Auto) 0.11 0-0.5 K/uL Basophils # (Auto) 0.03 0-0.2 K/uL RDW Standard Deviation 46.9 36.4-46.3 fL RDW Coefficient of Variation 14.2 11.5-14.5 % Immature Granulocyte % (Auto) 0.1 % Immature Granulocyte # (Auto) 0.01 0.00-0.02 K/uL Sodium Level 142 136-145 mmol/L Potassium Level 3.8 3.5-5.1 mmol/L Chloride Level 107 98-107 mmol/L Carbon Dioxide Level 29 21-32 mmol/L Anion Gap 6.0 17.0 16-25 mmol/L Blood Urea Nitrogen 9 7-18 mg/dl Creatinine 0.81 0.60-1.40 mg/dl Est Creatinine Clear Calc Drug Dose 157.6 ml/min Estimated GFR () 136.3 Estimated GFR (Non- 117.6 BUN/Creatinine Ratio 10.7 10-20 Random Glucose 75 70-99 mg/dl Calcium Level 8.9 8.5-10.1 mg/dl Total Bilirubin 0.5 0.2-1 mg/dl Direct Bilirubin 0.2 0-0.2 mg/dl Aspartate Amino Transf (AST/SGOT) 12 15-37 U/L Alanine Aminotransferase (ALT/SGPT) 35 12-78 U/L Alkaline Phosphatase 82 45-117 U/L Total Protein 7.5 6.4-8.2 gm/dl Albumin 3.8 3.4-5.0 gm/dl Lipase 88 73-393 U/L Bedside Hemoglobin 15.6 14.0-18.0 g/dl Bedside Hematocrit 46 42-52 % Bedside Sodium 142 135-144 mEq/L Bedside Potassium 3.8 3.3-5.0 mEq/L Bedside Chloride 102 101-112 mEq/L Bedside Total CO2 28 24-31 mEq/l Bedside Blood Urea Nitrogen 8 7-18 mg/dl Bedside Creatinine 0.8 0.6-1.3 mg/dl Bedside Glucose (other) 75 70-99 mg/dl Bedside Ionized Calcium ([place]) 1.20 1.12-1.32 mmol/l Urine Color YELLOW Urine Appearance CLEAR CLEAR Urine pH 6.5 4.5-7.5 Urine Specific [place] 1.011 1.000-1.030 Urine Protein NEG NEG Urine Glucose (UA) NEG NEG Urine Ketones NEG NEG Urine Occult Blood NEG NEG Urine Nitrite NEG NEG Urine Bilirubin NEG NEG Urine Urobilinogen NEG NEG Urine Leukocyte Esterase NEG NEG Bedside Lactic Acid Venous 0.54 0.90-1.70 mmol/L Assessment & Plan Johnny Cheema is a 31 year old man who is s/p lap appy on 12/21/16 for non- perforated appendicitis with subsequent ileus (resolved non operatively) who presents with 2 days of RLQ / pelvic pain. Afebrile, hemodynamically stable and normal. No leukocytosis or other lab abnormalities. UA is negative for UTI. 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 No abscesses or drainable collections, no signs of obstruction or perforation. Also notes pain radiates up into his chest and causes palpitations / tachycardia. -No acute surgical intervention indicated at this time -Unclear source of pain - no abscesses to drain, no obstruction / perforation -Cardiac workup negative -IVF, pain control as needed -Regular diet as tolerated -Rest of plan per primary team -Will continue to follow Basia Camara MD 01/17/17
[2017-01-17] MEDS: FAMOTIDINE IV INJ 20 MG in DEXTROSE 5% 100ML 100 ML IV SCH ×2 (10:08→22:52)
[2017-01-17 10:49] LABS: BASO % 0.8 %; BASO ABS # 0.05 K/uL (0-0.2); EOS % 2.2 %; HEMATOCRIT 40.6 % (42-52); IG% 0.2 %; LYMPH % 33.6 %; LYMPH ABS # 2.18 K/uL (1.2-3.4); MEAN CELL VOLUME 91.4 fL (80-100); MEAN CORPUSCULAR HEMOGLOBIN 30.2 pg (25-34); MEAN PLATELET VOLUME 9.5 fL (7.4-10.4); MONO % 8.8 %; NEUT % 54.4 %; PLATELET COUNT 215 K/uL (130-400); RED BLOOD COUNT 4.44 M/uL (4.7-6.1); WHITE BLOOD COUNT 6.48 K/uL (4.8-10.8)
[2017-01-17 10:52] LABS: COMPLETE YES
[2017-01-17 11:20] LABS: ALT/SGPT 25 U/L (12-78); BLOOD UREA NITROGEN 6 mg/dl (7-18); BUN/CREATININE RATIO 7.6 (10-20); CALCIUM 8.1 mg/dl (8.5-10.1); CARBON DIOXIDE 27 mmol/L (21-32); CHLORIDE 108 mmol/L (98-107); CREATININE 0.82 mg/dl (0.60-1.40); GLUCOSE 124 mg/dl (70-99); MAGNESIUM 1.8 mg/dl (1.8-2.4); POTASSIUM 3.9 mmol/L (3.5-5.1); SODIUM 140 mmol/L (136-145)
[2017-01-17 11:35] LABS: ALB/GLOB RATIO 1.1 (0.9-2); ALKALINE PHOSPHATASE 66 U/L (45-117); AST/SGOT 11 U/L (15-37)
[2017-01-17] MEDS: ACETAMINOPHEN 500 MG TAB PO SCH ×2 (11:49→20:34)
--- NOTE | 2017-01-17 13:00 | Progress Note ---
Internal Med Progress Note Date of Service: Jan 17, 2017. Provider Documentation: SUBJECTIVE: Connected with wedding cake designer service to assist in communicating with deaf patient. Patient reports that he has been having right lower quadrant abdominal pain and associated with feeling like his heart is racing and sharp pain on chest like have a gunshot when he experiences the chest discomfort symptoms. He denies cardiac history. OBJECTIVE: General- hearing impaired and communicates with sign language Eyes- EOMI ENT - no exudates or bleeding Neck- no JVD, no addible bruits of the neck, trachea midline Lungs- clear to auscultation bilaterally Heart- regular rate, radial pulse is regular, rhythm appears to be in sinus Abdomen-when palpating right lower quadrant of abdomen patient grimaces and expresses acute tenderness, points to overlap of pain of right lower quadrant to bladder but nontender on palpation of bladder area Extremities- no edema, nontender, Neuro- awake and alert, communicates by sign language Lab data as noted below. ASSESSMENT & PLAN: Johnny Cheema is a 31 year old man who is s/p laparoscopy on 12/21/16 for non -perforated appendicitis with subsequent ileus (resolved non operatively) who presents with 2 days of RLQ / pelvic pain. On admission patient Afebrile, hemodynamically stable and normal. No leukocytosis or other lab abnormalities. UA is negative for UTI. 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 No abscesses or drainable collections, no signs of obstruction or perforation. As per general surgery there is no acute surgical intervention indicated at this time for abdominal complaints will send for abdominal ultrasound pain medications No cardiac history in a young adult, but patient also notes pain radiates up into his chest and causes palpitations initial troponin negative, transfer to telemetry, perhaps there may be underlying arrhythmia that has not been observed, cardiology consult placed for palpitations transthoracic echo ordered DVT Ppx: SCDs Code status: FULL [facility]CP[facility] Dispo: Plan to return to group home once pain improves and cardiac chest pain ruled out Vital Signs: Date Time Temp Pulse Resp B/P (MAP) Pulse Ox O2 Delivery O2 Flow Rate FiO2 01/17/17 10:50 36.5 52 18 97 01/17/17 08:00 Room Air 01/17/17 07:04 36.5 52 18 123/75 (91) 97 Room Air 01/17/17 03:34 36.6 60 16 118/63 (81) 97 Room Air 01/17/17 03:17 36.8 63 18 135/80 Room Air 01/17/17 00:57 Room Air 01/16/17 22:25 36.8 63 18 135/80 (98) 98 Room Air 01/16/17 22:13 68 18 138/80 98 01/16/17 21:32 76 01/16/17 20:54 67 18 150/79 98 Room Air 01/16/17 17:54 78 16 98 Room Air 01/16/17 17:04 87 01/16/17 16:27 80 18 142/77 98 Room Air 01/16/17 14:38 36.5 71 16 153/90 99 Room Air Lab Results: Results Past 24 Hours Test 01/16/17 15:27 01/16/17 15:46 01/16/17 16:35 01/16/17 18:49 Range/Units White Blood Count 9.25 4.8-10.8 K/uL Red Blood Count 4.96 4.7-6.1 M/uL Hemoglobin 15.2 14.0-18.0 g/dL Hematocrit 44.5 42-52 % Mean Corpuscular Volume 89.7 80-100 fL Mean Corpuscular Hemoglobin 30.6 25-34 pg Mean Corpuscular Hemoglobin Concent 34.2 32-36 g/dl Platelet Count 259 130-400 K/uL Mean Platelet Volume 9.9 7.4-10.4 fL Neutrophils (%) (Auto) 60.7 % Lymphocytes (%) (Auto) 31.0 % Monocytes (%) (Auto) 6.7 % Eosinophils (%) (Auto) 1.2 % Basophils (%) (Auto) 0.3 % Neutrophils # (Auto) 5.61 1.4-6.5 K/uL Lymphocytes # (Auto) 2.87 1.2-3.4 K/uL Monocytes # (Auto) 0.62 0.11-0.59 K/uL Eosinophils # (Auto) 0.11 0-0.5 K/uL Basophils # (Auto) 0.03 0-0.2 K/uL RDW Standard Deviation 46.9 36.4-46.3 fL RDW Coefficient of Variation 14.2 11.5-14.5 % Immature Granulocyte % (Auto) 0.1 % Immature Granulocyte # (Auto) 0.01 0.00-0.02 K/uL Sodium Level 142 136-145 mmol/L Potassium Level 3.8 3.5-5.1 mmol/L Chloride Level 107 98-107 mmol/L Carbon Dioxide Level 29 21-32 mmol/L Anion Gap 6.0 17.0 16-25 mmol/L Blood Urea Nitrogen 9 7-18 mg/dl Creatinine 0.81 0.60-1.40 mg/dl Est Creatinine Clear Calc Drug Dose 157.6 ml/min Estimated GFR () 136.3 Estimated GFR (Non- 117.6 BUN/Creatinine Ratio 10.7 10-20 Random Glucose 75 70-99 mg/dl Calcium Level 8.9 8.5-10.1 mg/dl Total Bilirubin 0.5 0.2-1 mg/dl Direct Bilirubin 0.2 0-0.2 mg/dl Aspartate Amino Transf (AST/SGOT) 12 15-37 U/L Alanine Aminotransferase (ALT/SGPT) 35 12-78 U/L Alkaline Phosphatase 82 45-117 U/L Total Protein 7.5 6.4-8.2 gm/dl Albumin 3.8 3.4-5.0 gm/dl Lipase 88 73-393 U/L Bedside Hemoglobin 15.6 14.0-18.0 g/dl Bedside Hematocrit 46 42-52 % Bedside Sodium 142 135-144 mEq/L Bedside Potassium 3.8 3.3-5.0 mEq/L Bedside Chloride 102 101-112 mEq/L Bedside Total CO2 28 24-31 mEq/l Bedside Blood Urea Nitrogen 8 7-18 mg/dl Bedside Creatinine 0.8 0.6-1.3 mg/dl Bedside Glucose (other) 75 70-99 mg/dl Bedside Ionized Calcium ([place]) 1.20 1.12-1.32 mmol/l Urine Color YELLOW Urine Appearance CLEAR CLEAR Urine pH 6.5 4.5-7.5 Urine Specific Langston 1.011 1.000-1.030 Urine Protein NEG NEG Urine Glucose (UA) NEG NEG Urine Ketones NEG NEG Urine Occult Blood NEG NEG Urine Nitrite NEG NEG Urine Bilirubin NEG NEG Urine Urobilinogen NEG NEG Urine Leukocyte Esterase NEG NEG Bedside Lactic Acid Venous 0.54 0.90-1.70 mmol/L Test 01/17/17 10:23 Range/Units White Blood Count 6.48 4.8-10.8 K/uL Red Blood Count 4.44 4.7-6.1 M/uL Hemoglobin 13.4 14.0-18.0 g/dL Hematocrit 40.6 42-52 % Mean Corpuscular Volume 91.4 80-100 fL Mean Corpuscular Hemoglobin 30.2 25-34 pg Mean Corpuscular Hemoglobin Concent 33.0 32-36 g/dl Platelet Count 215 130-400 K/uL Mean Platelet Volume 9.5 7.4-10.4 fL Neutrophils (%) (Auto) 54.4 % Lymphocytes (%) (Auto) 33.6 % Monocytes (%) (Auto) 8.8 % Eosinophils (%) (Auto) 2.2 % Basophils (%) (Auto) 0.8 % Neutrophils # (Auto) 3.53 1.4-6.5 K/uL Lymphocytes # (Auto) 2.18 1.2-3.4 K/uL Monocytes # (Auto) 0.57 0.11-0.59 K/uL Eosinophils # (Auto) 0.14 0-0.5 K/uL Basophils # (Auto) 0.05 0-0.2 K/uL RDW Standard Deviation 48.4 36.4-46.3 fL RDW Coefficient of Variation 14.3 11.5-14.5 % Immature Granulocyte % (Auto) 0.2 % Immature Granulocyte # (Auto) 0.01 0.00-0.02 K/uL Sodium Level 140 136-145 mmol/L Potassium Level 3.9 3.5-5.1 mmol/L Chloride Level 108 98-107 mmol/L Carbon Dioxide Level 27 21-32 mmol/L Anion Gap 5.0 3-11 mmol/L Blood Urea Nitrogen 6 7-18 mg/dl Creatinine 0.82 0.60-1.40 mg/dl Est Creatinine Clear Calc Drug Dose 155.7 ml/min Estimated GFR () 135.6 Estimated GFR (Non- 117.0 BUN/Creatinine Ratio 7.6 10-20 Random Glucose 124 70-99 mg/dl Lactic Acid Level 0.7 0.4-2.0 mmol/L Calcium Level 8.1 8.5-10.1 mg/dl Magnesium Level 1.8 1.8-2.4 mg/dl Total Bilirubin 0.5 0.2-1 mg/dl Aspartate Amino Transf (AST/SGOT) 11 15-37 U/L Alanine Aminotransferase (ALT/SGPT) 25 12-78 U/L Alkaline Phosphatase 66 45-117 U/L Total Creatine Kinase 41 39-308 U/L Creatine Kinase MB < 0.5 0.5-3.6 ng/ml Creatine Kinase MB Ratio 0-3.0 Troponin I < 0.015 0-0.045 ng/ml Total Protein 5.9 6.4-8.2 gm/dl Albumin 3.1 3.4-5.0 gm/dl Globulin 2.8 2.5-4.0 gm/dl Albumin/Globulin Ratio 1.1 0.9-2 Thyroid Stimulating Hormone (TSH) 2.120 0.300-4.500 uIu/ml Thyroxine (T4) 8.0 4.5-10.9 mcg/dl
--- NOTE | 2017-01-17 15:16 | CARDIOLOGY CONSULTATION ---
DATE OF CONSULTATION: 01/17/2017 CONSULTATION REQUESTED BY: Dr. lSoan. REASON FOR CONSULTATION: Chest pain and palpitations. HISTORY OF PRESENT ILLNESS: Mr. Cheema is a very pleasant 31-year-old gentleman, who presented to [facility] on 01/16/2017 with a complaint of abdominal pain. Of note, the patient is deaf and communication was through handwritten notes. The patient was recently admitted to [facility] in December for abdominal discomfort, at which time he underwent appendectomy. Postoperative course was complicated by postoperative ileus. Otherwise, the patient did well. After being returned to [facility], he had further complaints of abdominal pain and again presented back to [facility] Emergency Department on the . While on the floor, the patient had a very severe sharp abdominal pain that seemed to radiate up through his abdomen, into his chest and down both of his arms. This was associated with sensation of his heart racing in his chest. At that time, the patient was evaluated and an EKG was performed, which was unremarkable and he was transferred to telemetry. The patient states he has had similar episodes since being on telemetry, but luckily, there are no arrhythmias on monitoring. He continues to have abdominal discomfort that is only somewhat relieved with medications. PAST SURGICAL HISTORY: Appendectomy. MEDICAL ILLNESSES: 1. Tobacco abuse, resolved. 2. Postoperative ileus. FAMILY HISTORY: Remarkable for father developed coronary artery disease. SOCIAL HISTORY: The patient is a former smoker, quit in 2015. Denies alcohol or recreational drug use. He is currently incarcerated at [facility]. REVIEW OF SYSTEMS: As per HPI. All other review of systems reviewed and negative at this time. ALLERGIES: No known drug allergies. MEDICATIONS AN OUTPATIENT: None. PHYSICAL EXAMINATION: VITAL SIGNS: Temperature 36.5, pulse 52, respiratory rate 12, and blood pressure 123/75. GENERAL: Awake, alert, and oriented x3 in no acute distress. HEENT: Normocephalic and atraumatic. Pupils equal, round, and reactive to light and accommodation. Extraocular muscles intact. Anicteric sclerae. Moist mucous membranes. NECK: No JVD and no bruit. CARDIOVASCULAR: Regular. No S4. Normal S1 and S2. No S3. No murmurs, rubs or gallops. PULMONARY: Clear to auscultation bilaterally. No rales, rhonchi, or wheezing. ABDOMEN: Bowel sounds x4. Soft. No rebound, guarding, or tenderness. No organomegaly. EXTREMITIES: No clubbing, cyanosis or edema. +2 pedal pulses bilaterally. SKIN: Warm and dry. TEST RESULTS: A 12-lead EKG performed on the 6th, independently reviewed at this time shows normal sinus rhythm at 67 beats per minute, early repolarization pattern, essentially normal study. IMPRESSION: 1. Chest pain. 2. Palpitations. 3. Ongoing abdominal pain. RECOMMENDATIONS: It was my pleasure to see Mr. Cheema in consultation today. From a cardiac standpoint, I believe that his chest pain is most likely radiating from his abdomen and I highly doubt any cardiac origin. So for completeness sake, a 2D echocardiogram will be performed to evaluate for any structural abnormalities. Also, the patient will be monitored on telemetry overnight and again, I suspect his palpitations are due to stress with the pain and likely do not represent any arrhythmias. Otherwise, no medications will be started from my standpoint. JOSE MANUEL
--- NOTE | 2017-01-17 15:43 | DIAGNOSTIC IMAGING REPORT ---
ABDOMEN COMPLETE (US) CLINICAL HISTORY: 31 years-old Male with abdominal pain. Acute generalized abdominal pain. Prior appendectomy. TECHNIQUE: Multiple real time sonographic images of the abdomen were obtained assessing grant-scale appearance. FINDINGS: Study is mildly limited secondary to patient cooperation. PANCREAS: The pancreas is partially obscured by bowel gas. The visualized portions of the pancreas are normal without focal lesion or pancreatic duct dilatation. LIVER: The liver is mildly echogenic ingesting possible fatty infiltration. Liver measures 18.3 cm in length. There is no intrahepatic bile duct dilation, focal lesion, or contour nodularity. There is no ascites. GALLBLADDER: Stone filled gallbladder noted with posterior acoustic shadowing. Gallstones are seen within the region of the gallbladder neck. Gallbladder wall measures in the upper limits of normal at 0.3 cm. No definite pericholecystic fluid collections.. Positive sonographic Garcia's sign. The common bile duct measures 0.5 cm. RIGHT KIDNEY: The right kidney measures 10.1 x 4.2 x 5.0 cm The parenchymal echotexture and cortical thickness are normal. No nephrolithiasis or hydronephrosis. LEFT KIDNEY: The left kidney measures 11.0 x 5.5 x 5.2 cm The parenchymal echotexture and cortical thickness are normal. No nephrolithiasis or hydronephrosis. SPLEEN: The spleen measures 12.2 cm and is normal in echotexture. No focal lesions are identified. VASCULATURE: The visualized aorta and inferior vena cava are sub-visualized although appear normal as seen. IMPRESSION: 1. Cholelithiasis with gallbladder wall measuring in the upper limits of normal, and positive sonographic Garcia's sign is suspicious for possible acute cholecystitis. Close clinical correlation is needed. 2. No biliary ductal dilation. 3. Suggested mild fatty infiltration of the liver. The above report was generated using voice recognition software. It may contain grammatical, syntax or spelling errors. Electronically signed by: Joe Mcgarry M.D. 01/17/2017 3:41 PM Dictated Date/Time: 01/17/2017 3:35 PM
[2017-01-17 16:46] LABS: BASO % 0.5 %; BASO ABS # 0.04 K/uL (0-0.2); COMPLETE YES; EOS % 1.6 %; HEMATOCRIT 40.9 % (42-52); IG% 0.1 %; LYMPH % 28.3 %; LYMPH ABS # 2.09 K/uL (1.2-3.4); MEAN CELL VOLUME 90.9 fL (80-100); MEAN PLATELET VOLUME 9.8 fL (7.4-10.4); MONO % 6.6 %; NEUT % 62.9 %; PLATELET COUNT 207 K/uL (130-400); WHITE BLOOD COUNT 7.39 K/uL (4.8-10.8)
[2017-01-17] MEDS: GABAPENTIN 600 MG TAB PO SCH (21:02)
[2017-01-18] VITALS (7 sets, daily range): BP systolic 115–145; BP diastolic 69–90; PULSE 52–67; TEMP 36.6–36.8; O2SAT 97–99
[2017-01-18] MEDS: ACETAMINOPHEN 500 MG TAB PO SCH ×2 (04:06→11:14)
[2017-01-18] MEDS: TRAMADOL HCL 50 MG TAB PO SCH ×2 (04:06→11:13)
[2017-01-18 07:06] LABS: BUN/CREATININE RATIO 8.1 (10-20); CALCIUM 8.3 mg/dl (8.5-10.1); CREATININE 0.73 mg/dl (0.60-1.40); POTASSIUM 4.2 mmol/L (3.5-5.1)
[2017-01-18 07:08] LABS: BASO % 1.1 %; BASO ABS # 0.07 K/uL (0-0.2); COMPLETE YES; EOS % 3.1 %; HEMATOCRIT 40.4 % (42-52); IG% 0.2 %; LYMPH ABS # 2.56 K/uL (1.2-3.4); MEAN CELL VOLUME 91.2 fL (80-100); MEAN CORPUSCULAR HEMOGLOBIN 29.1 pg (25-34); MEAN CORPUSCULAR HGB CONC 31.9 g/dl (32-36); MEAN PLATELET VOLUME 9.8 fL (7.4-10.4); MONO % 9.5 %; NEUT % 44.1 %; PLATELET COUNT 222 K/uL (130-400); RED BLOOD COUNT 4.43 M/uL (4.7-6.1); WHITE BLOOD COUNT 6.09 K/uL (4.8-10.8)
[2017-01-18] MEDS: MoRPHine SULFATE 4 MG/ML 1 ML CARP\\VIAL IV PRN ×2 (07:54→12:21)
[2017-01-18] MEDS: GABAPENTIN 600 MG TAB PO SCH (07:54)
[2017-01-18] MEDS: FAMOTIDINE IV INJ 20 MG in DEXTROSE 5% 100ML 100 ML IV SCH (09:51)
--- NOTE | 2017-01-18 10:51 | ECHOCARDIOGRAM REPORT ---
*NOTICE TO RECEIVING LIBERTARIAN AGENCY This information is strictly Confidential and protected under [place] law. [place] law prohibits you from making any further disclosure of this information unless further disclosure is expressly permitted by the written consent of the person to whom it pertains or is authorized by law. A general authorization for the release of medical or other information is not sufficient for this purpose. Hospital accepts no responsibility if the information is made available to any other person, INCLUDING THE PATIENT. Interpretation Summary * Name: DARNELL FITCH [id number] Study Date: 01/17/2017 03:42 PM BP: 123/75 mmHg * Patient Location: .2E\S\E212\S\1 HR: 59 * : 1985 (M/d/yyyy) Gender: Male Height: 69 in * Age: 31 yrs Ethnicity: CA Weight: 235 lb * Ordering Physician: Olivier Bates * Referring Physician: [facility] * Performed By: Jennifer Telles [facility] * * Reason For Study: CHEST PAIN * BSA: 2.2 m2 * -- Conclusions -- * Normal LV chamber size with borderline concentric LVH. * Normal LV systolic function, EF 60-65%. * No segmental left ventricular wall motion abnormalities are noted. * Normal diastolic function. * No significant valvular pathology. Procedure Details * A complete two-dimensional transthoracic echocardiogram was performed (2D, M-mode, Doppler and color flow Doppler). Left Ventricle * The left ventricle is normal in size. * There is normal left ventricular wall thickness. * Left ventricular systolic function is normal. * No segmental left ventricular wall motion abnormalities are noted. * Ejection Fraction = 60-65%. * The left ventricular wall motion is normal. Right Ventricle * The right ventricular cavity size is normal (basal dimension <4.2 cm in right ventricular apical 4-chamber view). * The right ventricular systolic function is normal as assessed by tricuspid annular plane systolic excursion (TAPSE) (normal >1.5 cm). Atria * The left atrial size is normal. * Right atrial size is normal. * No ASD detected; PFO is not assessed. Mitral Valve * The mitral valve is normal in structure and function. Tricuspid Valve * The tricuspid valve is normal in structure and function. Aortic Valve * The aortic valve is normal in structure and function. Pulmonic Valve * The pulmonary valve is not well seen, but the Doppler examination is normal without significant regurgitation or stenosis. Great Vessels * The aortic root is normal size. Pericardium/Pleural * There is no pericardial effusion. Left Ventricular Diastolic Function * Pulse wave TDI of the anterior and posterior mitral annulas demonstrates normal LV relaxation MMode 2D Measurements and Calculations IVSd 1.1 cm IVSs 1.5 cm LVIDd 5.2 cm LVIDs 4.1 cm LVPWd 1.1 cm LVPWs 1.2 cm IVS/LVPW 1.0 FS 21.5 % EDV(Teich) 129.4 ml ESV(Teich) 73.5 ml EF(Teich) 43.2 % EDV(cubed) 140.5 ml ESV(cubed) 68.1 ml EF(cubed) 51.5 % % IVS thick 33.9 % % LVPW thick 15.0 % LV mass(C)d 220.9 grams LV mass(C)dI 99.9 grams/m\S\2 LV mass(C)s 208.7 grams LV mass(C)sI 94.3 grams/m\S\2 SV(Teich) 55.9 ml SI(Teich) 25.3 ml/m\S\2 SV(cubed) 72.4 ml SI(cubed) 32.7 ml/m\S\2 Ao root diam 3.6 cm Ao root area 10.0 cm\S\2 LA dimension 3.4 cm LA/Ao 0.97 LVOT diam 1.9 cm LVOT area 2.9 cm\S\2 Doppler Measurements and Calculations MV E max apoorva 91.1 cm/sec MV A max apoorva 52.8 cm/sec MV E/A 1.7 MV P1/2t max apoorva 114.7 cm/sec MV P1/2t 108.8 msec MVA(P1/2t) 2.0 cm\S\2 MV dec slope 309.0 cm/sec\S\2 MV dec time 0.31 sec Ao V2 max 118.1 cm/sec Ao max PG 5.6 mmHg Ao max PG (full) 0.99 mmHg NATHAYL(V,A) 2.6 cm\S\2 NATHALY(V,D) 2.6 cm\S\2 LV V1 max PG 4.6 mmHg LV V1 max 107.2 cm/sec PA V2 max 106.1 cm/sec PA max PG 4.5 mmHg TR max apoorva 238.2 cm/sec
--- NOTE | 2017-01-18 11:17 | Surgery Progress Note ---
Surgery Progress Note Date of Service Jan 18, 2017. Subjective Patient examined at bedside this morning. Afebrile, vitals stable overnight on room air, no acute events. Sleeping comfortably on arrival. When awakened, continues to complain of 9/10 pain in a spot just right of midline in lower abdomen. Tolerating diet without N/V. Has burning sensation at the site of pain with urination. Having BMs. Continues to endorse dizziness and palpitations with ambulation. Objective Vital Signs: Date Time Temp Pulse Resp B/P (MAP) Pulse Ox O2 Delivery O2 Flow Rate FiO2 01/18/17 08:29 97 Room Air 01/18/17 08:02 36.8 60 18 130/80 (97) 99 Room Air 01/18/17 04:00 Room Air 01/18/17 03:40 36.7 52 16 115/69 (84) 97 Room Air 01/18/17 00:00 Room Air 01/17/17 23:45 36.7 59 20 131/88 (102) 100 Room Air 01/17/17 20:40 36.7 60 18 125/66 (85) 98 Room Air 01/17/17 20:00 Room Air 01/17/17 16:37 37.1 55 18 123/75 (91) 98 Room Air 01/17/17 16:01 97 Room Air 01/17/17 12:01 97 Room Air General Appearance: WD/WN, no apparent distress Head: normocephalic Neck: supple Respiratory/Chest: lungs clear, normal breath sounds Cardiovascular: regular rate, rhythm Abdomen: normal bowel sounds (no rebound / guarding), non distended, soft, + tenderness (tender to palpation in lower abdomen just right of midline) Incision(s): clean, dry, intact Extremities: normal range of motion Laboratory Results: Results Past 24 Hours Test 01/17/17 16:23 01/17/17 22:14 01/18/17 05:50 Range/Units White Blood Count 7.39 6.09 4.8-10.8 K/uL Red Blood Count 4.50 4.43 4.7-6.1 M/uL Hemoglobin 13.5 12.9 14.0-18.0 g/dL Hematocrit 40.9 40.4 42-52 % Mean Corpuscular Volume 90.9 91.2 80-100 fL Mean Corpuscular Hemoglobin 30.0 29.1 25-34 pg Mean Corpuscular Hemoglobin Concent 33.0 31.9 32-36 g/dl Platelet Count 207 222 130-400 K/uL Mean Platelet Volume 9.8 9.8 7.4-10.4 fL Neutrophils (%) (Auto) 62.9 44.1 % Lymphocytes (%) (Auto) 28.3 42.0 % Monocytes (%) (Auto) 6.6 9.5 % Eosinophils (%) (Auto) 1.6 3.1 % Basophils (%) (Auto) 0.5 1.1 % Neutrophils # (Auto) 4.64 2.68 1.4-6.5 K/uL Lymphocytes # (Auto) 2.09 2.56 1.2-3.4 K/uL Monocytes # (Auto) 0.49 0.58 0.11-0.59 K/uL Eosinophils # (Auto) 0.12 0.19 0-0.5 K/uL Basophils # (Auto) 0.04 0.07 0-0.2 K/uL RDW Standard Deviation 47.0 47.5 36.4-46.3 fL RDW Coefficient of Variation 14.1 14.2 11.5-14.5 % Immature Granulocyte % (Auto) 0.1 0.2 % Immature Granulocyte # (Auto) 0.01 0.01 0.00-0.02 K/uL Troponin I < 0.015 < 0.015 0-0.045 ng/ml Sodium Level 143 136-145 mmol/L Potassium Level 4.2 3.5-5.1 mmol/L Chloride Level 109 98-107 mmol/L Carbon Dioxide Level 31 21-32 mmol/L Anion Gap 3.0 3-11 mmol/L Blood Urea Nitrogen 6 7-18 mg/dl Creatinine 0.73 0.60-1.40 mg/dl Est Creatinine Clear Calc Drug Dose 173.7 ml/min Estimated GFR () 142.2 Estimated GFR (Non- 122.7 BUN/Creatinine Ratio 8.1 10-20 Random Glucose 73 70-99 mg/dl Calcium Level 8.3 8.5-10.1 mg/dl Total Bilirubin 0.5 0.2-1 mg/dl Aspartate Amino Transf (AST/SGOT) 14 15-37 U/L Alanine Aminotransferase (ALT/SGPT) 30 12-78 U/L Alkaline Phosphatase 63 45-117 U/L Total Protein 5.9 6.4-8.2 gm/dl Albumin 3.0 3.4-5.0 gm/dl Globulin 2.9 2.5-4.0 gm/dl Albumin/Globulin Ratio 1.0 0.9-2 01/17/17 Abdominal U/S: IMPRESSION: 1. Cholelithiasis with gallbladder wall measuring in the upper limits of normal, and positive sonographic Garcia's sign is suspicious for possible acute cholecystitis. Close clinical correlation is needed. 2. No biliary ductal dilation. 3. Suggested mild fatty infiltration of the liver. Assessment & Plan Johnny Cheema is a 31 year old man who is s/p lap appy on 12/21/16 for non- perforated appendicitis with subsequent ileus (resolved non operatively) who was admitted with RLQ / pelvic pain, palpitations and dizziness with ambulation. Remains afebrile, hemodynamically stable and normal. Has not had any leukocytosis or other lab abnormalities. UA is negative for UTI. 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 No abscesses or drainable collections, no signs of obstruction or perforation. U/S from yesterday reviewed - cholelithiasis, but no wall thickening or pericholecystic fluid. Patient's symptoms do not seem consistent with biliary disorder. LFTs today reviewed, no elevation in bilirubin or LFTs to suggest biliary obstruction. Do not think patient's persistent low abdominal pain is related to biliary problem. -No acute surgical intervention indicated at this time -Unclear source of pain - no abscesses to drain, no obstruction / perforation -Cardiac workup per primary team -IVF, pain control as needed -Regular diet as tolerated -Rest of plan per primary team -Will continue to follow Basia Camara MD 01/18/17
--- NOTE | 2017-01-18 12:14 | Cardiology Follow-Up ---
Subjective Subjective Date of Service: Jan 18, 2017. Pt evaluation today including: conversation w/ patient, physical exam, chart review, lab review, review of studies, review of inpatient medication list Additional Details: Pt seen and examined, communicated through writing. Still with lower quadrant abdominal pain. Now only radiates to chest when severe. Still with heart racing with pain but no arrhythmias on monitor. Tele reviewed: sinus rhythm without arrhythmia or significant ectopy. Problem List Medical Problems: (1) Appendicitis Status: Acute (2) Generalized abdominal pain Status: Acute (3) Omental infarction Status: Acute (4) Right lower quadrant pain Status: Acute Review of Systems Respiratory: No see HPI, No cough, No sputum, No wheezing, No shortness of breath, No dyspnea on exertion, No dyspnea at rest, No hemoptysis, No problem reported Cardiac: + chest pain, + palpitations, No see HPI, No orthopnea, No PND, No edema, No claudication, No problem reported Objective Vital Signs Last Vital Signs Documentation Date Time Temp Pulse Resp B/P (MAP) Pulse Ox O2 Delivery O2 Flow Rate FiO2 01/18/17 12:07 97 Room Air 01/18/17 11:27 36.6 60 18 145/88 (107) Physical Exam: General Appearance: WD/WN, no apparent distress Eyes: bilateral eyes normal inspection, bilateral eyes PERRL, bilateral eyes EOMI ENT: normal ENT inspection, hearing grossly normal, pharynx normal Neck: supple, no adenopathy, thyroid normal, no JVD, no carotid bruits, trachea midline Respiratory/Chest: chest non-tender, lungs clear, normal breath sounds, no respiratory distress, no accessory muscle use Cardiovascular: regular rate, rhythm, no edema, no gallop, no JVD, no murmur Abdomen: normal bowel sounds, + tenderness Extremities: non-tender, normal inspection, no pedal edema, no calf tenderness Neurologic/Psychiatric: housekeeping aide II-XII nml as tested, no motor/sensory deficits, alert, normal mood/affect, oriented x 3 Skin: normal color, warm/dry, no rash Lymphatic: no adenopathy Assessment and Plan 1. chest pain noncardiac possible radiation from abdomen structurally normal heart on echo no sign of ischemia 2. palpitations correlate with normal sinus rhythm on monitor no cardiac source of symptoms, will sign off, please call with questions or concerns ok to d/c tele
[2017-01-18] MEDS: OXYCODONE/ACETAMINOPHEN 5-325 TAB PO PRN (12:21)
--- NOTE | 2017-01-18 13:34 | Progress Note ---
Internal Med Progress Note Date of Service: Jan 18, 2017. Provider Documentation: SUBJECTIVE: Connected with neon sign mechanic service to assist in communicating with deaf patient. Patient has had yesterday report that he has been having right lower quadrant abdominal pain and associated with feeling like his heart is racing and sharp pain on chest. Continues to have these discomfort and pain with urination. He has negative cardiac workup for myocardial infarction. Tachycardia has not been picked up by telemetry monitoring. UA negative for bacteria. Ultrasound positive for gallstones. Discussed with surgeon that surgery is not indicated at this time. I have explained to the patient these findings through the neon sign mechanic service and he expresses understanding of his health. I recommended to him to drink a lot of water, avoid fatty foods, and will be given pain control medications on discharge. OBJECTIVE: General- hearing impaired and communicates with sign language Eyes- EOMI ENT - no exudates or bleeding Neck- no JVD, no addible bruits of the neck, trachea midline Lungs- clear to auscultation bilaterally Heart- regular rate, radial pulse is regular, rhythm appears to be in sinus Abdomen-when palpating right lower quadrant of abdomen patient grimaces and expresses acute tenderness, points to overlap of pain of right lower quadrant to bladder but nontender on palpation of bladder area Extremities- no edema, nontender, Neuro- awake and alert, communicates by sign language ASSESSMENT & PLAN: 31 year old man who is s/p laparoscopy on 12/21/16 for non-perforated appendicitis with subsequent ileus (resolved non operatively) who presents with 2 days of RLQ / pelvic pain. On admission patient Afebrile, hemodynamically stable and normal. No leukocytosis or other lab abnormalities. UA is negative for UTI. CT scan completed Radiology impressions 1. Continued interval evolution of postsurgical/postinflammatory changes with resolving phlegmon in the pelvis/left lower quadrant. No new abscess. 2. Stable to slight interval increase in focal infiltration of the fat along the right colon, which could suggest involving omental infarct. 3. Post surgical changes of appendectomy. as per general surgery impression: ,shows post operative changes from appendectomy, possible concern for omental infarct. No abscesses or drainable collections, no signs of obstruction or perforation. Abdominal ultrasound significant for gallstones but no dilation of bile ducts PANCREAS: The pancreas is partially obscured by bowel gas. The visualized portions of the pancreas are normal without focal lesion or pancreatic duct dilatation. LIVER: The liver is mildly echogenic ingesting possible fatty infiltration. Liver measures 18.3 cm in length. There is no intrahepatic bile duct dilation, focal lesion, or contour nodularity. There is no ascites. GALLBLADDER: Stone filled gallbladder noted with posterior acoustic shadowing. Gallstones are seen within the region of the gallbladder neck. Gallbladder wall measures in the upper limits of normal at 0.3 cm. No definite pericholecystic fluid collections.. Positive sonographic Garcia's sign. The common bile duct measures 0.5 cm. RIGHT KIDNEY: The right kidney measures 10.1 x 4.2 x 5.0 cm The parenchymal echotexture and cortical thickness are normal. No nephrolithiasis or hydronephrosis. LEFT KIDNEY: The left kidney measures 11.0 x 5.5 x 5.2 cm The parenchymal echotexture and cortical thickness are normal. No nephrolithiasis or hydronephrosis. SPLEEN: The spleen measures 12.2 cm and is normal in echotexture. No focal lesions are identified. VASCULATURE: The visualized aorta and inferior vena cava are sub-visualized although appear normal as seen. As per general surgery there is no acute surgical intervention indicated at this time for abdominal complaints No cardiac history in a young adult, but patient also noted pain radiates up into his chest and causes palpitations troponins negative x 3 transferred to telemetry for monitoring and no arrhythmia or tachycardia found transthoracic echo ordered: normal results * Normal LV chamber size with borderline concentric LVH. * Normal LV systolic function, EF 60-65%. * No segmental left ventricular wall motion abnormalities are noted. * Normal diastolic function. * No significant valvular pathology. Procedure Details * A complete two-dimensional transthoracic echocardiogram was performed (2D, M-mode, Doppler and color flow Doppler). Left Ventricle * The left ventricle is normal in size. * There is normal left ventricular wall thickness. * Left ventricular systolic function is normal. * No segmental left ventricular wall motion abnormalities are noted. * Ejection Fraction = 60-65%. * The left ventricular wall motion is normal. Right Ventricle * The right ventricular cavity size is normal (basal dimension <4.2 cm in right ventricular apical 4-chamber view). * The right ventricular systolic function is normal as assessed by tricuspid annular plane systolic excursion (TAPSE) (normal >1.5 cm). Atria * The left atrial size is normal. * Right atrial size is normal. * No ASD detected; PFO is not assessed. Mitral Valve * The mitral valve is normal in structure and function. Tricuspid Valve * The tricuspid valve is normal in structure and function. Aortic Valve * The aortic valve is normal in structure and function. Pulmonic Valve * The pulmonary valve is not well seen, but the Doppler examination is normal without significant regurgitation or stenosis. Great Vessels * The aortic root is normal size. Pericardium/Pleural * There is no pericardial effusion. Left Ventricular Diastolic Function * Pulse wave TDI of the anterior and posterior mitral annulas demonstrates normal LV relaxation Cardiology physician evaluated the patient and did not find evidence for cardiac chest pain PCP: [facility] Disposition: Return to [facility] with prescriptions for non-narcotic pain medications, patient advised drink a lot of water, avoid fatty foods, follow up with primary care doctor for follow up and if needed for referral for surgery clinic. However based on the evaluation as inpatient, there is no urgent surgical intervention for the gallstones at this time. Vital Signs: Date Time Temp Pulse Resp B/P (MAP) Pulse Ox O2 Delivery O2 Flow Rate FiO2 01/18/17 12:07 97 Room Air 01/18/17 11:27 36.6 60 18 145/88 (107) 98 Room Air 01/18/17 08:29 97 Room Air 01/18/17 08:02 36.8 60 18 130/80 (97) 99 Room Air 01/18/17 04:00 Room Air 01/18/17 03:40 36.7 52 16 115/69 (84) 97 Room Air 01/18/17 00:00 Room Air 01/17/17 23:45 36.7 59 20 131/88 (102) 100 Room Air 01/17/17 20:40 36.7 60 18 125/66 (85) 98 Room Air 01/17/17 20:00 Room Air 01/17/17 16:37 37.1 55 18 123/75 (91) 98 Room Air 01/17/17 16:01 97 Room Air Lab Results: Results Past 24 Hours Test 01/17/17 16:23 01/17/17 22:14 01/18/17 05:50 Range/Units White Blood Count 7.39 6.09 4.8-10.8 K/uL Red Blood Count 4.50 4.43 4.7-6.1 M/uL Hemoglobin 13.5 12.9 14.0-18.0 g/dL Hematocrit 40.9 40.4 42-52 % Mean Corpuscular Volume 90.9 91.2 80-100 fL Mean Corpuscular Hemoglobin 30.0 29.1 25-34 pg Mean Corpuscular Hemoglobin Concent 33.0 31.9 32-36 g/dl Platelet Count 207 222 130-400 K/uL Mean Platelet Volume 9.8 9.8 7.4-10.4 fL Neutrophils (%) (Auto) 62.9 44.1 % Lymphocytes (%) (Auto) 28.3 42.0 % Monocytes (%) (Auto) 6.6 9.5 % Eosinophils (%) (Auto) 1.6 3.1 % Basophils (%) (Auto) 0.5 1.1 % Neutrophils # (Auto) 4.64 2.68 1.4-6.5 K/uL Lymphocytes # (Auto) 2.09 2.56 1.2-3.4 K/uL Monocytes # (Auto) 0.49 0.58 0.11-0.59 K/uL Eosinophils # (Auto) 0.12 0.19 0-0.5 K/uL Basophils # (Auto) 0.04 0.07 0-0.2 K/uL RDW Standard Deviation 47.0 47.5 36.4-46.3 fL RDW Coefficient of Variation 14.1 14.2 11.5-14.5 % Immature Granulocyte % (Auto) 0.1 0.2 % Immature Granulocyte # (Auto) 0.01 0.01 0.00-0.02 K/uL Troponin I < 0.015 < 0.015 0-0.045 ng/ml Sodium Level 143 136-145 mmol/L Potassium Level 4.2 3.5-5.1 mmol/L Chloride Level 109 98-107 mmol/L Carbon Dioxide Level 31 21-32 mmol/L Anion Gap 3.0 3-11 mmol/L Blood Urea Nitrogen 6 7-18 mg/dl Creatinine 0.73 0.60-1.40 mg/dl Est Creatinine Clear Calc Drug Dose 173.7 ml/min Estimated GFR () 142.2 Estimated GFR (Non- 122.7 BUN/Creatinine Ratio 8.1 10-20 Random Glucose 73 70-99 mg/dl Calcium Level 8.3 8.5-10.1 mg/dl Total Bilirubin 0.5 0.2-1 mg/dl Aspartate Amino Transf (AST/SGOT) 14 15-37 U/L Alanine Aminotransferase (ALT/SGPT) 30 12-78 U/L Alkaline Phosphatase 63 45-117 U/L Total Protein 5.9 6.4-8.2 gm/dl Albumin 3.0 3.4-5.0 gm/dl Globulin 2.9 2.5-4.0 gm/dl Albumin/Globulin Ratio 1.0 0.9-2
[2017-01-18] MEDS ORDERED: IBUP-1459 PO (13:37)
--- NOTE | 2017-01-18 13:39 | Discharge Instructions ---
Discharge Instructions Date of Service Jan 18, 2017. Admission Reason for Admission: Right Lower Quadrant Pain Discharge Discharge Diagnosis / Problem: gallstones, abdominal pain, palpitations, chest pain Discharge Goals Goal(s): Decrease discomfort, Improve function, Increase independence Activity Recommendations Activity Limitations: resume your previous activity Exercise/Sports Limitations: as tolerated . Instructions / Follow-Up Instructions / Follow-Up 31 year old man who is s/p laparoscopy on 12/21/16 for non-perforated appendicitis with subsequent ileus (resolved non operatively) who presents with 2 days of RLQ / pelvic pain. On admission patient Afebrile, hemodynamically stable and normal. No leukocytosis or other lab abnormalities. UA is negative for UTI. CT scan completed Radiology impressions 1. Continued interval evolution of postsurgical/postinflammatory changes with resolving phlegmon in the pelvis/left lower quadrant. No new abscess. 2. Stable to slight interval increase in focal infiltration of the fat along the right colon, which could suggest involving omental infarct. 3. Post surgical changes of appendectomy. as per general surgery impression: ,shows post operative changes from appendectomy, possible concern for omental infarct. No abscesses or drainable collections, no signs of obstruction or perforation. Abdominal ultrasound significant for gallstones but no dilation of bile ducts PANCREAS: The pancreas is partially obscured by bowel gas. The visualized portions of the pancreas are normal without focal lesion or pancreatic duct dilatation. LIVER: The liver is mildly echogenic ingesting possible fatty infiltration. Liver measures 18.3 cm in length. There is no intrahepatic bile duct dilation, focal lesion, or contour nodularity. There is no ascites. GALLBLADDER: Stone filled gallbladder noted with posterior acoustic shadowing. Gallstones are seen within the region of the gallbladder neck. Gallbladder wall measures in the upper limits of normal at 0.3 cm. No definite pericholecystic fluid collections.. Positive sonographic Garcia's sign. The common bile duct measures 0.5 cm. RIGHT KIDNEY: The right kidney measures 10.1 x 4.2 x 5.0 cm The parenchymal echotexture and cortical thickness are normal. No nephrolithiasis or hydronephrosis. LEFT KIDNEY: The left kidney measures 11.0 x 5.5 x 5.2 cm The parenchymal echotexture and cortical thickness are normal. No nephrolithiasis or hydronephrosis. SPLEEN: The spleen measures 12.2 cm and is normal in echotexture. No focal lesions are identified. VASCULATURE: The visualized aorta and inferior vena cava are sub-visualized although appear normal as seen. As per general surgery there is no acute surgical intervention indicated at this time for abdominal complaints No cardiac history in a young adult, but patient also noted pain radiates up into his chest and causes palpitations troponins negative x 3 transferred to telemetry for monitoring and no arrhythmia or tachycardia found transthoracic echo ordered: normal results * Normal LV chamber size with borderline concentric LVH. * Normal LV systolic function, EF 60-65%. * No segmental left ventricular wall motion abnormalities are noted. * Normal diastolic function. * No significant valvular pathology. Procedure Details * A complete two-dimensional transthoracic echocardiogram was performed (2D, M-mode, Doppler and color flow Doppler). Left Ventricle * The left ventricle is normal in size. * There is normal left ventricular wall thickness. * Left ventricular systolic function is normal. * No segmental left ventricular wall motion abnormalities are noted. * Ejection Fraction = 60-65%. * The left ventricular wall motion is normal. Right Ventricle * The right ventricular cavity size is normal (basal dimension <4.2 cm in right ventricular apical 4-chamber view). * The right ventricular systolic function is normal as assessed by tricuspid annular plane systolic excursion (TAPSE) (normal >1.5 cm). Atria * The left atrial size is normal. * Right atrial size is normal. * No ASD detected; PFO is not assessed. Mitral Valve * The mitral valve is normal in structure and function. Tricuspid Valve * The tricuspid valve is normal in structure and function. Aortic Valve * The aortic valve is normal in structure and function. Pulmonic Valve * The pulmonary valve is not well seen, but the Doppler examination is normal without significant regurgitation or stenosis. Great Vessels * The aortic root is normal size. Pericardium/Pleural * There is no pericardial effusion. Left Ventricular Diastolic Function * Pulse wave TDI of the anterior and posterior mitral annulas demonstrates normal LV relaxation Cardiology physician evaluated the patient and did not find evidence for cardiac chest pain PCP: [facility] Disposition: Return to [facility] with prescriptions for non-narcotic pain medications, patient advised drink a lot of water, avoid fatty foods, follow up with primary care doctor for follow up and if needed for referral for surgery clinic. However based on the evaluation as inpatient, there is no urgent surgical intervention for the gallstones at this time. Current Hospital Diet Patient's current hospital diet: Regular Diet Discharge Diet Recommended Diet: AHA Diet (Heart Healthy) Pending Studies Studies pending at discharge: no Laboratory Results 01/18/17 05:50 Red Blood Count 4.43, Mean Corpuscular Volume 91.2, Mean Corpuscular Hemoglobin 29.1, Mean Corpuscular Hemoglobin Concent 31.9, Mean Platelet Volume 9.8, Neutrophils (%) (Auto) 44.1, Lymphocytes (%) (Auto) 42.0, Monocytes (%) (Auto) 9.5, Eosinophils (%) (Auto) 3.1, Basophils (%) (Auto) 1.1, Neutrophils # (Auto) 2.68, Lymphocytes # (Auto) 2.56, Monocytes # (Auto) 0.58, Eosinophils # (Auto) 0.19, Basophils # (Auto) 0.07 01/18/17 05:50 Test 01/16/17 15:27 01/16/17 15:46 01/16/17 16:35 01/16/17 18:49 Direct Bilirubin 0.2 mg/dl (0-0.2) Lipase 88 U/L (73-393) Bedside Hemoglobin 15.6 g/dl (14.0-18.0) Bedside Hematocrit 46 % (42-52) Bedside Sodium 142 mEq/L (135-144) Bedside Potassium 3.8 mEq/L (3.3-5.0) Bedside Chloride 102 mEq/L (101-112) Bedside Total CO2 28 mEq/l (24-31) Bedside Blood Urea Nitrogen 8 mg/dl (7-18) Bedside Creatinine 0.8 mg/dl (0.6-1.3) Bedside Glucose (other) 75 mg/dl (70-99) Bedside Ionized Calcium ([place]) 1.20 mmol/l (1.12-1.32) Urine Color YELLOW Urine Appearance CLEAR (CLEAR) Urine pH 6.5 (4.5-7.5) Urine Specific [place] 1.011 (1.000-1.030) Urine Protein NEG (NEG) Urine Glucose (UA) NEG (NEG) Urine Ketones NEG (NEG) Urine Occult Blood NEG (NEG) Urine Nitrite NEG (NEG) Urine Bilirubin NEG (NEG) Urine Urobilinogen NEG (NEG) Urine Leukocyte Esterase NEG (NEG) Bedside Lactic Acid Venous 0.54 mmol/L (0.90-1.70) Test 01/17/17 10:23 01/17/17 22:14 01/18/17 05:50 Lactic Acid Level 0.7 mmol/L (0.4-2.0) Magnesium Level 1.8 mg/dl (1.8-2.4) Total Creatine Kinase 41 U/L (39-308) Creatine Kinase MB < 0.5 ng/ml (0.5-3.6) Creatine Kinase MB Ratio (0-3.0) Thyroid Stimulating Hormone (TSH) 2.120 uIu/ml (0.300-4.500) Thyroxine (T4) 8.0 mcg/dl (4.5-10.9) Troponin I < 0.015 ng/ml (0-0.045) White Blood Count 6.09 K/uL (4.8-10.8) Red Blood Count 4.43 M/uL (4.7-6.1) Hemoglobin 12.9 g/dL (14.0-18.0) Hematocrit 40.4 % (42-52) Mean Corpuscular Volume 91.2 fL (80-100) Mean Corpuscular Hemoglobin 29.1 pg (25-34) Mean Corpuscular Hemoglobin Concent 31.9 g/dl (32-36) Platelet Count 222 K/uL (130-400) Mean Platelet Volume 9.8 fL (7.4-10.4) Neutrophils (%) (Auto) 44.1 % Lymphocytes (%) (Auto) 42.0 % Monocytes (%) (Auto) 9.5 % Eosinophils (%) (Auto) 3.1 % Basophils (%) (Auto) 1.1 % Neutrophils # (Auto) 2.68 K/uL (1.4-6.5) Lymphocytes # (Auto) 2.56 K/uL (1.2-3.4) Monocytes # (Auto) 0.58 K/uL (0.11-0.59) Eosinophils # (Auto) 0.19 K/uL (0-0.5) Basophils # (Auto) 0.07 K/uL (0-0.2) RDW Standard Deviation 47.5 fL (36.4-46.3) RDW Coefficient of Variation 14.2 % (11.5-14.5) Immature Granulocyte % (Auto) 0.2 % Immature Granulocyte # (Auto) 0.01 K/uL (0.00-0.02) Anion Gap 3.0 mmol/L (3-11) Est Creatinine Clear Calc Drug Dose 173.7 ml/min Estimated GFR () 142.2 Estimated GFR (Non- 122.7 BUN/Creatinine Ratio 8.1 (10-20) Calcium Level 8.3 mg/dl (8.5-10.1) Total Bilirubin 0.5 mg/dl (0.2-1) Aspartate Amino Transf (AST/SGOT) 14 U/L (15-37) Alanine Aminotransferase (ALT/SGPT) 30 U/L (12-78) Alkaline Phosphatase 63 U/L (45-117) Total Protein 5.9 gm/dl (6.4-8.2) Albumin 3.0 gm/dl (3.4-5.0) Globulin 2.9 gm/dl (2.5-4.0) Albumin/Globulin Ratio 1.0 (0.9-2) Medical Emergencies . Who to Call and When: Medical Emergencies: If at any time you feel your situation is an emergency, please call 911 immediately. . Non-Emergent Contact Non-Emergency issues call your: Primary Care Provider . . "Provider Documentation" section prepared by Hal Sloan. . VTE Core Measure Inpt VTE Proph given/why not?: SCD's
--- NOTE | 2017-01-18 13:43 | Discharge Summary ---
Discharge Summary Date of Service Jan 18, 2017. Discharge Summary Admission Date: Jan 16, 2017 at 21:42 Discharge Date: Jan 18, 2017 Discharge Disposition: Home ([facility]) Principal Diagnosis: abdominal pain, gallstones, non cardiac chest pain, palpitation sensations without arrhythmia or tachycardia Medication Reconciliation Continued Medications: Ibuprofen (Motrin) 400 Mg Tab 800 MG PO TID PRN for Pain for 15 Days, #90 TAB (This prescription has been renewed) Admission Information HPI (per Admitting provider): This is a 31yo M with a PMH of tobacco use disorder who presents from [facility] with abdominal pain and nausea that started 3 days ago. Patient had an appendectomy performed at [facility] on 12/[address] Shaw with post-op course complicated by an ileus. Was discharged on 12/31 and completed a one week post-op course of Augmentin. States that since the surgery he has felt back to normal, endorsing a normal PO intake and regular bowel movements. Three days ago, patient started to experience intermittent, severe, 10/10 RLQ abdominal pain with radiation to his epigastrium and chest. Describes pain as sharp and throbbing. Is made worse with movement and better with rest. Has been taking ibuprofen PRN without relief. States that pain has progressively worsened over the past few days, from 8/10 to 10/10 today. Has been nauseous and experiencing acid reflux but not vomiting. Endorses some lightheadedness, chills, palpitations and dysuria in addition to his pain. Denies fever, headache , dyspnea, SOB, diarrhea, constipation, LE pain or swelling. Also denies other urinary symptoms such as increased frequency, hematuria, flank pain. Had 2 bowel movements this morning of normal color and caliber. Of note, patient is hearing impaired and interview took place with the help of a ux designer. Physical Exam (per Admitting): General Appearance: WD/WN, + mild distress Head: normocephalic, atraumatic Eyes: normal inspection, PERRL ENT: + pertinent finding (Deaf) Neck: supple, no adenopathy, trachea midline Respiratory/Chest: chest non-tender, lungs clear, normal breath sounds, no respiratory distress, no accessory muscle use Cardiovascular: regular rate, rhythm, no murmur, normal peripheral pulses Abdomen/GI: soft, no organomegaly, no pulsatile mass, + tenderness (Mild TTP in epigastrium. TTP in RLQ with guarding.), + abnormal bowel sounds ( Hypoactive but present in all 4 quadrants.) Extremities/Musculoskelatal: normal inspection, no calf tenderness, no pedal edema Neurologic/Psych: alert, normal mood/affect, oriented x 3 Skin: normal color, warm/dry, no rash Hospital Course 31 year old man who is s/p laparoscopy on 12/21/16 for non-perforated appendicitis with subsequent ileus (resolved non operatively) who presents with 2 days of RLQ / pelvic pain. On admission patient Afebrile, hemodynamically stable and normal. No leukocytosis or other lab abnormalities. UA is negative for UTI. CT scan completed Radiology impressions 1. Continued interval evolution of postsurgical/postinflammatory changes with resolving phlegmon in the pelvis/left lower quadrant. No new abscess. 2. Stable to slight interval increase in focal infiltration of the fat along the right colon, which could suggest involving omental infarct. 3. Post surgical changes of appendectomy. as per general surgery impression: ,shows post operative changes from appendectomy, possible concern for omental infarct. No abscesses or drainable collections, no signs of obstruction or perforation. Abdominal ultrasound significant for gallstones but no dilation of bile ducts PANCREAS: The pancreas is partially obscured by bowel gas. The visualized portions of the pancreas are normal without focal lesion or pancreatic duct dilatation. LIVER: The liver is mildly echogenic ingesting possible fatty infiltration. Liver measures 18.3 cm in length. There is no intrahepatic bile duct dilation, focal lesion, or contour nodularity. There is no ascites. GALLBLADDER: Stone filled gallbladder noted with posterior acoustic shadowing. Gallstones are seen within the region of the gallbladder neck. Gallbladder wall measures in the upper limits of normal at 0.3 cm. No definite pericholecystic fluid collections.. Positive sonographic Garcai's sign. The common bile duct measures 0.5 cm. RIGHT KIDNEY: The right kidney measures 10.1 x 4.2 x 5.0 cm The parenchymal echotexture and cortical thickness are normal. No nephrolithiasis or hydronephrosis. LEFT KIDNEY: The left kidney measures 11.0 x 5.5 x 5.2 cm The parenchymal echotexture and cortical thickness are normal. No nephrolithiasis or hydronephrosis. SPLEEN: The spleen measures 12.2 cm and is normal in echotexture. No focal lesions are identified. VASCULATURE: The visualized aorta and inferior vena cava are sub-visualized although appear normal as seen. As per general surgery there is no acute surgical intervention indicated at this time for abdominal complaints No cardiac history in a young adult, but patient also noted pain radiates up into his chest and causes palpitations troponins negative x 3 transferred to telemetry for monitoring and no arrhythmia or tachycardia found transthoracic echo ordered: normal results * Normal LV chamber size with borderline concentric LVH. * Normal LV systolic function, EF 60-65%. * No segmental left ventricular wall motion abnormalities are noted. * Normal diastolic function. * No significant valvular pathology. Procedure Details * A complete two-dimensional transthoracic echocardiogram was performed (2D, M-mode, Doppler and color flow Doppler). Left Ventricle * The left ventricle is normal in size. * There is normal left ventricular wall thickness. * Left ventricular systolic function is normal. * No segmental left ventricular wall motion abnormalities are noted. * Ejection Fraction = 60-65%. * The left ventricular wall motion is normal. Right Ventricle * The right ventricular cavity size is normal (basal dimension <4.2 cm in right ventricular apical 4-chamber view). * The right ventricular systolic function is normal as assessed by tricuspid annular plane systolic excursion (TAPSE) (normal >1.5 cm). Atria * The left atrial size is normal. * Right atrial size is normal. * No ASD detected; PFO is not assessed. Mitral Valve * The mitral valve is normal in structure and function. Tricuspid Valve * The tricuspid valve is normal in structure and function. Aortic Valve * The aortic valve is normal in structure and function. Pulmonic Valve * The pulmonary valve is not well seen, but the Doppler examination is normal without significant regurgitation or stenosis. Great Vessels * The aortic root is normal size. Pericardium/Pleural * There is no pericardial effusion. Left Ventricular Diastolic Function * Pulse wave TDI of the anterior and posterior mitral annulas demonstrates normal LV relaxation Cardiology physician evaluated the patient and did not find evidence for cardiac chest pain PCP: [facility] Disposition: Return to [facility] with prescriptions for non-narcotic pain medications, patient advised drink a lot of water, avoid fatty foods, follow up with primary care doctor for follow up and if needed for referral for surgery clinic. However based on the evaluation as inpatient, there is no urgent surgical intervention for the gallstones at this time. Total time spent on discharge = This includes examination of the patient, discharge planning, medication reconciliation, and communication with other providers. Discharge Instructions Disposition: Return to correction with prescriptions for non-narcotic pain medications, patient advised drink a lot of water, avoid fatty foods, follow up with primary care doctor for follow up and if needed for referral for surgery clinic. However based on the evaluation as inpatient, there is no urgent surgical intervention for the gallstones at this time.
== END 2017-01-18 14:38 ==
LOC: C.EDB 14:33 → C.MSW 21:42 → ENRESERV 22:03 → C.2E 01-17 11:06
PROVIDERS: ADMIT Hospitalist; ATTEND Hospitalist
DX: R10.9 Unspecified abdominal pain (principal); K80.20 Calculus of gallbladder without cholecystitis without obstruction; R07.89 Other chest pain; R00.2 Palpitations; H91.90 Unspecified hearing loss, unspecified ear; Z90.89 Acquired absence of other organs; Z87.891 Personal history of nicotine dependence